=== PATIENT | female | born 1970 | race Caucasian/White ===

== ENCOUNTER 2016-06-03 15:47 | Outpatient (CLI) | payer MEDICAID | END 2016-06-03 15:48 | disposition home or self-care (01) | DX: R30.0 Dysuria (principal); K76.0 Fatty (change of) liver, not elsewhere classified ==

== ENCOUNTER 2016-08-18 08:51 | Outpatient (CLI) | payer MEDICAID | END 2016-08-18 08:52 | disposition home or self-care (01) | DX: C50.412 Malignant neoplasm of upper-outer quadrant of left female breast (principal); L76.34 Postprocedural seroma of skin and subcutaneous tissue following other procedure ==

== ENCOUNTER 2016-09-01 09:45 | Outpatient (CLI) | payer MEDICAID | END 2016-09-01 09:46 | disposition home or self-care (01) | DX: E78.2 Mixed hyperlipidemia (principal); E66.9 Obesity, unspecified ==

== ENCOUNTER 2016-09-13 19:02 | Outpatient (CLI) | payer MEDICAID | END 2016-09-13 19:03 | disposition home or self-care (01) | DX: R10.9 Unspecified abdominal pain (principal); Z85.3 Personal history of malignant neoplasm of breast ==

== ENCOUNTER 2016-10-05 11:41 | Emergency (ER) | payer MEDICAID ==
--- NOTE | 2016-10-05 12:22 | ED Physician Documentation ---
History of Present Illness - Stated complaint Stated Complaint: L FOOT PX- NO INJ - Chief complaint Chief Complaint: Ext Problem - Treatment prior to arrival Treatment prior to arrival: hx from pt 36 f insidious onset pain and swelling to MTP joints first left and now, less so, right no erythema no fever no trauma no other joint pains Review of Systems Musculoskeletal: reports: Pain with weight bearing PD PAST MEDICAL HISTORY - Past Medical History Past Medical History: Yes Cardiovascular: None Respiratory: Asthma Neuro: Peripheral neuropathy Endocrine/Autoimmune: None VEGETABLE COOK: Breast cancer Psych: None Musculoskeletal: Chronic back pain - Past Surgical History Past Surgical History: Yes General: Appendectomy /VEGETABLE COOK: Other - Present Medications Home Medications: Ambulatory Orders Medication Instructions Recorded Confirmed Albuterol Sulfate [Proventil Hfa] 1 puffs IH Q6HR PRN 12/29/15 10/05/16 Hydrochlorothiazide 12.5 mg PO DAILY 12/29/15 10/05/16 Omeprazole 1 cap PO DAILY 12/29/15 10/05/16 Tamoxifen 20 mg PO DAILY 12/29/15 10/05/16 Aspirin [Adult Low Dose Aspirin EC] 81 mg PO DAILY 06/28/16 10/05/16 predniSONE [Deltasone] 20 mg PO [id number] #21 tab 10/05/16 - Allergies Allergies/Adverse Reactions: Allergies Allergy/AdvReac Type Severity Reaction Status Date / Time No Known Drug Allergies Allergy Verified 06/19/13 12:11 - Social History Does the pt smoke?: No Smoking Status: Never smoker Does the pt drink ETOH?: No Does the pt have substance abuse?: No - Immunizations Immunizations are current?: Yes - POLST Patient has POLST: No PD ED PE NORMAL - Vitals Vital signs reviewed: Yes - Extremities Extremities: Other (mod edema but no war,th or swelling to L MTP, pain with ROM , no swelling but still some pain with ROM R MTP, dec senation to all toes 2/2 neuropathy 2/2 prior chemo, + cap refill) - Neuro Neuro: No motor deficit, No sensory deficit Results - Vitals Vitals: Vital Signs - 24 hr 10/05/16 10/05/16 11:45 13:43 Temperature 36.0 C L 36.7 C Heart Rate 76 71 Respiratory 18 18 Rate Blood Pressure 109/75 124/73 O2 Saturation 99 98 Oxygen O2 Source Room air - Rads (name of study) foot Radiology: See rad report (degen changes 1st MTP) Departure - Departure Disposition: 01 Home, Self Care Clinical Impression: Arthritis Condition: Good Instructions: ED Degenerative Joint Disease Prescriptions: predniSONE [Deltasone] 20 mg PO [id number] #21 tab Comments: The exam does not suggest a joint infection or gout The xrays shows degenerative changes but no fractures I recommend that you try taking steroid taper to decrease the inflammation ( since you prefer not to take NSAIDS) as well as glucosamine/chondroitin for joint health. Also we provided some crutches to help get the weight bearing stress off your foot and allow the inflammation to subside Forms: Activity restrictions
--- NOTE | 2016-10-05 12:40 | XRAY Preliminary Report ---
Exam: XR Foot 3 View LT IMPRESSION: No acute fracture or dislocation identified. [facility] SITE ID: [id number]
--- NOTE | 2016-10-05 12:42 | XRAY Report ---
EXAM: LEFT FOOT RADIOGRAPHY EXAM DATE: 10/05/2016 12:19 PM. CLINICAL HISTORY: 2st MTP jt pain swell s trauma. COMPARISON: None. TECHNIQUE: 3 views. FINDINGS: Bones: Bony mineralization appears appropriate. No acute fracture or focal osseous destruction identi fied. Joints: Mild degenerative change at the first MTP, otherwise alignment and joint spaces appear mainta ined. No dislocation. Soft Tissues: No radiopaque foreign body. IMPRESSION: No acute fracture or dislocation identified. [facility] Referring Provider Line: [phone] SITE ID: [id number]
[2016-10-05 13:44] VITALS: BP 124/73
== END 2016-10-05 13:58 | disposition home or self-care (01) ==
LOC: ED 11:41
DX: M19.071 Primary osteoarthritis, right ankle and foot (principal); J45.909 Unspecified asthma, uncomplicated; G62.9 Polyneuropathy, unspecified
CPT/HCPCS: 99283

== ENCOUNTER 2016-10-10 12:50 | Outpatient (CLI) | payer MEDICAID | END 2016-10-10 12:51 | disposition home or self-care (01) | LOC: DI 12:50 | PROVIDERS: ATTEND Internal Medicine Hematology & Oncology | DX: Z79.810 Long term (current) use of selective estrogen receptor modulators (SERMs) (principal); I51.7 Cardiomegaly; C50.919 Malignant neoplasm of unspecified site of unspecified female breast | CPT/HCPCS: 93306 ==

== ENCOUNTER 2016-11-04 11:01 | Day surgery (SDC) | payer MEDICAID ==
[2016-11-04] MEDS ORDERED: LACTATED RINGERS 1,000 ML IV ONE (11:25)
[2016-11-04] MEDS ORDERED: fentaNYL 100 MCG/2 ML VIAL IVP ONE (11:40)
[2016-11-04] MEDS ORDERED: MIDAZOLAM 2 MG/2 ML VIAL IVP ONE (11:40)
[2016-11-04 12:47] VITALS: BP 123/57
== END 2016-11-04 11:02 | disposition home or self-care (01) ==
LOC: SDS 11:01
PROVIDERS: ATTEND Surgery
PROC: 0DBE8ZX Excision of Large Intestine, Via Natural or Artificial Opening Endoscopic, Diagnostic (ICD-10-PCS; 2016-11-04)
PROC: 0DBH8ZX Excision of Cecum, Via Natural or Artificial Opening Endoscopic, Diagnostic (ICD-10-PCS; principal; 2016-11-04 12:00)
DX: R10.31 Right lower quadrant pain (principal); K64.8 Other hemorrhoids; R12 Heartburn; I10 Essential (primary) hypertension; J45.909 Unspecified asthma, uncomplicated; E66.9 Obesity, unspecified; Z85.3 Personal history of malignant neoplasm of breast; Z92.21 Personal history of antineoplastic chemotherapy; Z92.3 Personal history of irradiation; Z79.82 Long term (current) use of aspirin; Z87.891 Personal history of nicotine dependence; Z68.39 Body mass index [BMI] 39.0-39.9, adult
CPT/HCPCS: 45380; J7120; 88305

== ENCOUNTER 2016-11-21 14:24 | Inpatient (IN) | payer MEDICAID ==
--- NOTE | 2016-11-21 14:44 | ED Physician Documentation ---
PD HPI NVD - Stated complaint Stated Complaint: VOMITTING, DIARRHEA - Chief complaint Chief Complaint: Abd Pain - History obtained from History obtained from: Patient - History of Present Illness Timing - onset: Yesterday Timing - details: Abrupt onset, Still present, Still present in ED Associated symptoms: Abdominal pain (diffuse cramping pain, with most area of it ), Other (vomiting and diarrhea with diffuse intermittent abd cramping pains, severe at times.). No: Fever Contributing factors: No: Sick contact, Bad food, Travel, Recent antibiotics Improved by: No: Vomiting, BM, Position Worsened by: Palpation. No: Eating, Breathing, Position Similar symptoms before: No diagnosis (Has had infrequent similar episodes in the past with interval normal stools. Has had persistent right sided abd pains, with workup) Review of Systems Constitutional: reports: Chills. denies: Fever Nose: denies: Rhinorrhea / runny nose, Congestion Throat: denies: Sore throat Cardiac: denies: Chest pain / pressure Respiratory: denies: Dyspnea, Cough, Wheezing GI: reports: Abdominal Pain (crampy diffuse, mostly right sided), Nausea, Vomiting, Diarrhea : denies: Dysuria, Frequency Skin: denies: Rash, Lesions Neurologic: reports: Generalized weakness. 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 CHASER: Breast cancer : None HEENT: None Psych: None Musculoskeletal: Osteoarthritis, Chronic back pain Derm: None - Past Surgical History Past Surgical History: Yes General: Appendectomy, Other /BRONZE CHASER: Other - Present Medications Home Medications: Ambulatory Orders Medication Instructions Recorded Confirmed Albuterol Sulfate [Proventil Hfa] 1 puffs IH Q6HR PRN 12/29/15 11/21/16 Hydrochlorothiazide 12.5 mg PO DAILY 12/29/15 11/21/16 Omeprazole 1 cap PO DAILY 12/29/15 11/21/16 Tamoxifen 20 mg PO DAILY 12/29/15 11/21/16 Aspirin [Adult Low Dose Aspirin EC] 81 mg PO DAILY 06/28/16 11/21/16 - Allergies Allergies/Adverse Reactions: Allergies Allergy/AdvReac Type Severity Reaction Status Date / Time No Known Drug Allergies Allergy Verified 10/28/16 17:25 - Social History Does the pt smoke?: No Smoking Status: Never smoker Does the pt drink ETOH?: No Does the pt have substance abuse?: No - Family History Family history: reports: Other (no Crohns nor UC.) - Immunizations Immunizations are current?: Yes - POLST Patient has POLST: No PD ED PE NORMAL - Vitals Vital signs reviewed: Yes - General General: Alert and oriented X 3, Well developed/nourished, Other (appears uncomfortable) - HEENT HEENT: Moist mucous membranes, Pharynx benign - Neck Neck: Supple, no meningeal sign, No adenopathy - Cardiac Cardiac: RRR, No murmur - Respiratory Respiratory: Clear bilaterally - Abdomen Abdomen: Soft, Non distended, No organomegaly, Other (tender mid abdomen and right sided mid abdomen mostly, but some diffusely without percussion nor rebound. ). No: Normal bowel sounds (increased) - Female Female : Deferred - Rectal Rectal: Deferred - Back Back: No CVA TTP - Derm Derm: Normal color, Warm and dry, No rash - Extremities Extremities: No deformity, No tenderness to palpate - Neuro Neuro: Alert and oriented X 3, No motor deficit, Normal speech Results - Vitals Vitals: Vital Signs - 24 hr 11/21/16 11/21/16 11/21/16 14:26 15:57 17:55 Temperature 36.3 C L Heart Rate 96 78 77 Respiratory 16 18 16 Rate Blood Pressure 139/85 H 116/71 120/56 L O2 Saturation 96 96 100 Oxygen O2 Source Room air - Labs Labs: Laboratory Tests 11/21/16 11/21/16 11/21/16 15:21 15:30 15:30 WBC 10.4 RBC 4.23 Hgb 12.7 Hct 36.1 L MCV 85.5 MCH 30.0 MCHC 35.1 RDW 13.5 Plt Count 199 MPV 7.3 L Neut # 8.9 H Lymph # 0.9 L Fajardo # 0.5 Eos # 0.0 Baso # 0.1 Absolute Nucleated RBC 0.00 Nucleated RBCs 0.0 ESR Sodium 135 Potassium 3.4 L Chloride 101 Carbon Dioxide 25 Anion Gap 9.0 BUN 11 Creatinine 0.6 Estimated GFR (MDRD) 107 Glucose 115 H Calcium 8.9 Magnesium 1.8 Total Bilirubin 0.3 AST 22 ALT 19 Alkaline Phosphatase 52 Total Protein 7.4 Albumin 3.9 Globulin 3.5 Albumin/Globulin Ratio 1.1 Lipase 14 L Urine Color YELLOW Urine Clarity HAZY Urine pH 6.0 Ur Specific [place] >=1.030 H Urine Protein 100 H Urine Glucose (UA) NEGATIVE Urine Ketones 15 H Urine Occult Blood LARGE H Urine Nitrite NEGATIVE Urine Bilirubin Urine Urobilinogen 0.2 (NORMAL) Ur Leukocyte Esterase NEGATIVE Ur Microscopic Review NOT INDICATED Urine Culture Comments NOT INDICATED Urine HCG, Qual NEGATIVE 11/21/16 15:30 WBC RBC Hgb Hct MCV MCH MCHC RDW Plt Count MPV Neut # Lymph # Fajardo # Eos # Baso # Absolute Nucleated RBC Nucleated RBCs ESR 33 H Sodium Potassium Chloride Carbon Dioxide Anion Gap BUN Creatinine Estimated GFR (MDRD) Glucose Calcium Magnesium Total Bilirubin AST ALT Alkaline Phosphatase Total Protein Albumin Globulin Albumin/Globulin Ratio Lipase Urine Color Urine Clarity Urine pH Ur Specific [place] Urine Protein Urine Glucose (UA) Urine Ketones Urine Occult Blood Urine Nitrite Urine Bilirubin Urine Urobilinogen Ur Leukocyte Esterase Ur Microscopic Review Urine Culture Comments Urine HCG, Qual - Rads (name of study) abd CT Radiology: Prelim report reviewed (colitis in ascending and transverse colon without focal abscess/perforation/etc.), EMP read contemporaneously PD MEDICAL DECISION MAKING - ED course Complexity details: re-evaluated patient (She was better with some fluids and meds for about 1 1/2 hours, but then symptoms back again. Given repeat meds for nausea and pain with improvement in cramps/pain, but still with nausea and emesis of sips of water. Given Phenergan IV. Recheck is still some nausea and attempted PO intake with emesis. ), considered differential (Seems likely viral GE or food related, but does have some area right abd (mid to lower) that is worse and had biopsies with colonoscopy 2 weeks ago. Concern for abscess, perforation, procedure related, though would expect those to be within few days to week or so. CT done to evaluate, along with IV fluids and meds. ), d/w patient, d/w consultant education (Dr. Deluna, chyron operator for surgery, who felt the CT findings and time interval from biopsies/colonoscopy would not be consistent with procedure related problem. Thus less likely to be bacterial. ), other ( Still with nausea and some cramps after several different medications. I don't feel she will maintain hydration nor be able to take meds as not tolerating PO here. Talked with Hospitalist about OBS. ) Departure - Departure Disposition: ED Place in Observation Clinical Impression: Nausea vomiting and diarrhea Abdominal pain Qualifiers: Abdominal location: generalized Qualified Code(s): R10.84 - Generalized abdominal pain Intractable vomiting with nausea Qualifiers: Vomiting type: unspecified Qualified Code(s): R11.2 - Nausea with vomiting, unspecified Condition: Stable Record reviewed to determine appropriate education?: Yes
[2016-11-21] MEDS ORDERED: KETOROLAC 60 MG/2 ML VIAL IVP STA (15:08)
[2016-11-21] MEDS ORDERED: ONDANSETRON 4 MG/2 ML VIAL IVP STA ×2 (15:08→17:53)
[2016-11-21] MEDS ORDERED: HYDROmorphone 1 MG/ML SYRINGE IVP STA ×2 (15:08→17:53)
[2016-11-21] MEDS ORDERED: SODIUM CHLORIDE 0.9% 1,000 ML IV ONE ×2 (15:08→18:53)
[2016-11-21] MEDS ORDERED: KETOROLAC 30 MG/ML VIAL ONE (15:33)
[2016-11-21] MEDS ORDERED: HYDROmorphone 1 MG/ML SYRINGE ONE ×2 (15:33→17:54)
[2016-11-21] MEDS ORDERED: ONDANSETRON 4 MG/2 ML VIAL ONE ×2 (15:33→17:54)
[2016-11-21 15:38] LABS: HCG UR QUAL NEGATIVE; UA CHARGE (STRIP ONLY) YES; UR CULTURE IF IND NOT INDICATED
[2016-11-21 15:38] LABS: BASOPHILS # (AUTO) 0.1 10^3/uL (0.0-0.1); BASOPHILS % (AUTO) 0.5 %; EOSINOPHILS % (AUTO) 0.4 %; HCT - HEMATOCRIT 36.1 % (37.0-47.0); HGB - HEMOGLOBIN 12.7 g/dL (12.0-16.0); LYMPHOCYTES # (AUTO) 0.9 10^3/uL (1.5-3.5); LYMPHOCYTES % (AUTO) 8.4 %; MEAN CORPUSCULAR HGB CONC 35.1 g/dL (32.0-36.0); MEAN CORPUSCULAR VOLUME 85.5 fL (81.0-99.0); MEAN PLATELET VOLUME 7.3 fL (7.9-10.8); MONOCYTES # (AUTO) 0.5 10^3/uL (0.0-1.0); MONOCYTES % (AUTO) 4.8 %; NEUTROPHILS # (AUTO) 8.9 10^3/uL (1.5-6.6); NEUTROPHILS % (AUTO) 85.9 %; RED BLOOD COUNT 4.23 10^6/uL (4.20-5.40); RED CELL DISTRIBUTION WIDTH 13.5 % (12.0-15.0); UNCORRECTED WHITE BLOOD COUNT 10.4 x10^3/uL; WHITE BLOOD COUNT 10.4 x10^3/uL (4.8-10.8)
[2016-11-21 15:48] LABS: ALBUMIN/GLOBULIN RATIO 1.1 (1.0-2.2); BILIRUBIN,TOTAL 0.3 mg/dL (0.2-1.0); CALCIUM 8.9 mg/dL (8.5-10.3); CREATININE 0.6 mg/dL (0.4-1.0); MAGNESIUM 1.8 mg/dL (1.7-2.8); POTASSIUM 3.4 mmol/L (3.5-5.0); TOTAL PROTEIN 7.4 g/dL (6.7-8.2)
[2016-11-21] MEDS ORDERED: IOPAMIDOL-300 100 ML VIAL IVP ONE (16:20)
[2016-11-21] MEDS ORDERED: DIPHENOX/ATROPINE 2.5/0.025 MG TABLET PO STA (17:13)
[2016-11-21] MEDS ORDERED: DIPHENOX/ATROPINE 2.5/0.025 MG TABLET PO ONE (17:19)
--- NOTE | 2016-11-21 17:19 | CT Preliminary Report ---
Exam: CT Abdomen/Pelvis W/ IMPRESSION: 1. Mild colitis. No fluid collections or pneumoperitoneum. [facility] SITE ID: [id number]
--- NOTE | 2016-11-21 17:22 | CT Report ---
EXAM: CT ABDOMEN AND PELVIS EXAM DATE: 11/21/2016 04:23 PM. CLINICAL HISTORY: V/D, abd pain; colonoscopy 2 weeks ago. COMPARISONS: None. TECHNIQUE: Routine helical CT imaging was performed through the abdomen and pelvis. IV contrast: 100 mL Isovue-300. Enteric contrast: No. Reconstructions: Coronal and sagittal. In accordance with CT protocol optimization, one or more of the following dose reduction techniques w ere utilized for this exam: automated exposure control, adjustment of mA and/or KV based on patient s ize, or use of iterative reconstructive technique. FINDINGS: Lung Bases: Unremarkable. Liver: Slightly decreased attenuation suggesting fatty infiltration. No focal liver lesions. Gallbladder/Bile Ducts: Unremarkable. Spleen: Normal. Pancreas: Normal. Adrenal Glands: Normal. Kidneys: Normal. No masses or hydronephrosis. Peritoneal Cavity/Bowel: The colon is under distended however there is mild pericolonic stranding hiwot und the transverse and ascending colon mild mural thickening also seen. No small bowel dilatation. No evidence of appendicitis. Pelvic Organs: Normal. The bladder and visualized pelvic organs are within normal limits. Vasculature: No aneurysms or other significant abnormality. Bones: No significant abnormality. Other: None. IMPRESSION: 1. Mild colitis. No fluid collections or pneumoperitoneum. [facility] Referring Provider Line: [phone] SITE ID: [id number]
[2016-11-21] MEDS ORDERED: DEXAMETHASONE 10 MG/ML VIAL IVP STA (17:41)
[2016-11-21] MEDS ORDERED: DEXAMETHASONE 10 MG/ML VIAL ONE (17:51)
[2016-11-21] MEDS ORDERED: PROMETHAZINE INJ 12.5 MG in SODIUM CHLORIDE 0.9% 50 ML IV STA (18:35)
[2016-11-21] MEDS ORDERED: PROMETHAZINE 25 MG/1 ML VIAL ONE (18:39)
[2016-11-21] MEDS ORDERED: SODIUM CHLORIDE FLUSH 0.9% 10 ML SYRINGE IVP PRN (19:25)
[2016-11-21] MEDS ORDERED: ACETAMINOPHEN 325 MG TABLET PO PRN (19:25)
--- NOTE | 2016-11-21 19:36 | HISTORY & PHYSICAL EXAMINATION ---
Chief Complaint - Chief Complaint Chief Complaint: N/V/D History of Present Illness - Admitted From Admitted From:: ER - History Obtained From Records Reviewed: EMR. ER/ History obtained from: patient Exam Limitations: none - History of Present Illness HPI Comment/Other: this 46-year-old female presents to the emergency room complaining of nausea, vomiting, diarrhea, fever and chills,, x48 hours. She reports her temperature has ranged From 99-101. She is also having crampy lower abdominal pain, associated with watery light brown diarrhea. She has vomited mainly clear fluid. She denies blood in vomitus or in her stool. In the ER she received IV fluids, antibiotics,, pain medications,, but still could not hold down oral fluids. She is now admitted for observation. She also reports mild headache, 5-10 pound weight loss over the last several days. She says she's been having mild right lower quadrant discomfort intermittently for several months. She denies any known sick contacts. She has not done any traveling recently .She's not eaten outat any restaurants. She has not done any camping. - -she does report several episodes similar to this over the past couple of years. She recently had a CAT scan suggestive of kidney stones, but followup sonogram was negative. She does hav hematuria today, and is unaware of any history of this.. She stopped having menses about one year ago due to chemotherapy. She has not had any recent vaginal bleeding. 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 -Of note, she does smoke marijuana every day, for the past 2 years. She reports she uses 4-5 bowls per day. past medical history: Breast cancer, BRCA negative, stage II, T1 N1,, June 2015, ER positive, status post lumpectomy,, chemotherapy x6, radiation,, Herceptin History of abdominal pain with nausea Asthma History of peripheral neuropathy and history of chronic back pain Reported history of shingles history of appendectomy; left breast lumpectomy in May [address] suggested renal stone, but ultrasound showed no stones Obesity Hypertension GERD Medications: Tamoxifen 20 mg daily Omeprazole one cap daily HCTZ 12.5 mg daily Aspirin 81 mg daily Albuterol 1 puff every 6 hours when necessary allergies: No known drug allergies Family history:she is unaware of any significant family illnesses, and says her family is alive and well. Social history: Patient smoked for approximately 30 years, but quit in 2012. She does smoke marijuana daily,, as noted above. She drinks alcohol rarely. She does not currently work outside History - Past Medical History Cardiovascular: reports: Hypertension Respiratory: reports: Asthma Neuro: reports: Peripheral neuropathy Endocrine/Autoimmune: reports: None GI: reports: None FELT CARBONIZER: reports: Breast cancer : reports: None HEENT: reports: None Psych: reports: None Musculoskeletal: reports: Osteoarthritis, Chronic back pain Derm: reports: None MRSA Hx?: No - Past Surgical History General: reports: Appendectomy, Other /FELT CARBONIZER: reports: Other - POLST Patient has POLST: No Meds/Allgy - Home Medications Home Medications: Ambulatory Orders Medication Instructions Recorded Confirmed Albuterol Sulfate [Proventil Hfa] 1 puffs IH Q6HR PRN 12/29/15 11/21/16 Hydrochlorothiazide 12.5 mg PO DAILY 12/29/15 11/21/16 Omeprazole 1 cap PO DAILY 12/29/15 11/21/16 Tamoxifen 20 mg PO DAILY 12/29/15 11/21/16 Aspirin [Adult Low Dose Aspirin EC] 81 mg PO DAILY 06/28/16 11/21/16 - Allergies Allergies/Adverse Reactions: Allergies Allergy/AdvReac Type Severity Reaction Status Date / Time No Known Drug Allergies Allergy Verified 10/28/16 17:25 Exam - Vital Signs Reviewed Vital Signs: Yes Vital Signs: Vital Signs x48h Temp Pulse Resp BP Pulse Ox 11/21/16 17:55 77 16 120/56 L 100 11/21/16 15:57 78 18 116/71 96 11/21/16 14:26 36.3 C L 96 16 139/85 H 96 on exam, she is a well-developed, well-nourished, moderately overweight white female, in no acute distress. She occasional of stinging in her left hand, at the site of her IV. Towards the end of our interview, she did complain of right lower quadrant cramping. head: Normocephalic, atraumatic. Eyes: PERRLA LA, EOMI, anicteric. Ears: Right TM and canal are normal. Left TM is normal. Left canal has a small hematoma of the floor of the canal. Pharynx: Is clear. Mucosa appears She is edentulous. She does have an upper plate.. Next Neck: Is supple, without lymphadenopathy, JVD, thyromegaly, bruits. Next Cardiac exam: Shows regular rate and rhythm, with normal S1 and S2. No murmurs , rubs, gallops are noted. Lungs: Minimal wheeze, expiratory, noted at the left base. Otherwise lungs are clear to ausculta, without rales or rhonchi. Abdomen: Is soft, without guarding or rebound.bowel lSounds are active. she is fairly tender, and epigastric area, and right lower quadrant area. No masses are obvious. there is no CVA tenderness Extremities: Show no significant cya, clubbing,, edema. Neurologic exam: Is grossly nonfocal. Skin exam: Shows occasional tattoos, but no obvious rashes. Conclusion/Plan - Lab Results Fish Bones: 11/21/16 15:30 11/21/16 15:30 Other Lab Results: sedimentation rate is elevatedat 33. lipase is normal at 14 LFTs are within normal limits Urinalysis: Shows specific gravity greater than 1.030, protein 100 mg,, occult blood large, ketones 15 Urine hCG is negative CT abdomen: Reported as showing mild colitis, with mild pericolonic stranding around transverse and descending colon, with mild mural thickening.., without any fluid collections. colonoscop, 11/04/2016: Cecal polyp, biopsy.pathology read as normal. 10/10/2016: Echocardiogram: Mild concentric LVH. Normal systolic function with ejection fraction 60% Issues/Core Measures - Anticipated LOS Anticipated Stay Length: Less than 2 midnights - Issues Hospital Issues and Management Plan: #1. GI. Patient presents with abdominal pain, nausea and vomiting and diarrhea,, consistent with possible acute gastroenteritis, although CT scan is also suggestive of possible colitis. Patient failed to improve in the emergency room after IV fluids and anti-emetics, to the point that she could not be Discharged. She will therefore be admitted for continued IV fluids and symptom control, and continued observation. -admit to observation. -IV fluids. -Anti-emetics. the pain meds as needed. -Monitor vital signs. Check followup labs. -stool studies, if she has more diarrhea. -she is also a daily marijuana user, and may actually have developed cannabis hyperemesis syndrome. #2. Renal. Mild hypokalemia, likely due to GI losses. -IV replacement. #3. Code Status:Full code. #4. DVT prophylaxis: Subcutaneous heparin. #5. Hematuria. the patient does not have menses anymore.. She may need further workup after discharge. She is at increased risk for bladder cancer, as well as uterine cancer. there is a recent questionable history of renal stones. #6. History of breast cancer -followed by Dr. Hoang of oncology. #7. Hypertension. Hold HCTZ. Continue to follow. #8. History of asthma. When necessary albuterol. this visit took approximately 60 minutes,, to review old records,, review current test results, interview and examine her, and write orders. - DVT/VTE - Prophylaxis VTE/DVT Device ordered at admit?: No VTE/DVT Prophylaxis med ordered at admit?: Yes
[2016-11-21] MEDS ORDERED: NACL IV SCH (20:00)
[2016-11-21] MEDS ORDERED: POTASSIUM CHLORIDE IV SCH (20:00)
[2016-11-21] MEDS ORDERED: DEXTROSE IV SCH (20:00)
[2016-11-21] MEDS ORDERED: LOPERAMIDE 2 MG CAPSULE PO PRN (20:31)
[2016-11-21] MEDS ORDERED: ONDANSETRON 4 MG/2 ML VIAL IVP PRN (20:35)
[2016-11-21] MEDS: POTASSIUM CHLOR 10 MEQ/100 ML 100 ML IV SCH ×2 (20:53→22:39)
[2016-11-21] MEDS: D5.45NS W/20 MEQ KCL 1,000 ML IV SCH (20:53)
[2016-11-21] MEDS: HEPARIN 5,000 UNIT/ML VIAL SUBQ SCH (20:53)
[2016-11-21] MEDS ORDERED: PROMETHAZINE 12.5 MG SUPP PR PRN (21:22)
[2016-11-21] MEDS: SODIUM CHLORIDE FLUSH 0.9% 10 ML SYRINGE IVP SCH (21:47)
[2016-11-22] MEDS: LORazepam 2 MG/ML SYRINGE IVP PRN ×2 (00:25→06:02)
[2016-11-22] MEDS: D5.45NS W/20 MEQ KCL 1,000 ML IV SCH ×3 (04:52→21:26)
[2016-11-22] MEDS: SODIUM CHLORIDE FLUSH 0.9% 10 ML SYRINGE IVP SCH ×3 (05:05→21:28)
[2016-11-22 05:51] LABS: BASOPHILS % (AUTO) 0.2 %; HCT - HEMATOCRIT 35.4 % (37.0-47.0); HGB - HEMOGLOBIN 11.9 g/dL (12.0-16.0); LYMPHOCYTES # (AUTO) 0.6 10^3/uL (1.5-3.5); LYMPHOCYTES % (AUTO) 8.1 %; MEAN CORPUSCULAR HEMOGLOBIN 29.4 pg (27.0-31.0); MEAN CORPUSCULAR HGB CONC 33.6 g/dL (32.0-36.0); MEAN CORPUSCULAR VOLUME 87.4 fL (81.0-99.0); MEAN PLATELET VOLUME 7.1 fL (7.9-10.8); MONOCYTES # (AUTO) 0.2 10^3/uL (0.0-1.0); MONOCYTES % (AUTO) 3.2 %; NEUTROPHILS # (AUTO) 6.1 10^3/uL (1.5-6.6); NEUTROPHILS % (AUTO) 88.5 %; RED BLOOD COUNT 4.05 10^6/uL (4.20-5.40); UNCORRECTED WHITE BLOOD COUNT 6.9 x10^3/uL; WHITE BLOOD COUNT 6.9 x10^3/uL (4.8-10.8)
[2016-11-22 06:03] LABS: ALBUMIN/GLOBULIN RATIO 0.9 (1.0-2.2); BILIRUBIN,TOTAL 0.2 mg/dL (0.2-1.0); CALCIUM 8.6 mg/dL (8.5-10.3); CREATININE 0.6 mg/dL (0.4-1.0); POTASSIUM 3.9 mmol/L (3.5-5.0); TOTAL PROTEIN 6.8 g/dL (6.7-8.2)
[2016-11-22] MEDS ORDERED: POLYETHYLENE GLYCOL 3350 17 GM PACKET PO SCH (09:00)
[2016-11-22] MEDS: FAMOTIDINE 20 MG/50 ML 50 ML IV SCH (09:18)
[2016-11-22] MEDS: HEPARIN 5,000 UNIT/ML VIAL SUBQ SCH ×2 (10:08→21:28)
--- NOTE | 2016-11-22 13:48 | Discharge Plan ---
Discharge Plan Disposition: 01 Home, Self Care Condition: Stable No Smoking: If you smoke, Please STOP! Call for help.
[2016-11-22] MEDS: TAMOXIFEN 10 MG TABLET PO SCH (14:49)
--- NOTE | 2016-11-22 14:50 | PROVIDER PROGRESS NOTE ---
Subjective - Prog Note Date Prog Note Date: 11/22/16 - Subjective Pt reports feeling: No change Subjective: patient report her abdominal cramp is 5 out of 10, last night was 11 out of 10. Plan to d/c patient, re-assess patient. Patient state her pain is going up to 7 out 10, can not tolerate foot, nausea but not vomiting. Patient had stool sample , it is sent for test for C.Diff Objective - Vital Signs/Intake & Output Vital Signs: Vital Signs x48h Temp Pulse Resp BP Pulse Ox 11/22/16 08:45 37.0 C 77 16 125/67 97 Intake & Output: Intake & Output 11/19/16 11/20/16 11/21/16 11/22/16 23:59 23:59 23:59 23:59 Intake Total 100 2099 Output Total 1 Balance 100 2098 - Objective General Appearance: positive: Alert, Mild distress. negative: No acute distress , Lethargic Eyes Bilateral: positive: Normal inspection, PERRL, EOMI. negative: No lid inflammation ENT: positive: ENT inspection nml, Pharynx nml, No signs of dehydration. negative: Purulent nasal drainage, Pharyngeal erythema, Oral lesions Neck: positive: Nml inspection, Thyroid nml, No JVD, Trachea midline. negative : Thyromegaly, Lymphadenopathy (R), Stiff neck, Carotid bruit, Swelling/bruising Respiratory: positive: Chest non-tender, No respiratory distress, Breath sounds nml. negative: Wheezes, Rales, Rhonchi Cardiovascular: positive: Regular rate & rhythm, No murmur, No gallop. negative : Irregularly irregular, Tachycardia, Bradycardia, Systolic murmur, Diastolic murmur Peripheral Pulses: 2+ Radial (R), 2+ Radial (L), 2+ Dorsalis pedis (R), 2+ Dorsalis pedis (L) Abdomen: positive: Non-tender, Nml bowel sounds, No distention, Other ( abdominal soft.). negative: Tenderness, Guarding, Rebound, Abnml bowel sounds Back: positive: Nml inspection. negative: CVA tenderness (R), CVA tenderness (L ) Skin: positive: Color nml, No rash, Warm, Dry. negative: Cyanosis, Diaphoresis , Pallor Extremities: positive: Non-tender, Full ROM, Nml appearance, No pedal edema. negative: Pedal edema, Calf tenderness, Joint swelling Neurologic/Psychiatric: positive: Oriented x3, CN's nml (2-12), Motor nml, Sensation nml. negative: Disoriented to person, Disoriented to place, Disoriented to time, Weakness, Sensory loss, Facial droop, Slurred/abnml speech - Lab Results Fish Bones: 11/23/16 05:27 11/23/16 05:27 Other Labs: Lab Results x24hrs 11/22/16 11/22/16 Range/Units 05:40 05:40 WBC 6.9 (4.8-10.8) x10^3/uL RBC 4.05 L (4.20-5.40) 10^6/uL Hgb 11.9 L (12.0-16.0) g/dL Hct 35.4 L (37.0-47.0) % MCV 87.4 (81.0-99.0) fL MCH 29.4 (27.0-31.0) pg MCHC 33.6 (32.0-36.0) g/dL RDW 13.0 (12.0-15.0) % Plt Count 193 (130-450) 10^3/uL MPV 7.1 L (7.9-10.8) fL Neut # 6.1 (1.5-6.6) 10^3/uL Lymph # 0.6 L (1.5-3.5) 10^3/uL [place] # 0.2 (0.0-1.0) 10^3/uL Eos # 0.0 (0.0-0.7) 10^3/uL Baso # 0.0 (0.0-0.1) 10^3/uL Absolute Nucleated RBC 0.00 x10^3/uL Nucleated RBCs 0.0 /100WBC Sodium 137 (135-145) mmol/L Potassium 3.9 (3.5-5.0) mmol/L Chloride 106 (101-111) mmol/L Carbon Dioxide 23 (21-32) mmol/L Anion Gap 8.0 (6-13) BUN 9 (6-20) mg/dL Creatinine 0.6 (0.4-1.0) mg/dL Estimated GFR (MDRD) 107 (>89) Glucose 164 H (70-100) mg/dL Calcium 8.6 (8.5-10.3) mg/dL Total Bilirubin 0.2 (0.2-1.0) mg/dL AST 20 (10-42) IU/L ALT 16 (10-60) IU/L Alkaline Phosphatase 48 (42-121) IU/L Total Protein 6.8 (6.7-8.2) g/dL Albumin 3.3 (3.2-5.5) g/dL Globulin 3.5 (2.1-4.2) g/dL Albumin/Globulin Ratio 0.9 L (1.0-2.2) Assessment/Plan - Problem List (1) Abdominal pain Impression: patient had abdominal pain on and off at right lateral middle of abdomen area for at least 4 months. For the similar symptoms patient visited ER for couple of times. two weeks ago patient had colonoscopy which was unremarkable, previous CT of abdomen plus US revealed unremarkable as well. Last night CT suggest mild colitis but patient report nausea and vomiting, which not match the symptoms. Patient may have enterogastritis. Patient report she is feeling better at morning at pain 5/10, but when I plan to D/C her, she report she can not tolerate the soft low text food, and had pain at 7/10, nausea without vomiting switch patient to impatient for intractable abdominal pain, continue IVF, clear diet. add Bendyl continue to monitor vital sign In the afternoon patient report she has still abdominal pain at 7/10, can not tolerate the food and with nausea but no vomiting. For this reason, Patient will continue to be monitored over night Qualifiers: Abdominal location: generalized Qualified Code(s): R10.84 - Generalized abdominal pain (2) Intractable vomiting with nausea Impression: continue anti-emetics daily CBC, CMP, replacement of electrolytic as needed Qualifiers: Vomiting type: unspecified Qualified Code(s): R11.2 - Nausea with vomiting , unspecified (3) HTN (hypertension) Impression: stable, closely monitor BP, adjust as needed (4) History of breast cancer Impression: patient is under care of Dr. Hoang, resume Tamoxifen (5) Hematuria Impression: discuss with patient, patient state she will see [employer] as out patient
[2016-11-22] MEDS: DICYCLOMINE 10 MG CAPSULE PO SCH ×3 (15:06→21:26)
[2016-11-22] MEDS: MORPHINE 2 MG/ML SYRINGE IVP PRN ×2 (16:00→21:11)
[2016-11-22] MEDS ORDERED: PROMETHAZINE 25 MG SUPP PR PRN (17:56)
[2016-11-22] MEDS ORDERED: ALBUTEROL NEB 2.5 MG/3 ML INH PRN (19:00)
[2016-11-23] MEDS: SODIUM CHLORIDE FLUSH 0.9% 10 ML SYRINGE IVP SCH ×2 (05:07→14:06)
[2016-11-23] MEDS: D5.45NS W/20 MEQ KCL 1,000 ML IV SCH ×2 (05:07→14:06)
[2016-11-23 06:02] LABS: BASOPHILS % (AUTO) 0.4 %; EOSINOPHILS # (AUTO) 0.1 10^3/uL (0.0-0.7); EOSINOPHILS % (AUTO) 1.9 %; HCT - HEMATOCRIT 35.3 % (37.0-47.0); HGB - HEMOGLOBIN 11.6 g/dL (12.0-16.0); LYMPHOCYTES # (AUTO) 2.2 10^3/uL (1.5-3.5); LYMPHOCYTES % (AUTO) 30.1 %; MEAN CORPUSCULAR HEMOGLOBIN 29.1 pg (27.0-31.0); MEAN CORPUSCULAR VOLUME 88.2 fL (81.0-99.0); MEAN PLATELET VOLUME 7.7 fL (7.9-10.8); MONOCYTES # (AUTO) 0.6 10^3/uL (0.0-1.0); MONOCYTES % (AUTO) 8.2 %; NEUTROPHILS # (AUTO) 4.4 10^3/uL (1.5-6.6); NEUTROPHILS % (AUTO) 59.4 %; NUCLEATED RED BLOOD CELLS AUTO 0.1 /100WBC; RED CELL DISTRIBUTION WIDTH 13.4 % (12.0-15.0); UNCORRECTED WHITE BLOOD COUNT 7.5 x10^3/uL; WHITE BLOOD COUNT 7.5 x10^3/uL (4.8-10.8)
[2016-11-23 06:16] LABS: BILIRUBIN,TOTAL 0.2 mg/dL (0.2-1.0); CALCIUM 8.4 mg/dL (8.5-10.3); CREATININE 0.7 mg/dL (0.4-1.0); POTASSIUM 3.6 mmol/L (3.5-5.0); TOTAL PROTEIN 6.1 g/dL (6.7-8.2)
[2016-11-23] MEDS: DICYCLOMINE 10 MG CAPSULE PO SCH ×3 (10:04→17:22)
[2016-11-23] MEDS: FAMOTIDINE 20 MG/50 ML 50 ML IV SCH (10:04)
[2016-11-23] MEDS: TAMOXIFEN 10 MG TABLET PO SCH (10:04)
[2016-11-23] MEDS: HEPARIN 5,000 UNIT/ML VIAL SUBQ SCH (10:04)
--- NOTE | 2016-11-23 13:18 | Discharge Plan ---
Discharge Plan Disposition: Home, Self Care Condition: Good Prescriptions: Dicyclomine [Bentyl] 10 mg PO QID #40 capsule Ciprofloxacin 750 mg PO BID #20 ml Diet: Regular (noninflammatory diet) Activity Restrictions: Activity as Tolerated Shower Restrictions: No Driving Restrictions: No Weight Bearing: Full Weight Instruction Topics: Campylobacter Culture Stool, Campylobacter Infec Additional Instructions or Follow Up instructions: Please continue to take all home medication as prescribed. You have been given a prescription for Ciprofloxacin for a Campylobacter infection found in your colon and causing diarrhea. You will need to drink more fluids, specifically water and avoid caffeine and soda products. do not use antibacterial medications since these can inhibit the release of bacterial from the colon. Take the probiotics as prescribed. continue to advance diet as tolerated. You need to avoid gluten and dairy products in the diet which can aggravate inflammation in the gut. Get plenty of sleep at night and exercise daily with walking. Return to the ER if symptoms should get worse or return. Go to the ER if you have chest pain or shortness of breath. No Smoking: If you smoke, Please STOP! Call for help. Follow-up with: Azam Roy MD [Primary Care Provider] -
--- NOTE | 2016-11-23 13:26 | DISCHARGE SUMMARY ---
"Discharge Summary Admit Date: 11/22/16 Discharge Date: 11/23/16 Discharging Provider: Arianne Trujillo APRN Code Status: Attempt Resuscitation Condition at Discharge: Good Discharge Disposition: 01 Home, Self Care Discharge Facility Name: home - DIAGNOSES Admission Diagnoses: 1. Acute Dehydration with acute nausea, vomiting and diarrhea secondary to gastroenteritis with campylobacter infection 2. Acute infectious colitis, unspecified organism 3. Obesity with BMI>35 with excessive caloric intake 4. Cannbis abuse, uncomplicated Discharge Diagnoses with Status of Each Condition: 1. Acute Dehydration with acute nausea, vomiting and diarrhea secondary to gastroenteritis with campylobacter infection 2. Acute infectious colitis 3. Obesity with BMI>35 with excessive caloric intake 4. Cannabis abuse, uncomplicated 5. Personal history of substance abuse, unspecified - HPI History of Present Illness: This 46-year-old female presents to the emergency room complaining of nausea, vomiting, diarrhea, fever and chills,, x48 hours. She reports her temperature has ranged From 99-101. She is also having crampy lower abdominal pain, associated with watery light brown diarrhea. She has vomited mainly clear fluid. She denies blood in vomitus or in her stool. In the ER she received IV fluids, antibiotics,, pain medications,, but still could not hold down oral fluids. She is now admitted for observation. She also reports mild headache, 5-10 pound weight loss over the last several days. She says she's been having mild right lower quadrant discomfort intermittently for several months. She denies any known sick contacts. She has not done any traveling recently .She's not eaten out at any restaurants. She has not done any camping. - -she does report several episodes similar to this over the past couple of years. She recently had a CAT scan suggestive of kidney stones, but followup sonogram was negative. She does have hematuria today, and is unaware of any history of this.. She stopped having menses about one year ago due to chemotherapy. She has not had any recent vaginal bleeding. She did have a recent pelvic exam with her radio frequency technician. -Of note, she does smoke marijuana every day, for the past 2 years. She reports she uses 4-5 bowls per day. - CONSULTS | PROCEDURES Consultations: none Procedures: Patient was admitted through the ER for complaints of nausea, vomiting and diarrhea and placed on IVF NS with immodium, and bentyl. Her temperature was monitored and given tylenol for fever. - HOSPITAL COURSE Hospital Course: Patient was admitted for gastroenteristis and colitis on CT. She was given IV fluids NS. -Anti-emetics with bentyl and pain meds as needed. -Monitor vital signs. Her daily labs were checked. Stool cultures performed and were positive for campylobacter bacteria. On the differential was the developement of cannabis hyperemesis syndrome since she is a user for 2-3 years. For acute kidney injury due to GI losses, IV replacement ordered. She was started on a clear liquid diet. Her electrolytes were monitored daily. They were replaced if needed. She had mild hypokalemia, likely due to GI losses. Potassium was replaced with IV potassium. DVT prophylaxis: Subcutaneous heparin. Since patient had Hematuria. the patient does not have menses anymore.. She may need further workup after discharge. She is at increased risk for bladder cancer, as well as uterine cancer. there is a recent questionable history of renal stones. #6. History of breast cancer -followed by Dr. Hoang of oncology. #7. Hypertension. Hold HCTZ. Continue to follow. #8. History of asthma. When necessary albuterol. - ALLERGIES Allergies/Adverse Reactions: Allergies Allergy/AdvReac Type Severity Reaction Status Date / Time No Known Drug Allergies Allergy Verified 10/28/16 17:25 - MEDICATIONS Home Medications: Ambulatory Orders Medication Instructions Recorded Confirmed Albuterol Sulfate [Proventil Hfa 1 puffs IH Q6HR PRN 12/29/15 11/21/16 Inhaler] Hydrochlorothiazide 12.5 mg PO DAILY 12/29/15 11/21/16 Omeprazole 1 cap PO DAILY 12/29/15 11/21/16 Tamoxifen 20 mg PO DAILY 12/29/15 11/21/16 Aspirin [Adult Low Dose Aspirin EC] 81 mg PO DAILY 06/28/16 11/21/16 Ciprofloxacin 750 mg PO BID #20 ml 11/23/16 Dicyclomine [Bentyl] 10 mg PO QID #40 capsule 11/23/16 Saccharomyces Boulardii [Florastor] 500 mg PO BID #30 capsule 11/23/16 Home Medications Other | Comments: self medicated with marajuana use for past cancer diagnosis - PHYSICAL EXAM AT DISCHARGE General Appearance: positive: No acute distress, Alert Eyes Bilateral: positive: Normal inspection, PERRL ENT: positive: ENT inspection nml, Pharynx nml, No signs of dehydration Neck: positive: Nml inspection, Thyroid nml, No JVD, Trachea midline Respiratory: positive: Chest non-tender, No respiratory distress, Breath sounds nml Cardiovascular: positive: Regular rate & rhythm, No murmur, No gallop Peripheral Pulses: positive: 2+ Abdomen: positive: Non-tender, No organomegaly, No distention Back: positive: Nml inspection Skin: positive: Color nml, No rash, Warm, Dry Extremities: positive: Full ROM, Nml appearance Neurologic/Psychiatric: positive: Oriented x3, CN's nml (2-12), Motor nml, Sensation nml, Mood/affect nml - LABS Result Diagrams: 11/23/16 05:27 11/23/16 05:27 Other Lab Results: Abnormal Lab Results 11/21/16 11/21/16 11/21/16 15:21 15:30 15:30 RBC Hgb Hct 36.1 % L % (37.0-47.0) MPV 7.3 fL L fL (7.9-10.8) Neut # 8.9 10^3/uL H 10^3/uL (1.5-6.6) Lymph # 0.9 10^3/uL L 10^3/uL (1.5-3.5) ESR Potassium 3.4 mmol/L L mmol/L (3.5-5.0) Glucose 115 mg/dL H mg/dL (70-100) Calcium Alkaline Phosphatase Total Protein Albumin Albumin/Globulin Ratio Lipase 14 U/L L U/L (22-51) Ur Specific [place] >=1.030 H (1.002-1.030) Urine Protein 100 mg/dL H mg/dL (NEGATIVE) Urine Ketones 15 mg/dL H mg/dL (NEGATIVE) Urine Occult Blood LARGE H (NEGATIVE) 11/21/16 11/22/16 11/22/16 15:30 05:40 05:40 RBC 4.05 10^6/uL L 10^6/uL (4.20-5.40) Hgb 11.9 g/dL L g/dL (12.0-16.0) Hct 35.4 % L % (37.0-47.0) MPV 7.1 fL L fL (7.9-10.8) Neut # Lymph # 0.6 10^3/uL L 10^3/uL (1.5-3.5) ESR 33 mm/Hr H mm/Hr (0-20) Potassium Glucose 164 mg/dL H mg/dL (70-100) Calcium Alkaline Phosphatase Total Protein Albumin Albumin/Globulin Ratio 0.9 L (1.0-2.2) Lipase Ur Specific [place] Urine Protein Urine Ketones Urine Occult Blood 11/23/16 11/23/16 05:27 05:27 RBC 4.00 10^6/uL L 10^6/uL (4.20-5.40) Hgb 11.6 g/dL L g/dL (12.0-16.0) Hct 35.3 % L % (37.0-47.0) MPV 7.7 fL L fL (7.9-10.8) Neut # Lymph # ESR Potassium Glucose 111 mg/dL H mg/dL (70-100) Calcium 8.4 mg/dL L mg/dL (8.5-10.3) Alkaline Phosphatase 38 IU/L L IU/L (42-121) Total Protein 6.1 g/dL L g/dL (6.7-8.2) Albumin 3.1 g/dL L g/dL (3.2-5.5) Albumin/Globulin Ratio Lipase Ur Specific [place] Urine Protein Urine Ketones Urine Occult Blood - DIAGNOSTIC IMAGING Diagnostic Imaging Results: Final report reviewed Diagnostic Imaging Results Comments: CT of abdomen and pelvis showing mild colitis Time spent with patient for discharge assessment and education was 45 minutes - FOLLOW UP Follow Up: Please see your primary care provider within 1 week."
[2016-11-23] MEDS ORDERED: CIPROFLOXACIN 400 MG/200 ML 200 ML IV SCH (14:00)
[2016-11-23] MEDS: SACCHAROMYCES BOULARDII 250 MG CAPSULE PO SCH ×2 (14:06→17:24)
[2016-11-23 17:41] VITALS: BP 141/83
[2016-11-23] MEDS ORDERED: CIPROFLOXACIN 250 MG TABLET PO SCH (18:00)
== END 2016-11-23 18:45 | disposition home or self-care (01) | DRG 372 ==
LOC: ED 14:24 → MS 19:25 → OBS 11-22 08:27 → OBSVTOIN 11-22 14:34 → MS2 11-22 16:22
PROVIDERS: ADMIT Internal Medicine; ATTEND Nurse Practitioner
DX: A04.5 Campylobacter enteritis (principal); N17.9 Acute kidney failure, unspecified; T40.7X1A Poisoning by cannabis (derivatives), accidental (unintentional), initial encounter; E86.0 Dehydration; E87.5 Hyperkalemia; A09 Infectious gastroenteritis and colitis, unspecified; E66.9 Obesity, unspecified; Z68.35 Body mass index [BMI] 35.0-35.9, adult; F12.10 Cannabis abuse, uncomplicated; Z87.898 Personal history of other specified conditions; R31.9 Hematuria, unspecified; N91.1 Secondary amenorrhea; T45.1X5S Adverse effect of antineoplastic and immunosuppressive drugs, sequela; I10 Essential (primary) hypertension; J45.909 Unspecified asthma, uncomplicated; K21.9 Gastro-esophageal reflux disease without esophagitis; Z85.3 Personal history of malignant neoplasm of breast; Z87.891 Personal history of nicotine dependence; Z79.51 Long term (current) use of inhaled steroids; Z79.82 Long term (current) use of aspirin; Z71.3 Dietary counseling and surveillance
CPT/HCPCS: 36415; 74177; 80053; 81001; 81003; 81025; 83690; 83735; 85025; 85651; 87045; 87046; 87086; 87493; 96361; 96365; 96366; 96367; 96372; 96375; 96376; 99284

== ENCOUNTER 2016-12-27 12:51 | Outpatient (CLI) | payer MEDICAID ==
--- NOTE | 2016-12-27 14:13 | XRAY Report ---
THREE VIEW BILATERAL FEET: 12/27/2016 CLINICAL INDICATION: Pain. FINDINGS: AP, lateral, and oblique views of the bilateral feet demonstrate no evidence of fracture o r dislocation. The joint spaces are preserved. No radiopaque foreign body is seen in the soft tissues . IMPRESSION: NORMAL BILATERAL FEET. JOB #: [id number] EXT JOB #:[id number]
== END 2016-12-27 12:52 | disposition home or self-care (01) ==
LOC: DI 12:51
PROVIDERS: ATTEND Family Medicine
DX: M79.673 Pain in unspecified foot (principal)

== ENCOUNTER 2017-02-15 13:23 | Outpatient (CLI) | payer MEDICAID ==
--- NOTE | 2017-02-16 16:31 | Mammography Report ---
DIGITAL DIAGNOSTIC LEFT MAMMOGRAM: 02/15/2017 CLINICAL INDICATION: Six-month followup status post lumpectomy with chemoradiation. COMPARISON: 08/18/2016, 03/01/2016, 03/13/2015. TECHNIQUE: Left CC, MLO, true lateral and spot magnification views. FINDINGS: The left breast demonstrates fatty replacement. Postoperative and post -treatment changes in the left upper outer posterior breast are stable. No suspicious masses, clustered microcalcifications, or regions of architectural distortion are identified. IMPRESSION: PROBABLE BENIGN POSTOPERATIVE AND POST-TREATMENT CHANGES. RECOMMENDATION: DIAGNOSTIC BILATERAL MAMMOGRAM IN SIX MONTHS. BIRADS CATEGORY: 3, PROBABLE BENIGN FINDINGS. STANDARD QUALIFYING STATEMENTS 1. This examination was reviewed with the aid of Computed-Aided Detection (CAD). 2. A negative or benign imaging report should not delay biopsy if clinically suspicious findings are present. Consider surgical consultation if warranted. More than 5% of cancers are not identified by imaging. 3. Dense breasts may obscure an underlying neoplasm. MTDD
== END 2017-02-15 13:24 | disposition home or self-care (01) ==
LOC: DI 13:23
PROVIDERS: ATTEND Internal Medicine Hematology & Oncology
DX: C50.412 Malignant neoplasm of upper-outer quadrant of left female breast (principal)

== ENCOUNTER 2017-06-14 08:22 | Outpatient (CLI) | payer MEDICAID ==
--- NOTE | 2017-06-14 17:32 | XRAY Report ---
TWO VIEW CHEST: 06/14/2017 CLINICAL INDICATION: Dyspnea, left breast cancer. FINDINGS: Frontal and lateral views of the chest demonstrate a normal cardiac silhouette. The lungs are clear. No effusion or pneumothorax is present. IMPRESSION: NORMAL CHEST, UNCHANGED. TD: 06/14/2017 17:31
== END 2017-06-14 08:23 | disposition home or self-care (01) ==
LOC: DI 08:22
PROVIDERS: ATTEND Internal Medicine Hematology & Oncology
DX: R06.00 Dyspnea, unspecified (principal); Z85.3 Personal history of malignant neoplasm of breast; I51.7 Cardiomegaly
CPT/HCPCS: 71046; 93306

== ENCOUNTER 2017-08-08 09:01 | Outpatient (CLI) | payer MEDICAID | END 2017-08-08 09:02 | disposition critical access hospital (66) | LOC: EMS 09:01 | PROVIDERS: ATTEND Surgery | DX: R42 Dizziness and giddiness (principal); R55 Syncope and collapse | CPT/HCPCS: A0425; A0429 ==

== ENCOUNTER 2017-08-08 09:09 | Emergency (ER) | payer MEDICAID ==
[2017-08-08] MEDS ORDERED: SODIUM CHLORIDE 0.9% 1,000 ML IV ONE (11:05)
--- NOTE | 2017-08-08 11:07 | ED Physician Documentation ---
PD HPI SYNCOPE - Stated complaint Stated Complaint: NEAR SYNCOPE - Chief complaint Chief Complaint: Neuro - History obtained from History obtained from: Patient, EMS - History of Present Illness Witnessed: Unwitnessed Timing - onset: Today Duration: Minutes Preceding symptoms: Vision changes, Diaphoresis, Light headed, Generalized weakness Associated symptoms: Vision changes, Diaphoresis Contributing factors: Other (recent [address] trip) Similar symptoms before: Diagnosis (hot flashes) Recently seen: Not recently seen - Additional information Additional information: 47-year-old female is returned from a [address] trip to [place] where she had been staying for about 5 days. She was returning a rental car when she began to feel lightheaded and dizzy felt that she was going to pass out and pulled over and called 911 and was brought to the hospital. She states she did not have syncope. She felt that she was getting ready to have a hot flash but these symptoms were much worse than she usually has. She now is feeling about back to normal. She has had a slight cough associated with some pain in her ears and she denies any urinary symptoms. She has had a urinary tract infection about 6 weeks ago. Review of Systems Constitutional: reports: Chills, Sweats. denies: Fever Eyes: denies: Decreased vision Ears: reports: Ear pain Nose: reports: Congestion. denies: Rhinorrhea / runny nose Throat: denies: Sore throat Cardiac: denies: Chest pain / pressure, Palpitations Respiratory: reports: Cough. denies: Dyspnea GI: reports: Nausea, Diarrhea. denies: Abdominal Pain : denies: Dysuria, Frequency Skin: denies: Rash Musculoskeletal: denies: Neck pain, Back pain, Extremity pain Neurologic: denies: Generalized weakness, Focal weakness, Numbness PD PAST MEDICAL HISTORY - Past Medical History Past Medical History: Yes Cardiovascular: Hypertension Respiratory: Asthma Neuro: Peripheral neuropathy Endocrine/Autoimmune: None GI: None COMMUNITY ARTIST: Breast cancer : None HEENT: None Psych: None Musculoskeletal: Osteoarthritis, Chronic back pain Derm: None - Past Surgical History Past Surgical History: Yes General: Appendectomy, Other /COMMUNITY ARTIST: Other - Present Medications Home Medications: Ambulatory Orders Medication Instructions Recorded Confirmed Albuterol Sulfate [Proventil Hfa 1 puffs IH Q6HR PRN 12/29/15 06/06/17 Inhaler] Hydrochlorothiazide 12.5 mg PO DAILY 12/29/15 06/06/17 Omeprazole 1 cap PO DAILY 12/29/15 06/06/17 Aspirin [Adult Low Dose Aspirin EC] 81 mg PO DAILY 06/28/16 06/06/17 Anastrozole 1 tab PO DAILY 06/06/17 06/06/17 Azithromycin [Zithromax] 250 mg PO DAILY #6 tablet 08/08/17 - Allergies Allergies/Adverse Reactions: Allergies Allergy/AdvReac Type Severity Reaction Status Date / Time No Known Drug Allergies Allergy Verified 10/28/16 17:25 - Social History Does the pt smoke?: No Smoking Status: Never smoker Does the pt drink ETOH?: No Does the pt have substance abuse?: No - Immunizations Immunizations are current?: Yes - POLST Patient has POLST: No PD ED PE NORMAL - Vitals Vital signs reviewed: Yes (tachy and hypertensive ) - General General: Alert and oriented X 3, No acute distress, Well developed/nourished, Other (cries easily appears anxious about calling 911. ) - HEENT HEENT: Atraumatic, PERRL, EOMI, Other (There is inflamation in the attic on the left and mild generalized inflamation on the right TM. mucous membranes are dry. ) - Neck Neck: Supple, no meningeal sign, No bony TTP - Cardiac Cardiac: No murmur, Other (tachy to 110) - Respiratory Respiratory: No respiratory distress, Clear bilaterally - Abdomen Abdomen: Soft, Non tender - Back Back: No CVA TTP, No spinal TTP - Derm Derm: Normal color, Warm and dry, No rash - Extremities Extremities: No deformity, No edema - Neuro Neuro: No motor deficit, No sensory deficit Eye Opening: Spontaneous Motor: Obeys Commands Verbal: Oriented GCS Score: 15 - Psych Psych: Normal mood, Normal affect Results - Vitals Vitals: Vital Signs - 24 hr 08/08/17 08/08/17 08/08/17 09:06 12:21 13:30 Temperature 37.0 C Heart Rate 112 H 80 80 Respiratory 18 12 16 Rate Blood Pressure 152/117 H 177/98 H 136/93 H O2 Saturation 97 100 99 08/08/17 14:37 Temperature Heart Rate 76 Respiratory 16 Rate Blood Pressure 153/89 H O2 Saturation 100 Oxygen O2 Source Room air - Labs Labs: Laboratory Tests 08/08/17 08/08/1708/08/18 12:10 12:10 12:10 WBC 10.4 RBC 4.71 Hgb 13.9 Hct 40.4 MCV 85.8 MCH 29.5 MCHC 34.3 RDW 13.3 Plt Count 296 MPV 7.2 L Neut # 7.2 H Lymph # 2.4 [place] # 0.4 Eos # 0.2 Baso # 0.1 Absolute Nucleated RBC 0.00 Nucleated RBC % 0.0 D-Dimer Sodium 135 Potassium 3.6 Chloride 101 Carbon Dioxide 25 Anion Gap 9.0 BUN 16 Creatinine 0.8 Estimated GFR (MDRD) 76 L Glucose 97 Calcium 9.3 Total Bilirubin 0.4 AST 27 ALT 30 Alkaline Phosphatase 55 Troponin I < 0.04 Total Protein 7.8 Albumin 4.5 Globulin 3.3 Albumin/Globulin Ratio 1.4 Lipase 29 Urine Color Urine Clarity Urine pH Ur Specific [place] Urine Protein Urine Glucose (UA) Urine Ketones Urine Occult Blood Urine Nitrite Urine Bilirubin Urine Urobilinogen Ur Leukocyte Esterase Ur Microscopic Review Urine Culture Comments 08/08/17 08/08/17 12:10 12:45 WBC RBC Hgb Hct MCV MCH MCHC RDW Plt Count MPV Neut # Lymph # [place] # Eos # Baso # Absolute Nucleated RBC Nucleated RBC % D-Dimer < 200.0 L Sodium Potassium Chloride Carbon Dioxide Anion Gap BUN Creatinine Estimated GFR (MDRD) Glucose Calcium Total Bilirubin AST ALT Alkaline Phosphatase Troponin I Total Protein Albumin Globulin Albumin/Globulin Ratio Lipase Urine Color YELLOW Urine Clarity CLEAR Urine pH 6.0 Ur Specific [place] 1.020 Urine Protein NEGATIVE Urine Glucose (UA) NEGATIVE Urine Ketones NEGATIVE Urine Occult Blood TRACE-INTA Urine Nitrite NEGATIVE Urine Bilirubin NEGATIVE Urine Urobilinogen 0.2 (NORMAL) Ur Leukocyte Esterase NEGATIVE Ur Microscopic Review NOT INDICATED Urine Culture Comments NOT INDICATED Procedures - IVC sono (time) 1100 Bedside IVC sono: IVC measures (cm) (0.98), IVC collapsed c insp (cm) (complete) , Dehydration (est 1.5 liters) 1430 Bedside IVC sono: IVC measures (cm) (1.38), Dehydration PD MEDICAL DECISION MAKING - ED course Complexity details: considered differential, d/w patient ED course: 47-year-old female with a recent to a road trip is developed near syncope today while driving. She is a risk for urinary tract infection and for pulmonary embolism. Here in the emergency department she is examined and found to have otitis. She is found to be dehydrated on interrogation the inferior vena cava. She is administered saline and a workup was ensued. The work up is negative and she improves with hydration. She will be treated for OM as well. Departure - Departure Disposition: 01 Home, Self Care Clinical Impression: Dehydration Otitis media Qualifiers: Otitis media type: suppurative Chronicity: acute Laterality: bilateral Recurrence: not specified as recurrent Spontaneous tympanic membrane rupture: without spontaneous rupture Qualified Code(s): H66.003 - Acute suppurative otitis media without spontaneous rupture of ear drum, bilateral Condition: Stable Instructions: ED Dehydration, ED Otitis Media Acute Adult Follow-Up: Azam Roy MD [Primary Care Provider] - Prescriptions: Azithromycin [Zithromax] 250 mg PO DAILY #6 tablet Discharge Date/Time: 08/08/17 15:10
[2017-08-08 12:16] LABS: BASOPHILS # (AUTO) 0.1 10^3/uL (0.0-0.1); EOSINOPHILS # (AUTO) 0.2 10^3/uL (0.0-0.7); EOSINOPHILS % (AUTO) 1.8 %; HGB - HEMOGLOBIN 13.9 g/dL (12.0-16.0); LYMPHOCYTES # (AUTO) 2.4 10^3/uL (1.5-3.5); LYMPHOCYTES % (AUTO) 23.5 %; MEAN CORPUSCULAR HEMOGLOBIN 29.5 pg (27.0-31.0); MEAN CORPUSCULAR HGB CONC 34.3 g/dL (32.0-36.0); MEAN CORPUSCULAR VOLUME 85.8 fL (81.0-99.0); MEAN PLATELET VOLUME 7.2 fL (7.9-10.8); MONOCYTES # (AUTO) 0.4 10^3/uL (0.0-1.0); MONOCYTES % (AUTO) 4.2 %; NEUTROPHILS # (AUTO) 7.2 10^3/uL (1.5-6.6); NEUTROPHILS % (AUTO) 69.5 %; PLT - PLATELET COUNT 296 10^3/uL (130-450); RED BLOOD COUNT 4.71 10^6/uL (4.20-5.40); RED CELL DISTRIBUTION WIDTH 13.3 % (12.0-15.0); WHITE BLOOD COUNT 10.4 x10^3/uL (4.8-10.8)
[2017-08-08 12:29] LABS: ALBUMIN 4.5 g/dL (3.2-5.5); ALBUMIN/GLOBULIN RATIO 1.4 (1.0-2.2); BILIRUBIN,TOTAL 0.4 mg/dL (0.2-1.0); CALCIUM 9.3 mg/dL (8.5-10.3); CREATININE 0.8 mg/dL (0.4-1.0); TOTAL PROTEIN 7.8 g/dL (6.7-8.2)
[2017-08-08 13:09] LABS: BILIRUBIN,URINE NEGATIVE (NEGATIVE); GLUCOSE, URINE (UA) NEGATIVE (NEGATIVE); KETONES,URINE (UA) NEGATIVE (NEGATIVE); LEUKOCYTE ESTERASE, URINE NEGATIVE (NEGATIVE); NITRITE,URINE NEGATIVE (NEGATIVE); OCCULT BLOOD,URINE TRACE-INTA (NEGATIVE); PROTEIN,URINE NEGATIVE (NEGATIVE); UROBILINOGEN,URINE 0.2 (NORMAL) E.U./dL (NORMAL)
[2017-08-08 13:12] LABS: CLARITY,URINE CLEAR (CLEAR)
[2017-08-08 14:38] VITALS: BP 153/89
== END 2017-08-08 15:10 | disposition home or self-care (01) ==
LOC: EDUNIT# → ED 09:09
DX: E86.0 Dehydration (principal); H66.003 Acute suppurative otitis media without spontaneous rupture of ear drum, bilateral; I10 Essential (primary) hypertension; G62.9 Polyneuropathy, unspecified; M19.90 Unspecified osteoarthritis, unspecified site; Z85.3 Personal history of malignant neoplasm of breast; Z79.82 Long term (current) use of aspirin
CPT/HCPCS: 36415; 80053; 81001; 81003; 83690; 84484; 85025; 85379; 87086; 93005; 96360; 99283; 99284

== ENCOUNTER 2017-08-30 13:21 | Outpatient (CLI) | payer MEDICAID ==
--- NOTE | 2017-08-30 14:52 | Mammography Report ---
DIAGNOSTIC BILATERAL MAMMOGRAM: 08/30/2017 CLINICAL INDICATION: Followup right breast cancer, status post lumpectomy and chemoradiation. COMPARISON: 02/15/2017, 08/18/2016, 03/01/2016, 03/13/2015. TECHNIQUE: Bilateral CC and MLO views, left true lateral, laterally exaggerated craniocaudal, spot magnification views. FINDINGS: The breasts demonstrate fatty replacement bilaterally. Postoperative and post-treatment changes in the left upper outer posterior breast are stable. Coarse and punctate, typically benign calcifications are present. No suspicious masses, clustered microcalcifications, or regions of architectural distortion are identified. IMPRESSION: BENIGN FINDINGS. RECOMMENDATION: Routine annual screening unless otherwise clinically indicated. BIRADS CATEGORY 2 - BENIGN FINDINGS. STANDARD QUALIFYING STATEMENTS: 1. This examination was reviewed with the aid of Computer-Aided Detection (CAD). 2. A negative or benign imaging report should not delay biopsy if clinically suspicious findings are present. Consider surgical consultation if warranted. More than 5% of cancers are not identified by imaging. 3. Dense breasts may obscure an underlying neoplasm. TD: 08/30/2017 14:51
== END 2017-08-30 13:22 | disposition home or self-care (01) ==
LOC: DI 13:21
PROVIDERS: ATTEND Internal Medicine Hematology & Oncology
DX: Z85.3 Personal history of malignant neoplasm of breast (principal)
CPT/HCPCS: 77066

== ENCOUNTER 2017-09-12 09:45 | Emergency (ER) | payer MEDICAID ==
--- NOTE | 2017-09-12 10:59 | ED Physician Documentation ---
PD HPI LOWER EXT INJURY - Stated complaint Stated Complaint: R SIDE BIG TOE LAC - Chief complaint Chief Complaint: Laceration - History obtained from History obtained from: Patient, Family - History of Present Illness PD HPI LOW EXT INJURY LOCATION: Left, Toe (great) Type of injury: Blunt / blow Where injury occurred: Home Timing - onset: Yesterday Timing - duration: Days (1) Timing - details: Abrupt onset, Still present Improved by: Rest, Immobilization Worsened by: Moving, Palpating Associated symptoms: Swelling. No: Weakness, Numbness Contributing factors: No: Anticoagulated Similar symptoms before: Has not had sx before Recently seen: Not recently seen - Additional information Additional information: 47-year-old female was walking up a stairs with her sandals on when she caught the tip of her sandal fell forward and somehow lacerated the bottom of her left great toe. She is able place the skin back directly over the top and hold pressure she has been able to control bleeding she is coming today with persistent pain with ambulation. Review of Systems Constitutional: denies: Fever Throat: denies: Sore throat Respiratory: denies: Cough GI: denies: Vomiting Skin: reports: Laceration (s) Musculoskeletal: reports: Extremity pain, Pain with weight bearing. 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 : None HEENT: None Psych: None Musculoskeletal: Osteoarthritis, Chronic back pain Derm: None - Past Surgical History Past Surgical History: Yes General: Appendectomy, Other /MIGRATORY WORKER: Other - Present Medications Home Medications: Ambulatory Orders Medication Instructions Recorded Confirmed Albuterol Sulfate [Proventil Hfa 1 puffs IH Q6HR PRN 12/29/15 09/05/17 Inhaler] Hydrochlorothiazide 12.5 mg PO DAILY 12/29/15 09/05/17 Omeprazole 1 cap PO DAILY 12/29/15 09/05/17 Aspirin [Adult Low Dose Aspirin EC] 81 mg PO DAILY 06/28/16 09/05/17 Anastrozole 1 tab PO DAILY 06/06/17 09/05/17 oxyCODONE/ACET 5/325 [Percocet 5 1 each PO Q4-6H PRN #12 tablet 09/12/17 mg/325 mg] - Allergies Allergies/Adverse Reactions: Allergies Allergy/AdvReac Type Severity Reaction Status Date / Time No Known Drug Allergies Allergy Verified 09/12/17 10:02 - Social History Does the pt smoke?: No Smoking Status: Never smoker Does the pt drink ETOH?: No Does the pt have substance abuse?: No - Immunizations Immunizations are current?: Yes - POLST Patient has POLST: No PD ED PE NORMAL - Vitals Vital signs reviewed: Yes (hypesrtensive ) - General General: Alert and oriented X 3, No acute distress, Well developed/nourished - HEENT HEENT: Atraumatic, PERRL, EOMI - Neck Neck: Supple, no meningeal sign - Respiratory Respiratory: No respiratory distress - Derm Derm: Normal color, Warm and dry, No rash - Extremities Extremities: No deformity, No edema, Other (There is tenderness to the plantar surface of the right 1st metatarsal. There is a laceration a flap with callus over the ventral surface of the great toe over the distal phlange. The distal n/ v is intact. ) - Neuro Neuro: Alert and oriented X 3, No motor deficit, No sensory deficit, Normal speech Eye Opening: Spontaneous Motor: Obeys Commands Verbal: Oriented GCS Score: 15 - Psych Psych: Normal mood, Normal affect Results - Vitals Vitals: Vital Signs - 24 hr 09/12/17 09:50 Temperature 36.9 C Heart Rate 74 Respiratory 18 Rate Blood Pressure 146/77 H O2 Saturation 98 Oxygen O2 Source Room air - Rads (name of study) right foot Radiology: Prelim report reviewed (Impression: No fracture or bony malalignment. ), EMP read indepedently, See rad report Procedures - Laceration (location) great toe right Length in cm: 3 Wound type: Curved, Flap Neurovascular status: Sensory intact, Motor intact, Vascular intact Anesthesia: Lidocaine 1%, With bicarb Wound Preparation: Hibiclens, Irrigated copiously NS, Debrided extensively, Wound explored, To the base Skin layer closure: Nylon, Interrupted, Size #-0 - enter number (4-0) Other: Patient tolerated well, No complications, Neurovascular intact, Dressing applied, Tetanus booster given Complexity: Simple PD MEDICAL DECISION MAKING - ED course Complexity details: reviewed results, re-evaluated patient, considered differential, d/w patient, d/w family ED course: 47-year-old female with a contusion to the right great toe with a laceration over the toe itself with a large flap is having some trouble bearing weight on the foot. She has pain to the distal first metatarsal. X-rays exam without fracture. The wound is cleaned roughened up and sutured. The patient has crutches at home for ambulation. Departure - Departure Disposition: Home, Self Care Clinical Impression: Laceration of right great toe Qualifiers: Encounter type: initial encounter Damage to nail status: without damage Foreign body presence: without foreign body Qualified Code(s): S91.111A - Laceration without foreign body of right great toe without damage to nail, initial encounter Sprain of foot, right Qualifiers: Encounter type: initial encounter Qualified Code(s): S93.601A - Unspecified sprain of right foot, initial encounter Condition: Stable Instructions: ED Sprain Foot, ED Laceration Ext Sutr Stap Tape Follow-Up: Azam Roy MD [Primary Care Provider] - Prescriptions: oxyCODONE/ACET 5/325 [Percocet 5 mg/325 mg] 1 each PO Q4-6H PRN #12 tablet PRN Reason: Pain
--- NOTE | 2017-09-12 11:35 | XRAY Report ---
EXAM: RIGHT FOOT RADIOGRAPHY EXAM DATE: 09/12/2017 11:16 AM. CLINICAL HISTORY: Distal 1st MT and pharyngeal contusion. Recent fall. COMPARISON: None. TECHNIQUE: 3 views. FINDINGS: Bones: No fracture or bone lesion. Incidental tiny plantar and dorsal calcaneal enthesophytes. Joints: No subluxation. Joint spaces are preserved. Soft Tissues: No significant findings identified. IMPRESSION: 1. No fracture or bony malalignment. [facility] Referring Provider Line: [phone] SITE ID: [id number]
--- NOTE | 2017-09-12 11:35 | XRAY Preliminary Report ---
Exam: XR FOOT 3 VIEW RT IMPRESSION: 1. No fracture or bony malalignment. [facility] SITE ID: [id number]
[2017-09-12] MEDS ORDERED: BUFFERED LIDOCAINE 10 ML SYRINGE SUBQ STA (12:49)
[2017-09-12] MEDS ORDERED: TETANUS/DIPHTHERIA/PERTUSSIS 0.5 ML SYRINGE IM ONE (13:29)
[2017-09-12] MEDS ORDERED: oxyCOD/ACETAMIN 5 MG/325 MG TABLET PO STA (13:39)
[2017-09-12 14:15] VITALS: BP 140/78
== END 2017-09-12 14:13 | disposition home or self-care (01) ==
LOC: ED 09:45
DX: S91.111A Laceration without foreign body of right great toe without damage to nail, initial encounter (principal); S93.601A Unspecified sprain of right foot, initial encounter; W01.198A Fall on same level from slipping, tripping and stumbling with subsequent striking against other object, initial encounter; Y92.009 Unspecified place in unspecified non-institutional (private) residence as the place of occurrence of the external cause; I10 Essential (primary) hypertension; J45.909 Unspecified asthma, uncomplicated; M19.90 Unspecified osteoarthritis, unspecified site; Z85.3 Personal history of malignant neoplasm of breast; Z23 Encounter for immunization
CPT/HCPCS: 12002; 73630; 90471; 90715; 99283; A9270

== ENCOUNTER 2017-09-29 19:31 | Emergency (ER) | payer MEDICAID ==
[2017-09-29 19:37] VITALS: BP 106/73
[2017-09-29] MEDS ORDERED: CIPROFLOXACIN 250 MG TABLET PO STA (19:50)
--- NOTE | 2017-09-29 19:51 | ED Physician Documentation ---
PD HPI LOWER EXT INJURY - Stated complaint Stated Complaint: FOOT INJURY - Chief complaint Chief Complaint: Ext Problem - History obtained from History obtained from: Patient - History of Present Illness PD HPI LOW EXT INJURY LOCATION: Left, Foot Type of injury: Puncture wound (She is up-to-date on tetanus and punctured the bottom of her left foot when stepping on a rake at home just prior to arrival. 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 HEENT: None Psych: None Musculoskeletal: Osteoarthritis, Chronic back pain Derm: None - Past Surgical History Past Surgical History: Yes General: Appendectomy, Other /TUBE DRAWER: Other - Present Medications Home Medications: Ambulatory Orders Medication Instructions Recorded Confirmed Albuterol Sulfate [Proventil Hfa 1 puffs IH Q6HR PRN 12/29/15 09/05/17 Inhaler] Hydrochlorothiazide 12.5 mg PO DAILY 12/29/15 09/05/17 Omeprazole 1 cap PO DAILY 12/29/15 09/05/17 Aspirin [Adult Low Dose Aspirin EC] 81 mg PO DAILY 06/28/16 09/05/17 Anastrozole 1 tab PO DAILY 06/06/17 09/05/17 oxyCODONE/ACET 5/325 [Percocet 5 1 each PO Q4-6H PRN #12 tablet 09/12/17 mg/325 mg] Ciprofloxacin HCl [Cipro] 500 mg PO BID #10 tablet 09/29/17 HYDROcod/ACETAM 5/325 [[place] 5/325] 1 - 2 ea PO Q6H PRN #7 tablet 09/29/17 - Allergies Allergies/Adverse Reactions: Allergies Allergy/AdvReac Type Severity Reaction Status Date / Time No Known Drug Allergies Allergy Verified 09/12/17 10:02 - Social History Does the pt smoke?: No Smoking Status: Never smoker Does the pt drink ETOH?: No Does the pt have substance abuse?: No - Immunizations Immunizations are current?: Yes - POLST Patient has POLST: No PD ED PE NORMAL - Vitals Vital signs reviewed: Yes - General General: Alert and oriented X 3, No acute distress, Other (She is anxious) - Extremities Extremities: Other (There is a single plantar puncture wound near the distal fourth metatarsal, nontender dorsally. Good range of motion. This is all on the left foot.) - Neuro Neuro: Alert and oriented X 3, Normal speech - Psych Psych: Normal mood, Normal affect Results - Vitals Vitals: Vital Signs - 24 hr 09/29/17 19:34 Temperature 37.2 C Heart Rate 95 Respiratory 16 Rate Blood Pressure 106/73 O2 Saturation 97 Oxygen O2 Source Room air - Rads (name of study) 3v L foot Radiology: EMP read contemporaneously (normal) Departure - Departure Disposition: Home, Self Care Clinical Impression: Puncture wound of plantar aspect of foot Qualifiers: Encounter type: initial encounter Laterality: left Qualified Code(s): S91.332A - Puncture wound without foreign body, left foot, initial encounter Condition: Good Record reviewed to determine appropriate education?: Yes Instructions: ED Wound Puncture General Prescriptions: Ciprofloxacin HCl [Cipro] 500 mg PO BID #10 tablet HYDROcod/ACETAM 5/325 [[place] 5/325] 1 - 2 ea PO Q6H PRN #7 tablet PRN Reason: Pain Comments: Call your doctor to arrange a follow-up appointment, make the next available appointment. In the interim, return anytime if worse or if new symptoms develop. Discharge Date/Time: 09/29/17 20:22
[2017-09-29] MEDS ORDERED: HYDROcod/ACETAM 5/325 MG TABLET PO STA (19:52)
--- NOTE | 2017-09-29 20:30 | XRAY Preliminary Report ---
Exam: XR FOOT 3 VIEW LT IMPRESSION: No acute bony abnormality nor radiopaque foreign body. [facility] SITE ID: [id number]
--- NOTE | 2017-09-29 20:33 | XRAY Report ---
EXAM: LEFT FOOT RADIOGRAPHY. EXAM DATE: 09/29/2017 08:07 PM. CLINICAL HISTORY: Puncture wound plantar surface of the foot in the area of the fourth and fifth meta tarsals (stepping on a rake). COMPARISON: None. TECHNIQUE: 3 views. FINDINGS: Bones: Normal. No fractures or bone lesions. Joints: Mild degenerative changes first MTP joint without subluxation. Soft Tissues: Moderate plantar forefoot edema. No radiopaque foreign body. IMPRESSION: No acute bony abnormality nor radiopaque foreign body. [facility] Referring Provider Line: [phone] SITE ID: [id number]
== END 2017-09-29 20:22 | disposition home or self-care (01) ==
LOC: ED 19:31
DX: S91.332A Puncture wound without foreign body, left foot, initial encounter (principal); W27.1XXA Contact with garden tool, initial encounter; Y92.009 Unspecified place in unspecified non-institutional (private) residence as the place of occurrence of the external cause; I10 Essential (primary) hypertension; J45.909 Unspecified asthma, uncomplicated; M19.90 Unspecified osteoarthritis, unspecified site; Z85.3 Personal history of malignant neoplasm of breast; Z79.82 Long term (current) use of aspirin
CPT/HCPCS: 73630; 99283; A9270

== ENCOUNTER 2018-02-15 08:00 | Outpatient (CLI) | payer MEDICAID ==
[2018-02-15 18:58] LABS: BILIRUBIN,URINE NEGATIVE (NEGATIVE); GLUCOSE, URINE (UA) NEGATIVE (NEGATIVE); KETONES,URINE (UA) NEGATIVE (NEGATIVE); LEUKOCYTE ESTERASE, URINE TRACE (NEGATIVE); NITRITE,URINE NEGATIVE (NEGATIVE); OCCULT BLOOD,URINE TRACE-LYSE (NEGATIVE); PROTEIN,URINE NEGATIVE (NEGATIVE); UROBILINOGEN,URINE 0.2 (NORMAL) E.U./dL (NORMAL)
[2018-02-15 19:26] LABS: BACTERIA,URINE None Seen /HPF (None Seen); CLARITY,URINE CLEAR (CLEAR); RBC,URINE 0-5 /HPF (0-5); SQUAMOUS EPITHELIAL CELL,UR FEW Squamous (<= Few)
== END 2018-02-15 08:01 ==
LOC: LAB.N 08:00
PROVIDERS: ATTEND Nurse Practitioner
DX: N39.0 Urinary tract infection, site not specified (principal)
CPT/HCPCS: 81001; 87086

== ENCOUNTER 2018-06-08 07:58 | Emergency (ER) | payer MEDICAID ==
[2018-06-08 08:08] VITALS: BP 144/96
[2018-06-08] MEDS ORDERED: DEXAMETHASONE 10 MG/ML VIAL PO STA (09:22)
--- NOTE | 2018-06-08 09:25 | ED Physician Documentation ---
PD HPI BACK PAIN - Stated complaint Stated Complaint: GLF/BACK PX - Chief complaint Chief Complaint: Back Pain - History obtained from History obtained from: Patient - History of Present Illness Timing - onset: Last night Timing - duration: Hours Timing - details: Abrupt onset, Still present Location: Lower, Right Quality: Pain, Spasm, Sharp, Similar to prior episodes Associated symptoms: No: Fever, Weakness, Numbness, Incontinent of urine, Unable to urinate, Hematuria, Incontinent of stool Improves with: Rest, Position Worsened by: Movement Similar symptoms before: Diagnosis (sciatica) Recently seen: Not recently seen - Additional information Additional information: 47-year-old female with a history of breast cancer has developed acute sciatica on the right side after her dog pulled on the leash and she was on the snow. She states that she did a dance and bhumi her back and did not fall. She does not have any direct contusion just the jarring positioning. She denies any saddle anesthesia or problems with her bowel or bladder. Review of Systems Constitutional: denies: Fever, Chills Eyes: denies: Decreased vision Ears: denies: Ear pain Nose: denies: Congestion Throat: denies: Sore throat Respiratory: denies: Cough GI: denies: Vomiting Skin: denies: Rash Musculoskeletal: reports: Back pain, Extremity pain. 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 HEENT: None Psych: None Musculoskeletal: Osteoarthritis, Chronic back pain Derm: None - Past Surgical History Past Surgical History: Yes General: Appendectomy, Other /SUPERVISOR SAWMILL: Other - Present Medications Home Medications: Ambulatory Orders Medication Instructions Recorded Confirmed Albuterol Sulfate [Proventil Hfa 1 puffs IH Q6HR PRN 12/29/15 03/06/18 Inhaler] Hydrochlorothiazide 12.5 mg PO DAILY 12/29/15 03/06/18 Aspirin [Adult Low Dose Aspirin EC] 81 mg PO DAILY 06/28/16 03/06/18 Anastrozole 1 tab PO DAILY 06/06/17 03/06/18 Cyclobenzaprine [Flexeril] 10 mg PO TID PRN #20 tablet 06/08/18 Hydrocodone/Acetaminophen 1 - 2 each PO Q6H PRN #14 tablet 06/08/18 [Hydrocodon-Acetaminophen 5-325] - Allergies Allergies/Adverse Reactions: Allergies Allergy/AdvReac Type Severity Reaction Status Date / Time No Known Drug Allergies Allergy Verified 06/08/18 08:08 - Social History Does the pt smoke?: No Smoking Status: Never smoker Does the pt drink ETOH?: No Does the pt have substance abuse?: No - Immunizations Immunizations are current?: Yes - POLST Patient has POLST: No PD ED PE NORMAL - Vitals Vital signs reviewed: Yes (hypertensive ) - General General: Alert and oriented X 3, No acute distress, Well developed/nourished - HEENT HEENT: Atraumatic, PERRL, EOMI - Respiratory Respiratory: No respiratory distress - Back Back: No CVA TTP, Other (There is tenderness to the paraspinous muscles on the right side low and extending into the sciatic notch. ) - Derm Derm: Normal color, Warm and dry - Extremities Extremities: No deformity, No edema - Psych Psych: Normal mood, Normal affect Results - Vitals Vitals: Vital Signs - 24 hr 06/08/18 08:05 Temperature 35.6 C L Heart Rate 79 Respiratory 20 Rate Blood Pressure 144/96 H O2 Saturation 98 Oxygen O2 Source Room air PD MEDICAL DECISION MAKING - ED course Complexity details: reviewed old records, reviewed results, re-evaluated patient, considered differential, d/w patient ED course: 47-year-old female with acute sciatica related to jarring injury to her back in the snow has right-sided symptoms and she is administered dexamethasone 10 mg orally and 60 mg of Toradol IM. Departure - Departure Disposition: 01 Home, Self Care Clinical Impression: Sciatica Qualifiers: Laterality: right Qualified Code(s): M54.31 - Sciatica, right side Condition: Stable Instructions: ED Sciatica Follow-Up: Fuentes Martinez PA-C [Primary Care Provider] - Prescriptions: Cyclobenzaprine [Flexeril] 10 mg PO TID PRN #20 tablet PRN Reason: Spasms Hydrocodone/Acetaminophen [Hydrocodon-Acetaminophen 5-325] 1 - 2 each PO Q6H PRN #14 tablet PRN Reason: pain Forms: Activity restrictions
[2018-06-08] MEDS ORDERED: KETOROLAC 60 MG/2 ML VIAL IM STA (09:26)
[2018-06-08] MEDS ORDERED: CHERRY SYRUP 10 ML UDC PO ONE (09:29)
== END 2018-06-08 09:46 | disposition home or self-care (01) ==
LOC: ED 07:58
DX: M54.31 Sciatica, right side (principal); S39.92XA Unspecified injury of lower back, initial encounter; X50.1XXA Overexertion from prolonged static or awkward postures, initial encounter; Y93.K1 Activity, walking an animal; I10 Essential (primary) hypertension; Z85.3 Personal history of malignant neoplasm of breast; Z79.82 Long term (current) use of aspirin
CPT/HCPCS: 96372; 99283; A9270

== ENCOUNTER 2018-08-08 08:00 | Outpatient (CLI) | payer MEDICAID ==
[2018-08-08 13:08] LABS: CALCIUM 10.1 mg/dL (8.5-10.3); CREATININE 0.6 mg/dL (0.4-1.0); URIC ACID 6.6 mg/dL (2.6-7.2)
== END 2018-08-08 23:59 | disposition home or self-care (01) ==
LOC: LAB.N 08:00
PROVIDERS: ATTEND Physician Assistant Medical
DX: R10.9 Unspecified abdominal pain (principal)
CPT/HCPCS: 36415; 80048; 84550

== ENCOUNTER 2018-09-27 10:00 | Outpatient (CLI) | payer MEDICAID ==
--- NOTE | 2018-09-27 17:09 | Nuclear Medicine Report ---
Reason: R SIDE RIB PAIN, L BREAST CANCER Procedure Date: 09/27/2018 Accession Number: [id number] / [id number] Procedure: NM - Bone Whole Body CPT Code: FULL RESULT: EXAM: BONE SCAN EXAM DATE: 09/27/2018 03:41 PM. CLINICAL HISTORY: R SIDE RIB PAIN, L BREAST CANCER. COMPARISON: No other relevant comparison imaging currently available for review. Right foot radiograph series 09/29/2017, left foot radiograph series 09/12/2017, 09/27/2018. TECHNIQUE: Following the intravenous administration of 32.3 mCi of technetium 99m MDP and an appropriate delay, a whole-body scan was performed in anterior and posterior projections. Site-specific spot views of the region of interest were obtained in various projections. FINDINGS: Normal renal radiotracer uptake and bladder activity. Normal soft tissue activity. Overall normal osseous uptake. No suspicious focal uptake. Asymmetric mild to moderate uptake at the left midfoot and left first MTP joint, may be degenerative. IMPRESSION: 1. No convincing scintigraphic evidence of osseous metastasis. [facility]
== END 2018-09-27 10:01 | disposition home or self-care (01) ==
LOC: DI 10:00
PROVIDERS: ATTEND Internal Medicine Hematology & Oncology
DX: C50.912 Malignant neoplasm of unspecified site of left female breast (principal); M19.072 Primary osteoarthritis, left ankle and foot
CPT/HCPCS: 78306

== ENCOUNTER 2018-09-27 14:46 | Outpatient (CLI) | payer MEDICAID ==
--- NOTE | 2018-09-28 14:51 | XRAY Report ---
Reason: L FOOT PAIN, OPEN WOUND Procedure Date: 09/27/2018 Accession Number: [id number] / [id number] Procedure: XR - Foot 3 View LT CPT Code: FULL RESULT: EXAM: LEFT FOOT RADIOGRAPHY EXAM DATE: 09/27/2018 02:58 PM. CLINICAL HISTORY: L FOOT PAIN, OPEN WOUND. COMPARISON: FOOT 3 VIEW RT 09/29/2017 7:52 PM. TECHNIQUE: 3 views. FINDINGS: Bones: Normal. No fractures or bone lesions. Joints: Mild degenerative changes at the first metatarsal phalangeal joint. Findings are similar to the prior examination. Soft Tissues: Normal. No soft tissue swelling. IMPRESSION: Mild degenerative changes at the first metatarsal phalangeal joint. Findings are similar to the prior examination. [facility]
== END 2018-09-27 14:47 | disposition home or self-care (01) ==
LOC: DI 14:46
PROVIDERS: ATTEND Nurse Practitioner Adult Health
DX: M19.072 Primary osteoarthritis, left ankle and foot (principal)

== ENCOUNTER 2018-09-29 10:35 | Emergency (ER) | payer MEDICAID ==
[2018-09-29 10:47] VITALS: BP 135/61
[2018-09-29] MEDS ORDERED: cephALEXin 250 MG CAPSULE PO STA (11:26)
--- NOTE | 2018-09-29 11:30 | ED Physician Documentation ---
PD HPI SKIN - Stated complaint Stated Complaint: LT FOOT RASH/PAIN - Chief complaint Chief Complaint: Wound - History obtained from History obtained from: Patient - History of Present Illness Timing - onset: How many years ago, Other (worsening redness, swelling pain to medial L foot) Severity Comments: moderate, including heel and medial aspect of L foot Location: LLE Quality / character: Painful, Discolored, Swelling Improved by: Other (nothing) Worsened by (comment): COMMENT (weight bearing or touching the area) Associated symptoms: No: Fever, Myalgias, Joint pain Contributing factors: No: Exposed to medication, Exposed to soap / lotion, Exposed to Poison francisca/oak, Insect bite /sting Similar symptoms before: No diagnosis, Work up / diagnostics (unclear etiology) Recently seen: Clinic - Treatment prior to arrival Treatment prior to arrival: steroid creams Review of Systems Ten Systems: 10 systems reviewed and negative Constitutional: denies: Fever, Chills Skin: reports: Rash Musculoskeletal: reports: Extremity pain, Extremity swelling, Pain with weight bearing Neurologic: denies: Focal weakness, Numbness Immunocompromised: denies: Immunocompromised PD PAST MEDICAL HISTORY - Past Medical History Past Medical History: Yes Cardiovascular: Hypertension Respiratory: Asthma Endocrine/Autoimmune: None GI: None 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 : 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 HEENT: None Psych: None Musculoskeletal: Osteoarthritis, Chronic back pain Derm: None - Past Surgical History Past Surgical History: Yes General: Appendectomy, Other /GREENHOUSE TRANSPLANTER: Other - Present Medications Home Medications: Ambulatory Orders Medication Instructions Recorded Confirmed RX: Albuterol Sulfate [Proventil 1 puffs IH Q6HR PRN 12/29/15 09/18/18 Hfa Inhaler] RX: Hydrochlorothiazide 12.5 mg PO DAILY 12/29/15 09/18/18 RX: Aspirin [Adult Low Dose 81 mg PO DAILY 06/28/16 09/18/18 Aspirin EC] RX: Anastrozole 1 tab PO DAILY 06/06/17 09/18/18 Cephalexin [Keflex] 500 mg PO Q6H #28 capsule 09/29/18 RX: Mupirocin 1 applic TP BID #10 g 09/29/18 - Allergies Allergies/Adverse Reactions: Allergies Allergy/AdvReac Type Severity Reaction Status Date / Time No Known Drug Allergies Allergy Verified 09/29/18 10:47 - Social History Does the pt smoke?: No Smoking Status: Never smoker Does the pt drink ETOH?: No Does the pt have substance abuse?: No - Immunizations Immunizations are current?: Yes - POLST Patient has POLST: No PD ED PE NORMAL - Vitals Vital signs reviewed: Yes - General General: Alert and oriented X 3 - HEENT HEENT: Atraumatic, Pharynx benign - Neck Neck: Supple, no meningeal sign - Cardiac Cardiac: RRR - Respiratory Respiratory: No respiratory distress - Abdomen Abdomen: Non distended - Female Female : Deferred - Rectal Rectal: Deferred - Derm Derm: Normal color, Warm and dry, No rash, Other (except L medial foot with 1.5cm superficial laceration, and surrounding scaly rash and erythema, warmth and mild tenderness to touch, no fluctuance, about 3x3cm in size) - Extremities Extremities: No deformity, Normal ROM s pain, No calf tenderness / cord, Other (mild tenderness to palpation of L medial foot and L heel. No deformity, no bony tenderness.) Results - Vitals Vitals: Vital Signs - 24 hr 09/29/18 10:45 Temperature 36.9 C Heart Rate 73 Respiratory 16 Rate Blood Pressure 135/61 H O2 Saturation 98 Oxygen O2 Source Room air Procedures - General procedure General procedure: Bedside US by me shows some subcutaneous swelling but no focal abscess, no cobblestoning. PD MEDICAL DECISION MAKING - ED course Complexity details: considered differential, d/w patient ED course: 48 y/o F with ongoing L medial foot pain which is chronic associated with a rash, with acute worsening redness and mild swelling consistent with possible cellulitis. No abscess seen on US. Pt has tried various topical steroids and antifungals. Will give trial of antibiotics and pt to f/u with PCP for recheck. Departure - Departure Disposition: 01 Home, Self Care Clinical Impression: Cellulitis Condition: Stable Record reviewed to determine appropriate education?: Yes Instructions: Cellulitis Dc Follow-Up: Fuentes Martinez PA-C [Primary Care Provider] - Prescriptions: Cephalexin [Keflex] 500 mg PO Q6H #28 capsule RX: Mupirocin 1 applic TP BID #10 g Discharge Date/Time: 09/29/18 11:37
== END 2018-09-29 11:37 | disposition home or self-care (01) ==
LOC: ED 10:35
DX: L03.116 Cellulitis of left lower limb (principal); S91.312A Laceration without foreign body, left foot, initial encounter; X58.XXXA Exposure to other specified factors, initial encounter; I10 Essential (primary) hypertension; Z79.82 Long term (current) use of aspirin
CPT/HCPCS: 99283; A9270

== ENCOUNTER 2018-11-17 10:18 | Outpatient (CLI) | payer MEDICAID ==
--- NOTE | 2018-11-17 13:01 | Mammography Report ---
Reason: LT BREAST CANCER Procedure Date: 11/17/2018 Accession Number: [id number] / [id number] Procedure: BERNABE - Diagnostic Dig Bilat CPT Code: FULL RESULT: EXAM: Diagnostic Dig Bilat DATE: 11/17/2018 11:17 AM CLINICAL HISTORY: Diagnostic examination. Personal history of left breast cancer status post lumpectomy in 2016. TECHNIQUE: (B) - Bilateral CC and MLO views were obtained. Left laterally exaggerated CC view and a left ML view are obtained. COMPARISON: 08/30/2017 through 03/01/2016. PARENCHYMAL PATTERN: (F) - The breast(s) demonstrate(s) diffuse fatty replacement. FINDINGS: Expected interval evolution of posttreatment findings in the left breast, probably benign. There are no suspicious masses, calcifications, or areas of distortion. IMPRESSION: Probably Benign. BI-RADS category 3. RECOMMENDATION: (12MOS) - Recommend 12 month follow-up exam. BI-RADS CATEGORY: (3) - Probably Benign. STANDARD QUALIFYING STATEMENTS: 1. This examination was not reviewed with the aid of Computer-Aided Detection (CAD). 2. A negative or benign imaging report should not preclude biopsy if clinically suspicious findings are present. 3. Dense breasts may obscure an underlying neoplasm. 4. This examination was reviewed with the aid of 3D breast imaging (tomosynthesis).
== END 2018-11-17 10:19 | disposition home or self-care (01) ==
LOC: DI 10:18
PROVIDERS: ATTEND Internal Medicine Hematology & Oncology
DX: C50.912 Malignant neoplasm of unspecified site of left female breast (principal); N64.4 Mastodynia
CPT/HCPCS: 77066

== ENCOUNTER 2019-01-11 10:54 | Emergency (ER) | payer MEDICAID ==
[2019-01-11 10:59] VITALS: BP 144/92
[2019-01-11] MEDS ORDERED: CHERRY SYRUP 10 ML UDC PO ONE (11:10)
[2019-01-11] MEDS ORDERED: DEXAMETHASONE 10 MG/ML VIAL PO STA (11:10)
--- NOTE | 2019-01-11 12:01 | XRAY Report ---
Reason: lateral pain worsening over prox fib Procedure Date: 01/11/2019 Accession Number: [id number] / [id number] Procedure: XR - Knee 4 View LT CPT Code: FULL RESULT: EXAM: LEFT KNEE RADIOGRAPHY EXAM DATE: 01/11/2019 11:44 AM. CLINICAL HISTORY: Lateral pain worsening over prox fib. COMPARISON: None. TECHNIQUE: 4 views. FINDINGS: Bones: Normal. No fractures or bone lesions. Joints: Normal. No effusion. No subluxations. Soft Tissues: Normal. No soft tissue swelling. IMPRESSION: Normal knee radiography. [facility]
--- NOTE | 2019-01-11 12:08 | ED Physician Documentation ---
PD HPI LOWER EXT INJURY - Stated complaint Stated Complaint: KNEE PX - Chief complaint Chief Complaint: Ext Problem - History obtained from History obtained from: Patient, Family - History of Present Illness PD HPI LOW EXT INJURY LOCATION: Left, Knee Type of injury: Twist Where injury occurred: Home Timing - onset: How many weeks ago (2) Timing - duration: Weeks (2) Timing - details: Gradual onset, Still present Improved by: Rest, Immobilization Worsened by: Moving, Palpating Associated symptoms: No: Weakness, Numbness, Tingling, Swelling Contributing factors: No: Anticoagulated Similar symptoms before: Has not had sx before Recently seen: Not recently seen - Additional information Additional information: 48 y/o female with a 2 month history of pain in the lateral aspect of the left knee that was mild initially and about 2 weeks ago she twisted her knee and the pain is much worse. The pain is over the lateral joint line and worse with movement and weight bearing. Review of Systems Constitutional: denies: Fever Respiratory: denies: Cough GI: denies: Vomiting Musculoskeletal: reports: Joint pain, Pain with weight bearing. 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 REMEDY CONSULTANT: Breast cancer : None HEENT: None Psych: None Musculoskeletal: Osteoarthritis, Chronic back pain Derm: None - Past Surgical History Past Surgical History: Yes General: Appendectomy, Other /NATURAL REMEDY CONSULTANT: Other - Present Medications Home Medications: Ambulatory Orders Medication Instructions Recorded Confirmed Albuterol Sulfate [Proventil Hfa 1 puffs IH Q6HR PRN 12/29/15 09/18/18 Inhaler] Hydrochlorothiazide 12.5 mg PO DAILY 12/29/15 09/18/18 Aspirin [Adult Low Dose Aspirin EC] 81 mg PO DAILY 06/28/16 09/18/18 Anastrozole 1 tab PO DAILY 06/06/17 09/18/18 Cephalexin [Keflex] 500 mg PO Q6H #28 capsule 09/29/18 Mupirocin 1 applic TP BID #10 g 09/29/18 Hydrocodone/Acetaminophen 1 - 2 each PO Q6H PRN #14 tablet 01/11/19 [Hydrocodon-Acetaminophen 5-325] - Allergies Allergies/Adverse Reactions: Allergies Allergy/AdvReac Type Severity Reaction Status Date / Time No Known Drug Allergies Allergy Verified 09/29/18 10:47 - Social History Does the pt smoke?: No Smoking Status: Former smoker Does the pt drink ETOH?: No Does the pt have substance abuse?: No - Immunizations Immunizations are current?: Yes - POLST Patient has POLST: No PD ED PE NORMAL - Vitals Vital signs reviewed: Yes (hypertensive ) - General General: Alert and oriented X 3, No acute distress, Well developed/nourished - HEENT HEENT: Atraumatic, PERRL, EOMI - Respiratory Respiratory: No respiratory distress - Derm Derm: Normal color, Warm and dry, No rash - Extremities Extremities: No deformity, No edema, Other (There is specific tenderness to the left lateral joint line over the proximal fibula with a palpable pea sized mass over the proximal fibula. Feels like a ganglion in a tendon. ) - Neuro Neuro: Alert and oriented X 3, master control supervisor 2-12 intact, No motor deficit, No sensory deficit, Normal speech Eye Opening: Spontaneous Motor: Obeys Commands Verbal: Oriented GCS Score: 15 - Psych Psych: Normal mood, Normal affect Results - Vitals Vitals: Vital Signs - 24 hr 01/11/19 10:56 Temperature 36.5 C Heart Rate 90 Respiratory 18 Rate Blood Pressure 144/92 H O2 Saturation 99 Oxygen O2 Source Room air - Rads (name of study) left knee Radiology: Prelim report reviewed (Impression: Normal knee radiography.), EMP read indepedently, See rad report PD MEDICAL DECISION MAKING - ED course Complexity details: reviewed results, re-evaluated patient, considered differential, d/w patient, d/w family ED course: 48 y/o female with a tender left knee without effusion or joint swelling has no bony abnormality on plain films. She has stable ligaments to testing and no symptoms to suggest a meniscus problem. Her symptoms are like a tendonitis and there is a palpable mass over the area of maximal tenderness that feels like a ganglion cyst. The area is not inflamed over the skin. She is administered PO decadron and IM toradal. Departure - Departure Disposition: 01 Home, Self Care Clinical Impression: Tendonitis of left knee Condition: Stable Instructions: ED Tendinitis Calcific Follow-Up: Fuentes Martinez PA-C [Primary Care Provider] - [facility] [Provider Group] Prescriptions: Hydrocodone/Acetaminophen [Hydrocodon-Acetaminophen 5-325] 1 - 2 each PO Q6H PRN #14 tablet PRN Reason: pain
== END 2019-01-11 12:27 | disposition home or self-care (01) ==
LOC: ED 10:54
DX: M76.9 Unspecified enthesopathy, lower limb, excluding foot (principal); I10 Essential (primary) hypertension; Z79.82 Long term (current) use of aspirin; Z87.891 Personal history of nicotine dependence
CPT/HCPCS: 73564; 99283; 99284; A9270

== ENCOUNTER 2019-07-12 07:39 | Emergency (ER) | payer MEDICAID ==
[2019-07-12] MEDS ORDERED: KETOROLAC 60 MG/2 ML VIAL IM STA (08:09)
--- NOTE | 2019-07-12 08:11 | ED Physician Documentation ---
PD HPI BACK PAIN - Stated complaint Stated Complaint: BACK PX - Chief complaint Chief Complaint: Back Pain - History obtained from History obtained from: Patient (This is a 49-year-old woman with history of recurrent occasional sciatica who sneezed while she was getting out of bed yesterday and since then has had right low back pain radiating into the right leg. It is not associated with saddle anesthesia or incontinence or fevers. She has a history of breast cancer, and this is considered, but she has had very similar pain to this on occasion which predated her localized breast cancer so I doubt that is relevant. 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 HEENT: None Psych: None Musculoskeletal: Osteoarthritis, Chronic back pain Derm: None - Past Surgical History Past Surgical History: Yes General: Appendectomy, Other /CAR DRYER: Other - Present Medications Home Medications: Ambulatory Orders Medication Instructions Recorded Confirmed Anastrozole 1 tab PO DAILY 06/06/17 09/18/18 Cyclobenzaprine [Flexeril] 10 mg PO TID PRN #20 tablet 07/12/19 Hydrocodone/Acetaminophen 1 - 2 each PO Q6H PRN #14 tablet 07/12/19 [Hydrocodon-Acetaminophen 5-325] predniSONE [Deltasone] 20 mg PO [id number] #21 tab 07/12/19 - Allergies Allergies/Adverse Reactions: Allergies Allergy/AdvReac Type Severity Reaction Status Date / Time No Known Drug Allergies Allergy Verified 07/12/19 07:51 - Social History Does the pt smoke?: No Smoking Status: Never smoker Does the pt drink ETOH?: No Does the pt have substance abuse?: No Substance Use and Type: Marijuana - Immunizations Immunizations are current?: Yes - POLST Patient has POLST: No PD ED PE NORMAL - Vitals Vital signs reviewed: Yes - General General: Alert and oriented X 3, No acute distress - HEENT HEENT: PERRL, EOMI - Back Back: No CVA TTP, No spinal TTP, Other (She has muscular tenderness to the right low back, no midline spinal tenderness.) - Extremities Extremities: Other (The patient has equal and normal Achilles and patellar reflexes bilaterally. Normal sensation in all areas of the legs. Patient denies saddle anesthesia. Normal strength in flexion-extension at the ankles, knees, and flexion of the hips.) Results - Vitals Vitals: Vital Signs - 24 hr 07/12/19 07:48 Temperature 36.7 C Heart Rate 85 Respiratory 18 Rate Blood Pressure 146/105 H O2 Saturation 98 Oxygen O2 Source Room air PD MEDICAL DECISION MAKING - ED course ED course: This patient has seemingly uncomplicated musculoskeletal back pain. The patient has no "red flags." Specifically denies IV drug use, fevers, incontinence, saddle anesthesia. Spinal epidural abscess was considered, given that the patient has no fever, is not diabetic, has no spinal tenderness, does not use IV drugs, and has no bilateral neurologic symptoms, the diagnosis of spinal epidural abscess is considered exceedingly unlikely. Departure - Departure Disposition: 01 Home, Self Care Clinical Impression: Sciatica Qualifiers: Laterality: right Qualified Code(s): M54.31 - Sciatica, right side Condition: Good Record reviewed to determine appropriate education?: Yes Instructions: ED Sciatica Prescriptions: Cyclobenzaprine [Flexeril] 10 mg PO TID PRN #20 tablet PRN Reason: Spasms Hydrocodone/Acetaminophen [Hydrocodon-Acetaminophen 5-325] 1 - 2 each PO Q6H PRN #14 tablet PRN Reason: pain predniSONE [Deltasone] 20 mg PO [id number] #21 tab Comments: If not better in week talk with your doctor about physical therapy, if not better in 2 months talk with your doctor about advanced imaging. Return for new or worsening symptoms. Especially if you develop a fever, incontinence, or numbness around your groin. Do not drink or drive while taking narcotic pain medication. Note that many narcotic pain relievers also contain Tylenol/acetaminophen. Please ensure that your total dose of acetaminophen from all sources does not exceed 3 g (3000 mg) per day. You may get constipated while on this medication. Take a stool softener such as Colace twice a day while you are on it. Also add an [id number] laxative such as senna or MiraLAX on any day that you do not have a bowel movement. If you received a narcotic pain medication or sedative while in the emergency department, do not drive for the next 24 hours.
[2019-07-12 08:27] VITALS: BP 165/90
== END 2019-07-12 08:28 | disposition home or self-care (01) ==
LOC: ED 07:39
DX: M54.41 Lumbago with sciatica, right side (principal); I10 Essential (primary) hypertension; Z85.3 Personal history of malignant neoplasm of breast
CPT/HCPCS: 96372; 99283; 99284

== ENCOUNTER 2019-08-29 02:01 | Emergency (ER) | payer MEDICAID ==
--- NOTE | 2019-08-29 02:04 | ED Physician Documentation ---
History of Present Illness - Stated complaint Stated Complaint: RT FLANK PX - History obtained from History obtained from: Patient (Patient is a 49-year-old female who presents with a chief complaint of right sided sciatica. Patient reports that she was working in her garden today and overdid it she denies any bowel or bladder dysfunction denies any saddle anesthesia denies any dysuria hematuria or flank pain.) Review of Systems Constitutional: reports: Reviewed and negative Eyes: reports: Reviewed and negative Ears: reports: Reviewed and negative Nose: reports: Reviewed and negative Throat: reports: Reviewed and negative Cardiac: reports: Reviewed and negative Respiratory: reports: Reviewed and negative GI: reports: Reviewed and negative : reports: Reviewed and negative Skin: reports: Reviewed and negative Musculoskeletal: reports: Back pain Neurologic: reports: Reviewed and negative Psychiatric: reports: Reviewed and negative Endocrine: reports: Reviewed and negative Immunocompromised: reports: Reviewed and negative PD PAST MEDICAL HISTORY - Past Medical History Cardiovascular: Hypertension Respiratory: Asthma Endocrine/Autoimmune: None GI: None 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: Breast cancer : None HEENT: None Psych: None Musculoskeletal: Osteoarthritis, Chronic back pain Derm: None - Past Surgical History Past Surgical History: Yes General: Appendectomy, Other /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 COORDINATOR: Other - Present Medications Home Medications: Ambulatory Orders Medication Instructions Recorded Confirmed Anastrozole 1 tab PO DAILY 06/06/17 09/18/18 Cyclobenzaprine [Flexeril] 10 mg PO TID PRN #20 tablet 07/12/19 Hydrocodone/Acetaminophen 1 - 2 each PO Q6H PRN #14 tablet 07/12/19 [Hydrocodon-Acetaminophen 5-325] predniSONE [Deltasone] 20 mg PO [id number] #21 tab 07/12/19 Hydrocodone/Acetaminophen [[place] 1 each PO Q6HR PRN #10 tablet 08/29/19 5-325 Tablet] - Allergies Allergies/Adverse Reactions: Allergies Allergy/AdvReac Type Severity Reaction Status Date / Time No Known Drug Allergies Allergy Verified 08/29/19 02:13 - Social History Does the pt smoke?: No Smoking Status: Never smoker Does the pt drink ETOH?: No Does the pt have substance abuse?: No - Immunizations Immunizations are current?: Yes - POLST Patient has POLST: No PD ED PE NORMAL - Vitals Vital signs reviewed: Yes - General General: Alert and oriented X 3, No acute distress, Well developed/nourished - HEENT HEENT: Atraumatic, PERRL, Moist mucous membranes - Neck Neck: Supple, no meningeal sign - Cardiac Cardiac: RRR, No murmur, Strong equal pulses - Respiratory Respiratory: No respiratory distress, Clear bilaterally - Abdomen Abdomen: Normal bowel sounds, Soft, Non tender, Non distended, No organomegaly - Back Back: No CVA TTP, No spinal TTP, Other (There is point tenderness over the right sacroiliac joint there is no midline tenderness to palpation of the midline spine no step-offs or deformities she has a positive straight leg test on the right she can ambulate on her heels and her on her toes her reflexes are 2+ and symmetric in bilateral patella and Achilles proprioception is intact of chandrika ateral great toe sensations intact throughout. Strength is 5 out of 5 in bilateral upper and lower extremities.) - Derm Derm: Warm and dry - Extremities Extremities: No deformity - Neuro Neuro: Alert and oriented X 3, hand worker 2-12 intact, No motor deficit, No sensory deficit, Normal speech - Psych Psych: Normal mood, Normal affect Results - Vitals Vitals: Vital Signs - 24 hr 08/29/19 02:11 Temperature 36.7 C Heart Rate 73 Respiratory 18 Rate Blood Pressure 146/83 H O2 Saturation 100 Oxygen O2 Source Room air PD MEDICAL DECISION MAKING - ED course Complexity details: considered differential (History and physical are consistent with acute right sacroiliac dysfunction and sciatica on the right.) Departure - Departure Disposition: 01 Home, Self Care Clinical Impression: Sciatica Qualifiers: Laterality: right Qualified Code(s): M54.31 - Sciatica, right side Condition: Stable Instructions: ED Sciatica Follow-Up: Fuentes Martinez PA-C [Primary Care Provider] - Prescriptions: Hydrocodone/Acetaminophen [[place] 5-325 Tablet] 1 each PO Q6HR PRN #10 tablet PRN Reason: Pain
[2019-08-29 02:13] VITALS: BP 146/83
[2019-08-29] MEDS ORDERED: DEXAMETHASONE 10 MG/ML VIAL IM STA (02:14)
[2019-08-29] MEDS ORDERED: KETOROLAC 30 MG/ML VIAL IM STA (02:14)
[2019-08-29] MEDS ORDERED: CHERRY SYRUP 10 ML UDC PO ONE (02:20)
== END 2019-08-29 02:42 | disposition home or self-care (01) ==
LOC: ED 02:01
DX: M54.31 Sciatica, right side (principal); I10 Essential (primary) hypertension

== ENCOUNTER 2019-08-29 14:58 | Emergency (ER) | payer MEDICAID ==
--- NOTE | 2019-08-29 15:39 | ED Physician Documentation ---
History of Present Illness - Stated complaint Stated Complaint: L SIDE PAIN - Chief complaint Chief Complaint: Back Pain - History obtained from History obtained from: Patient (Pt presents with persistent right mid back pain. Was seen last night for same. She states she's had no improvement with the medication prescribed (vicodin and methocarbamol). Has hx/o sciatica but this feels different. Does have some radiation of pain into the right buttocks but no pain down the legs. No saddle anesthesia, lower ext weakness, urinary retention or incontinence. Denies fever, chills, vomiting, diarrhea, dysuria/urg/freq, vaginal discharge, weight loss. Denies trauma but notes that she was working out in her garden 2 days ago and thinks perhaps she overexerted self.) Review of Systems Constitutional: reports: Reviewed and negative Cardiac: reports: Reviewed and negative Respiratory: reports: Reviewed and negative GI: reports: Reviewed and negative : reports: Reviewed and negative Skin: reports: Reviewed and negative Musculoskeletal: reports: Back pain. 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 HEENT: None Psych: None Musculoskeletal: Osteoarthritis, Chronic back pain Derm: None - Past Surgical History Past Surgical History: Yes General: Appendectomy, Other /EQUIPMENT CLEANER AND TESTER: Other - Present Medications Home Medications: Ambulatory Orders Medication Instructions Recorded Confirmed Anastrozole 1 tab PO DAILY 06/06/17 09/18/18 Cyclobenzaprine [Flexeril] 10 mg PO TID PRN #20 tablet 07/12/19 Hydrocodone/Acetaminophen 1 - 2 each PO Q6H PRN #14 tablet 07/12/19 [Hydrocodon-Acetaminophen 5-325] predniSONE [Deltasone] 20 mg PO [id number] #21 tab 07/12/19 Hydrocodone/Acetaminophen [Blaine 1 each PO Q6HR PRN #10 tablet 08/29/19 5-325 Tablet] - Allergies Allergies/Adverse Reactions: Allergies Allergy/AdvReac Type Severity Reaction Status Date / Time No Known Drug Allergies Allergy Verified 08/29/19 15:03 - Social History Does the pt smoke?: No Smoking Status: Never smoker Does the pt drink ETOH?: No Does the pt have substance abuse?: No - Immunizations Immunizations are current?: Yes - POLST Patient has POLST: No PD ED PE NORMAL - Vitals Vital signs reviewed: Yes - General General: Alert and oriented X 3, No acute distress, Well developed/nourished - HEENT HEENT: Atraumatic, PERRL - Neck Neck: Supple, no meningeal sign, No adenopathy, No JVD - Cardiac Cardiac: RRR, No murmur, No gallop, No rub - Respiratory Respiratory: No respiratory distress, Clear bilaterally - Abdomen Abdomen: Normal bowel sounds, Soft, Non distended, Other (mild generalized abd ttp w/o guarding. ) - Back Back: Other (pain right mid thoracic paraspinal muscles, point tenderness, along with right cvat. no sacroiliac ttp. ) - Derm Derm: Normal color, Warm and dry, No rash - Extremities Extremities: No deformity, No tenderness to palpate, Normal ROM s pain, No edema, No calf tenderness / cord - Neuro Neuro: Alert and oriented X 3 Eye Opening: Spontaneous Motor: Obeys Commands Verbal: Oriented GCS Score: 15 - Psych Psych: Normal mood, Normal affect Results - Vitals Vitals: Vital Signs - 24 hr 08/29/19 08/29/19 15:03 18:53 Temperature 37.3 C 36.9 C Heart Rate 92 89 Respiratory 20 17 Rate Blood Pressure 165/82 H 147/81 H O2 Saturation 98 98 Oxygen O2 Source Room air - Labs Labs: Laboratory Tests 08/29/19 08/29/19 08/29/19 15:35 16:21 16:21 WBC 15.4 H RBC 4.67 Hgb 13.4 Hct 40.4 MCV 86.5 MCH 28.7 MCHC 33.2 RDW 13.4 Plt Count 343 MPV 9.3 Neut # (Auto) 14.1 H Lymph # (Auto) 0.9 L Richardson # (Auto) 0.2 Eos # (Auto) 0.0 Baso # (Auto) 0.0 Absolute Nucleated RBC 0.00 Nucleated RBC % 0.0 Sodium 135 Potassium 3.9 Chloride 101 Carbon Dioxide 25 Anion Gap 9.0 BUN 10 Creatinine 0.6 Estimated GFR (MDRD) 105 Glucose 130 H Calcium 9.7 Total Bilirubin 0.6 AST 20 ALT 15 Alkaline Phosphatase 70 Total Protein 8.0 Albumin 4.4 Globulin 3.6 Albumin/Globulin Ratio 1.2 Lipase 21 L Urine Color YELLOW Urine Clarity CLEAR Urine pH 7.0 Ur Specific Chaplin <=1.005 Urine Protein NEGATIVE Urine Glucose (UA) NEGATIVE Urine Ketones NEGATIVE Urine Occult Blood TRACE-LYSE Urine Nitrite NEGATIVE Urine Bilirubin NEGATIVE Urine Urobilinogen 0.2 (NORMAL) Ur Leukocyte Esterase NEGATIVE Ur Microscopic Review NOT INDICATED Urine Culture Comments NOT INDICATED PD MEDICAL DECISION MAKING - ED course Complexity details: reviewed old records, reviewed results, re-evaluated patient, considered differential, d/w patient ED course: Pt has been seen several times for similar pain over the last few months, though reports this was worse than normal, no recent imaging. She had no relief with Vicodin or methocarbamol prescribed last night. She had very focal tenderness right mid thoracic paraspinal muscles. She had no fever therefore spinal abscess unlikely and had no signs of cauda equina syndrome. Given elevated WBC and hx/o breast ca and recurrent episodes of pain over the last several months, I did decide to obtain a CT AP to evaluate for other potential causes of her pain. She was noted to have a small non-obstructing right kidney stone but otherwise unremarkable CT. She had relief with morphine and toradol and was feeling substantially better at time of discharge. Advised to continue meds previously prescribed, avoid any strenuous activity or heavy lifting, and to follow up w/ PCP in the next 1-2 weeks. Return precautions discussed. Departure - Departure Disposition: 01 Home, Self Care Clinical Impression: Kidney stone on right side Back pain Qualifiers: Back pain location: low back pain Chronicity: acute Back pain laterality: right Sciatica presence: without sciatica Qualified Code(s): M54.5 - Low back pain Condition: Good Comments: You presented with right sided back pain. We obtained a CT today as the pain was not relieved with the treatment provided last night. The CT showed a small right kidney stone that is not obstructive. Your pain improved w/ IV pain medication. You may continue the pain control ordered during your last visit, or take ibuprofen as needed and stay well hydrated. Return to the ER if you develop fever, chills, flu-like symptoms, or otherwise are worsening. Discharge Date/Time: 08/29/19 19:02
[2019-08-29 15:49] LABS: BILIRUBIN,URINE NEGATIVE (NEGATIVE); GLUCOSE, URINE (UA) NEGATIVE (NEGATIVE); KETONES,URINE (UA) NEGATIVE (NEGATIVE); LEUKOCYTE ESTERASE, URINE NEGATIVE (NEGATIVE); NITRITE,URINE NEGATIVE (NEGATIVE); OCCULT BLOOD,URINE TRACE-LYSE (NEGATIVE); PROTEIN,URINE NEGATIVE (NEGATIVE); UROBILINOGEN,URINE 0.2 (NORMAL) E.U./dL (NORMAL)
[2019-08-29 15:51] LABS: CLARITY,URINE CLEAR (CLEAR)
[2019-08-29] MEDS ORDERED: MORPHINE 2 MG/ML CARPUJECT IVP STA ×3 (16:09→18:32)
[2019-08-29 16:28] LABS: BASOPHILS % (AUTO) 0.1 %; HGB - HEMOGLOBIN 13.4 g/dL (12.0-16.0); LYMPHOCYTES # (AUTO) 0.9 10^3/uL (1.5-3.5); LYMPHOCYTES % (AUTO) 5.9 %; MEAN CORPUSCULAR HEMOGLOBIN 28.7 pg (27.0-31.0); MEAN CORPUSCULAR HGB CONC 33.2 g/dL (32.0-36.0); MEAN CORPUSCULAR VOLUME 86.5 fL (81.0-99.0); MEAN PLATELET VOLUME 9.3 fL (7.9-10.8); MONOCYTES # (AUTO) 0.2 10^3/uL (0.0-1.0); MONOCYTES % (AUTO) 1.4 %; NEUTROPHILS # (AUTO) 14.1 10^3/uL (1.5-6.6); PLT - PLATELET COUNT 343 10^3/uL (130-450); RED BLOOD COUNT 4.67 10^6/uL (4.20-5.40); RED CELL DISTRIBUTION WIDTH 13.4 % (12.0-15.0); WHITE BLOOD COUNT 15.4 x10^3/uL (4.8-10.8)
[2019-08-29 16:40] LABS: ALBUMIN 4.4 g/dL (3.2-5.5); ALBUMIN/GLOBULIN RATIO 1.2 (1.0-2.2); BILIRUBIN,TOTAL 0.6 mg/dL (0.2-1.0); CALCIUM 9.7 mg/dL (8.5-10.3); CREATININE 0.6 mg/dL (0.4-1.0)
[2019-08-29] MEDS ORDERED: IOVERSOL 320 100 ML VIAL IVP ONE ×2 (17:11→17:36)
--- NOTE | 2019-08-29 18:07 | CT Report ---
Reason: right flank pain. Procedure Date: 08/29/2019 Accession Number: [id number] / [id number] Procedure: CT - Abdomen/Pelvis W CPT Code: Final Report FULL RESULT: EXAM: CT ABDOMEN AND PELVIS EXAM DATE: 08/29/2019 05:34 PM. CLINICAL HISTORY: Right flank pain. COMPARISONS: ABDOMEN/PELVIS W/O 06/03/2016 4:06 PM. TECHNIQUE: Routine helical CT imaging was performed through the abdomen and pelvis. IV contrast: 100 OPTIRAY 320. Enteric contrast: No. Reconstructions: Coronal and sagittal. In accordance with CT protocol optimization, one or more of the following dose reduction techniques were utilized for this exam: automated exposure control, adjustment of mA and/or KV based on patient size, or use of iterative reconstructive technique. FINDINGS: Lung Bases: Unremarkable. Liver: Normal. No masses. Gallbladder/Bile Ducts: Unremarkable. Spleen: Normal. Pancreas: Normal. Adrenal Glands: Normal. Kidneys: No suspicious masses. No hydronephrosis. Nonobstructing right intrarenal stone measuring 3 mm in diameter. Normal course and caliber of the ureters without evidence of ureteral stones. Peritoneal Cavity/Bowel: Normal caliber of the small bowel without evidence of obstruction. No focal bowel thickening or inflammation. Appendix: Appendix not visualized. No inflammatory changes in the right lower quadrant. Pelvic Organs: Urinary bladder unremarkable. Retroverted uterus. No adnexal masses. Vasculature: No aneurysms or other significant abnormality. Bones: No significant abnormality. Other: None. IMPRESSION: 1. No acute findings in the abdomen or pelvis. 2. Nonobstructing right intrarenal stone measuring 3 mm in diameter. RADIA
[2019-08-29] MEDS ORDERED: KETOROLAC 30 MG/ML VIAL IVP STA (18:32)
[2019-08-29 18:53] VITALS: BP 147/81
== END 2019-08-29 19:02 | disposition home or self-care (01) ==
LOC: ED 14:58
DX: M54.5 Low back pain (principal); N20.0 Calculus of kidney; I10 Essential (primary) hypertension; M54.31 Sciatica, right side
CPT/HCPCS: 36415; 74177; 80053; 81003; 83690; 85025; 96374; 96375; 96376; Q9967; 81001; 87086

== ENCOUNTER 2019-09-09 05:58 | Emergency (ER) | payer MEDICAID ==
--- NOTE | 2019-09-09 06:04 | ED Physician Documentation ---
<Clovis Hernandez - Last Filed: 09/09/19 06:45> History of Present Illness - Stated complaint Stated Complaint: AB/BACK PX - History obtained from History obtained from: Patient (Patient is a 49-year-old female who presents with right flank pain and reports that she recently has been diagnosed with a kidney stone.She also reports nausea. Denies any fevers.) Review of Systems Constitutional: reports: Reviewed and negative Eyes: reports: Reviewed and negative Ears: reports: Reviewed and negative Nose: reports: Reviewed and negative Throat: reports: Reviewed and negative Cardiac: reports: Reviewed and negative Respiratory: reports: Reviewed and negative GI: reports: Other (Right flank pain) : reports: Reviewed and negative Skin: reports: Reviewed and negative Musculoskeletal: reports: Reviewed and negative Neurologic: reports: Reviewed and negative Psychiatric: reports: Reviewed and negative Endocrine: reports: Reviewed and negative Immunocompromised: reports: Reviewed and negative PD PAST MEDICAL HISTORY - Past Medical History Cardiovascular: Hypertension Respiratory: Asthma Neuro: None Endocrine/Autoimmune: None GI: None PLEXIGLAS FORMER: Breast cancer : None HEENT: None Psych: None Musculoskeletal: Osteoarthritis, Chronic back pain Derm: None - Past Surgical History Past Surgical History: Yes General: Appendectomy, Other /PLEXIGLAS FORMER: Other - Present Medications Home Medications: Ambulatory Orders Medication Instructions Recorded Confirmed Anastrozole 1 tab PO DAILY 06/06/17 09/18/18 Cyclobenzaprine [Flexeril] 10 mg PO TID PRN #20 tablet 07/12/19 Hydrocodone/Acetaminophen 1 - 2 each PO Q6H PRN #14 tablet 07/12/19 [Hydrocodon-Acetaminophen 5-325] predniSONE [Deltasone] 20 mg PO [id number] #21 tab 07/12/19 Hydrocodone/Acetaminophen [[place] 1 each PO Q6HR PRN #10 tablet 08/29/19 5-325 Tablet] Amitriptyline [Elavil] 25 mg PO QPM #30 tablet 09/09/19 Naproxen 375 mg PO BID #20 tablet 09/09/19 Oxycodone HCl/Acetaminophen 1 each PO Q4H PRN #20 tablet 09/09/19 [Percocet 7.5-325 mg Tablet] dexAMETHasone [Decadron] 4 mg PO DAILY #5 tablet 09/09/19 - Allergies Allergies/Adverse Reactions: Allergies Allergy/AdvReac Type Severity Reaction Status Date / Time No Known Drug Allergies Allergy Verified 08/29/19 15:03 - Social History Does the pt smoke?: No Smoking Status: Never smoker Does the pt drink ETOH?: No Does the pt have substance abuse?: No - Immunizations Immunizations are current?: Yes - POLST Patient has POLST: No PD ED PE NORMAL - Vitals Vital signs reviewed: Yes - General General: Alert and oriented X 3, No acute distress, Well developed/nourished - HEENT HEENT: Atraumatic, PERRL, Moist mucous membranes - Neck Neck: Supple, no meningeal sign - Cardiac Cardiac: RRR, No murmur, Strong equal pulses - Respiratory Respiratory: No respiratory distress, Clear bilaterally - Abdomen Abdomen: Normal bowel sounds, Soft, Non tender, Non distended - Back Back: Other (Right-sided CVA tenderness present) - Derm Derm: Warm and dry - Extremities Extremities: No deformity - Neuro Neuro: Alert and oriented X 3, mail 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 Ronny Barry at shift change. Care of this patient is assumed by Dr. Ronny Brary.) Departure - Departure Disposition: 01 Home, Self Care Clinical Impression: Flank pain Condition: Stable Instructions: ED Flank Pain Uncertain Cause Follow-Up: Fuentes Martinez PA-C [Primary Care Provider] - Prescriptions: Amitriptyline [Elavil] 25 mg PO QPM #30 tablet dexAMETHasone [Decadron] 4 mg PO DAILY #5 tablet Naproxen 375 mg PO BID #20 tablet Oxycodone HCl/Acetaminophen [Percocet 7.5-325 mg Tablet] 1 each PO Q4H PRN #20 tablet PRN Reason: Pain Comments: Your CT scan showed a small stone in the kidney but nothing in the ureter or area that would cause pain. There was some mild arthritic changes in the lower thoracic and lumbar spine but no significant abnormalities nor obvious large disc problems to account for the pain. There may still be potentially a pinched nerve type pain coming from the lower thoracic area. Otherwise consider muscular pain. No signs of kidney infection on your urine test. Presuming some musculoskeletal pain, we can treated with anti-inflammatories of naproxen twice daily with food for 10 days and also Decadron steroid daily for 5 days. We can also try amitriptyline very low-dose nightly for 2 or 3 weeks and see if that helps as well. This would be targeted towards reducing nerve pain such as a pinched nerve. To that add Tylenol 3 or 4 times a day or oxycodone if needed for worse pain. Follow-up with your primary care as well as your oncologist as planned. <Ronny Barry - Last Filed: 09/09/19 08:30> Results - Vitals Vitals: Vital Signs - 24 hr 09/09/19 09/09/19 06:04 07:26 Temperature 36.6 C Heart Rate 65 54 L Respiratory 20 16 Rate Blood Pressure 140/76 H 145/72 H O2 Saturation 99 97 Oxygen O2 Source Room air - Labs Labs: Laboratory Tests 09/09/19 09/09/19 09/09/19 06:22 06:22 06:22 WBC 9.4 RBC 4.44 Hgb 13.0 Hct 39.6 MCV 89.2 MCH 29.3 MCHC 32.8 RDW 13.3 Plt Count 338 MPV 9.5 Neut # (Auto) 7.3 H Lymph # (Auto) 1.3 L [place] # (Auto) 0.5 Eos # (Auto) 0.2 Baso # (Auto) 0.1 Absolute Nucleated RBC 0.00 Nucleated RBC % 0.0 PT 11.4 INR 1.0 APTT 30.6 Sodium 137 Potassium 3.4 L Chloride 103 Carbon Dioxide 26 Anion Gap 8.0 BUN 14 Creatinine 0.6 Estimated GFR (MDRD) 105 Glucose 125 H Lactic Acid Calcium 9.2 Total Bilirubin 0.7 AST 20 ALT 14 Alkaline Phosphatase 65 Total Protein 7.5 Albumin 4.2 Globulin 3.3 Albumin/Globulin Ratio 1.3 Lipase 27 Urine Color Urine Clarity Urine pH Ur Specific [place] Urine Protein Urine Glucose (UA) Urine Ketones Urine Occult Blood Urine Nitrite Urine Bilirubin Urine Urobilinogen Ur Leukocyte Esterase Ur Microscopic Review Urine Culture Comments Urine HCG, Qual 09/09/19 09/09/19 06:22 07:20 WBC RBC Hgb Hct MCV MCH MCHC RDW Plt Count MPV Neut # (Auto) Lymph # (Auto) [place] # (Auto) Eos # (Auto) Baso # (Auto) Absolute Nucleated RBC Nucleated RBC % PT INR APTT Sodium Potassium Chloride Carbon Dioxide Anion Gap BUN Creatinine Estimated GFR (MDRD) Glucose Lactic Acid 1.1 Calcium Total Bilirubin AST ALT Alkaline Phosphatase Total Protein Albumin Globulin Albumin/Globulin Ratio Lipase Urine Color YELLOW Urine Clarity CLEAR Urine pH 7.5 Ur Specific [place] 1.020 Urine Protein NEGATIVE Urine Glucose (UA) NEGATIVE Urine Ketones NEGATIVE Urine Occult Blood TRACE-LYSE Urine Nitrite NEGATIVE Urine Bilirubin NEGATIVE Urine Urobilinogen 0.2 (NORMAL) Ur Leukocyte Esterase NEGATIVE Ur Microscopic Review NOT INDICATED Urine Culture Comments NOT INDICATED Urine HCG, Qual NEGATIVE - Rads (name of study) Abd/pelvic CT Radiology: Prelim report reviewed (There is a small stone within the kidney similar to prior CT scan. No ureteral stones nor hydronephrosis. No other acute abnormalities seen. Mild arthritic changes in the lower thoracic and lumbar spine but otherwise no acute osseous abnormalities. No other abnormal findings.), See rad report PD MEDICAL DECISION MAKING - ED course Complexity details: re-evaluated patient (Patient was seen after change of shift with the CT results not showing any obvious cause of the pain. She hurts to the right flank area. There is some tenderness in the muscular area. No spinous tenderness. No rash noted. Abdominal exam is benign without any guarding or peritoneal signs. At this point would presume some musculoskeletal pain. She states she has been having it for months off-and-on and worse lately. She has not noticed a rash along the way. Consider nerve irritation such as pinched nerve or shingles without rash or she may have had a mild rash initially and now which is postherpetic. Otherwise consider muscular pain for myofascial inflammation. Consider treating with anti-inflammatories and pain medicine and could also add a medicine for nerve irritation such as low-dose amitriptyline.), d/w patient
[2019-09-09] MEDS ORDERED: KETOROLAC 30 MG/ML VIAL IVP STA (06:11)
[2019-09-09] MEDS ORDERED: ONDANSETRON 4 MG/2 ML VIAL IVP STA (06:11)
[2019-09-09] MEDS ORDERED: MORPHINE 2 MG/ML CARPUJECT IVP STA (06:11)
[2019-09-09] MEDS ORDERED: SODIUM CHLORIDE 0.9% 1,000 ML IV ONE (06:11)
[2019-09-09 06:32] LABS: BASOPHILS # (AUTO) 0.1 10^3/uL (0.0-0.1); BASOPHILS % (AUTO) 0.5 %; EOSINOPHILS # (AUTO) 0.2 10^3/uL (0.0-0.7); LYMPHOCYTES # (AUTO) 1.3 10^3/uL (1.5-3.5); LYMPHOCYTES % (AUTO) 13.9 %; MEAN CORPUSCULAR HEMOGLOBIN 29.3 pg (27.0-31.0); MEAN CORPUSCULAR HGB CONC 32.8 g/dL (32.0-36.0); MEAN CORPUSCULAR VOLUME 89.2 fL (81.0-99.0); MEAN PLATELET VOLUME 9.5 fL (7.9-10.8); MONOCYTES # (AUTO) 0.5 10^3/uL (0.0-1.0); MONOCYTES % (AUTO) 5.1 %; NEUTROPHILS # (AUTO) 7.3 10^3/uL (1.5-6.6); NEUTROPHILS % (AUTO) 78.1 %; PLT - PLATELET COUNT 338 10^3/uL (130-450); RED BLOOD COUNT 4.44 10^6/uL (4.20-5.40); RED CELL DISTRIBUTION WIDTH 13.3 % (12.0-15.0); WHITE BLOOD COUNT 9.4 x10^3/uL (4.8-10.8)
[2019-09-09 06:44] LABS: ALBUMIN 4.2 g/dL (3.2-5.5); ALBUMIN/GLOBULIN RATIO 1.3 (1.0-2.2); BILIRUBIN,TOTAL 0.7 mg/dL (0.2-1.0); CALCIUM 9.2 mg/dL (8.5-10.3); CREATININE 0.6 mg/dL (0.4-1.0); TOTAL PROTEIN 7.5 g/dL (6.7-8.2)
[2019-09-09 06:54] LABS: PT - PROTHROMBIN TIME 11.4 secs (9.9-12.6)
[2019-09-09] MEDS ORDERED: HYDROmorphone 0.5 MG/0.5 ML SYRINGE IVP STA (06:56)
[2019-09-09 07:06] LABS: PARTIAL THROMBOPLASTIN TIME 30.6 secs (24.9-33.3)
--- NOTE | 2019-09-09 07:53 | CT Report ---
Reason: right flank pain Procedure Date: 09/09/2019 Accession Number: [id number] / [id number] Procedure: CT - Abdomen/Pelvis WO CPT Code: Final Report FULL RESULT: EXAM: CT ABDOMEN AND PELVIS (CT KUB) EXAM DATE: 09/09/2019 06:52 AM. CLINICAL HISTORY: Right flank pain. History of kidney stones. COMPARISONS: CT ABDOMEN/PELVIS W 08/29/2019 5:[address] KUB 06/03/2016. TECHNIQUE: Routine axial helical CT imaging was performed through the abdomen and pelvis without IV contrast. Reconstructions: Coronal and sagittal. In accordance with CT protocol optimization, one or more of the following dose reduction techniques were utilized for this exam: automated exposure control, adjustment of mA and/or KV based on patient size, or use of iterative reconstructive technique. FINDINGS: Lung Bases: Unremarkable. Right Kidney/Ureter: There is a nonobstructing calyceal or parenchymal calcification measuring 3 mm located in the medial interpolar region of the right kidney (series 3 image 54). This is unchanged compared to prior exams dating back to 06/03/2016. No obstructing stones, hydronephrosis, or hydroureter. No perinephric fat stranding. Left Kidney/Ureter: No stones, hydronephrosis, or hydroureter. No perinephric fat stranding. Other Solid Organs: Noncontrast images of the solid organs are grossly unremarkable. Gallbladder/Bile Ducts: Unremarkable. Peritoneal Cavity: No free fluid, free air or aris adenopathy. Bowel is grossly unremarkable. No dilated loops of bowel or abnormal colonic stool burden. The appendix is not visualized, but there is no inflammatory change or fluid adjacent to the cecum to suggest acute appendicitis. Pelvic Organs: The urinary bladder is nearly empty, limiting evaluation. No bladder stones or wall thickening. Noncontrast images of the visualized pelvic organs are unremarkable. Vasculature: Unremarkable. Other: There are mild degenerative disk changes of the lower thoracic and lumbar spine. No acute osseous abnormality or bone lesion. IMPRESSION: 1. No obstructing urinary tract stones or obstruction. There is a nonobstructing 3 mm calyceal or parenchymal calcification in the right kidney, unchanged compared to prior exams dating back to 06/03/2016. 2. No acute findings in the abdomen or pelvis. RADIA
[2019-09-09 07:54] LABS: BILIRUBIN,URINE NEGATIVE (NEGATIVE); CLARITY,URINE CLEAR (CLEAR); GLUCOSE, URINE (UA) NEGATIVE (NEGATIVE); KETONES,URINE (UA) NEGATIVE (NEGATIVE); LEUKOCYTE ESTERASE, URINE NEGATIVE (NEGATIVE); NITRITE,URINE NEGATIVE (NEGATIVE); OCCULT BLOOD,URINE TRACE-LYSE (NEGATIVE); PH,URINE 7.5 PH (5.0-7.5); PROTEIN,URINE NEGATIVE (NEGATIVE); UROBILINOGEN,URINE 0.2 (NORMAL) E.U./dL (NORMAL)
[2019-09-09 07:55] LABS: HCG UR QUAL NEGATIVE
[2019-09-09] MEDS ORDERED: HYDROmorphone 1 MG/ML CARPUJECT IVP STA (08:22)
[2019-09-09] MEDS ORDERED: DEXAMETHASONE 10 MG/ML VIAL IVP STA (08:23)
[2019-09-09 09:03] VITALS: BP 144/96
== END 2019-09-09 09:04 | disposition home or self-care (01) ==
LOC: ED 05:58
DX: R10.9 Unspecified abdominal pain (principal); I10 Essential (primary) hypertension; G89.29 Other chronic pain; M54.9 Dorsalgia, unspecified; M19.90 Unspecified osteoarthritis, unspecified site; C50.919 Malignant neoplasm of unspecified site of unspecified female breast; Z79.52 Long term (current) use of systemic steroids; Z79.891 Long term (current) use of opiate analgesic
CPT/HCPCS: 36415; 74176; 80053; 81003; 81025; 83605; 83690; 85025; 85610; 85730; 96361; 96374; 96375; 99283; 99285; J1170; 81001; 87086

== ENCOUNTER 2019-09-11 07:26 | Emergency (ER) | payer MEDICAID ==
[2019-09-11 07:33] VITALS: BP 152/82
[2019-09-11 07:51] LABS: BASOPHILS % (AUTO) 0.5 %; EOSINOPHILS # (AUTO) 0.1 10^3/uL (0.0-0.7); EOSINOPHILS % (AUTO) 1.5 %; HGB - HEMOGLOBIN 12.9 g/dL (12.0-16.0); LYMPHOCYTES # (AUTO) 2.3 10^3/uL (1.5-3.5); LYMPHOCYTES % (AUTO) 29.3 %; MEAN CORPUSCULAR HEMOGLOBIN 29.1 pg (27.0-31.0); MEAN CORPUSCULAR VOLUME 88.1 fL (81.0-99.0); MEAN PLATELET VOLUME 9.3 fL (7.9-10.8); MONOCYTES # (AUTO) 0.4 10^3/uL (0.0-1.0); MONOCYTES % (AUTO) 5.6 %; NEUTROPHILS # (AUTO) 4.9 10^3/uL (1.5-6.6); NEUTROPHILS % (AUTO) 62.7 %; PLT - PLATELET COUNT 359 10^3/uL (130-450); RED BLOOD COUNT 4.44 10^6/uL (4.20-5.40); RED CELL DISTRIBUTION WIDTH 13.6 % (12.0-15.0); WHITE BLOOD COUNT 7.8 x10^3/uL (4.8-10.8)
[2019-09-11 07:52] LABS: BILIRUBIN,URINE NEGATIVE (NEGATIVE); GLUCOSE, URINE (UA) NEGATIVE (NEGATIVE); KETONES,URINE (UA) NEGATIVE (NEGATIVE); LEUKOCYTE ESTERASE, URINE NEGATIVE (NEGATIVE); NITRITE,URINE NEGATIVE (NEGATIVE); OCCULT BLOOD,URINE TRACE-INTA (NEGATIVE); PH,URINE 7.5 PH (5.0-7.5); PROTEIN,URINE NEGATIVE (NEGATIVE); UROBILINOGEN,URINE 0.2 (NORMAL) E.U./dL (NORMAL)
[2019-09-11 07:54] LABS: CLARITY,URINE CLEAR (CLEAR)
--- NOTE | 2019-09-11 08:00 | ED Physician Documentation ---
PD HPI BACK PAIN - Stated complaint Stated Complaint: R SIDE PX - Chief complaint Chief Complaint: Abd Pain - History obtained from History obtained from: Patient - History of Present Illness Timing - onset: How many weeks ago (3) Timing - duration: Weeks (3) Timing - details: Gradual onset, Still present Location: Mid, Right Quality: Pain, Spasm, Sharp, Similar to prior episodes Associated symptoms: No: Fever, Weakness, Numbness, Incontinent of urine, Unable to urinate, Hematuria, Incontinent of stool Improves with: Position, Meds Worsened by: Movement, Palpation Contributing factors: Cancer. No: Lifting, Twisting, Trauma, Anticoagulated, IVDA Similar symptoms before: Diagnosis (back strain) Recently seen: Emergency Dept - Additional information Additional information: 49-year-old female with a history of ER positive HER-2 positive breast cancer on anastrozole and tamoxifen has developed pain in her right flank area and right back. This was initially thought to be secondary to her working in the garden and she had some relief with some pain medication but the pain came back and does not be appear to be responding to the usual time course for a musculoskeletal injury. She has now had symptoms for about 3 weeks and the pain is keeping her awake at night she is very uncomfortable. She has been using a hot shower but she has not been using a heating pack. She has been drinking lots of extra fluids. She does not have any visceral symptoms of any kind. She has had shingles previously in her shoulder on the right side remembers this being a very bad pain. Review of Systems Constitutional: reports: Fatigue. denies: Fever, Chills Eyes: denies: Decreased vision Ears: denies: Ear pain Nose: denies: Rhinorrhea / runny nose, Congestion Throat: denies: Sore throat Cardiac: denies: Chest pain / pressure, Palpitations Respiratory: denies: Dyspnea, Cough GI: reports: Abdominal Pain. denies: Abdominal Swelling, Nausea, Vomiting, Constipation, Diarrhea : denies: Dysuria, Frequency Skin: denies: Rash, Lesions Musculoskeletal: reports: Back pain. 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 HEENT: None Psych: None Musculoskeletal: Osteoarthritis, Chronic back pain Derm: None - Past Surgical History Past Surgical History: Yes General: Appendectomy, Other /STRESS ENGINEER: Other - Present Medications Home Medications: Ambulatory Orders Medication Instructions Recorded Confirmed Anastrozole 1 tab PO DAILY 06/06/17 09/18/18 Cyclobenzaprine [Flexeril] 10 mg PO TID PRN #20 tablet 07/12/19 Hydrocodone/Acetaminophen 1 - 2 each PO Q6H PRN #14 tablet 07/12/19 [Hydrocodon-Acetaminophen 5-325] predniSONE [Deltasone] 20 mg PO [id number] #21 tab 07/12/19 Hydrocodone/Acetaminophen [[place] 1 each PO Q6HR PRN #10 tablet 08/29/19 5-325 Tablet] Amitriptyline [Elavil] 25 mg PO QPM #30 tablet 09/09/19 Naproxen 375 mg PO BID #20 tablet 09/09/19 Oxycodone HCl/Acetaminophen 1 each PO Q4H PRN #20 tablet 09/09/19 [Percocet 7.5-325 mg Tablet] dexAMETHasone [Decadron] 4 mg PO DAILY #5 tablet 09/09/19 Oxycodone HCl/Acetaminophen 1 - 2 each PO Q6HR PRN #20 tablet 09/11/19 [Percocet 7.5-325 mg Tablet] Valacyclovir HCl [Valacyclovir] 1,000 mg PO TID #21 tablet 09/11/19 - Allergies Allergies/Adverse Reactions: Allergies Allergy/AdvReac Type Severity Reaction Status Date / Time No Known Drug Allergies Allergy Verified 09/11/19 07:29 - Social History Does the pt smoke?: No Smoking Status: Never smoker Does the pt drink ETOH?: No Does the pt have substance abuse?: No - Immunizations Immunizations are current?: Yes - POLST Patient has POLST: No PD ED PE NORMAL - Vitals Vital signs reviewed: Yes - General General: Alert and oriented X 3, Well developed/nourished, Other (49 y/o female in tears appears to be in pain ) - HEENT HEENT: Atraumatic, PERRL, EOMI - Neck Neck: Supple, no meningeal sign, No bony TTP - Cardiac Cardiac: RRR, No murmur - Respiratory Respiratory: No respiratory distress, Clear bilaterally - Abdomen Abdomen: Normal bowel sounds, Soft, Non tender, Non distended, No organomegaly - Back Back: No CVA TTP, No spinal TTP, Other (There is pain to palpation of the right flank/lower ribs. There is an area of erythema about 4cm on the back overlying the lower ribs about mid-scapular. The area is concerning for shingles. ) - Derm Derm: Normal color, Warm and dry - Extremities Extremities: No deformity, No edema, No calf tenderness / cord - Neuro Neuro: Alert and oriented X 3, strategic partnership manager 2-12 intact, No motor deficit, No sensory deficit, Normal speech Eye Opening: Spontaneous Motor: Obeys Commands Verbal: Oriented GCS Score: 15 - Psych Psych: Normal mood, Normal affect Results - Vitals Vitals: Vital Signs - 24 hr 09/11/19 07:30 Temperature 37 C Heart Rate 74 Respiratory 20 Rate Blood Pressure 152/82 H O2 Saturation 98 Oxygen O2 Source Room air - Labs Labs: Laboratory Tests 09/11/19 09/11/19 09/11/19 07:40 07:45 07:45 WBC 7.8 RBC 4.44 Hgb 12.9 Hct 39.1 MCV 88.1 MCH 29.1 MCHC 33.0 RDW 13.6 Plt Count 359 MPV 9.3 Neut # (Auto) 4.9 Lymph # (Auto) 2.3 [place] # (Auto) 0.4 Eos # (Auto) 0.1 Baso # (Auto) 0.0 Absolute Nucleated RBC 0.00 Nucleated RBC % 0.0 Sodium 136 Potassium 3.2 L Chloride 101 Carbon Dioxide 24 Anion Gap 11.0 BUN 12 Creatinine 0.7 Estimated GFR (MDRD) 88 L Glucose 106 H Calcium 9.1 Total Bilirubin 0.5 AST 19 ALT 14 Alkaline Phosphatase 57 Total Protein 7.6 Albumin 4.3 Globulin 3.3 Albumin/Globulin Ratio 1.3 Lipase 26 Urine Color LT. YELLOW Urine Clarity CLEAR Urine pH 7.5 Ur Specific [place] 1.010 Urine Protein NEGATIVE Urine Glucose (UA) NEGATIVE Urine Ketones NEGATIVE Urine Occult Blood TRACE-INTA Urine Nitrite NEGATIVE Urine Bilirubin NEGATIVE Urine Urobilinogen 0.2 (NORMAL) Ur Leukocyte Esterase NEGATIVE Ur Microscopic Review NOT INDICATED Urine Culture Comments NOT INDICATED PD MEDICAL DECISION MAKING - ED course Complexity details: reviewed old records, reviewed results, re-evaluated patient, considered differential, d/w patient ED course: 49-year-old female with right flank pain has had 2 CT scans 1 with contrast 1 without contrast both without demonstrating pathologic findings to account for the patient's pain. She has had some relief with pain medication but the relief is short-lived and pain has persisted. She does have an area on her back today consistent with herpes simplex and she is treated here in the emergency department with valacyclovir 1000 mg Toradol 60 mg and Dilaudid 1 mg as well as Zofran. Departure - Departure Disposition: 01 Home, Self Care Clinical Impression: Shingles Qualifiers: Herpes zoster complications: without complications Qualified Code(s): B02.9 - Zoster without complications Condition: Stable Instructions: ED Shingles Follow-Up: Fuentes Martinez PA-C [Primary Care Provider] - Prescriptions: Oxycodone HCl/Acetaminophen [Percocet 7.5-325 mg Tablet] 1 - 2 each PO Q6HR PRN #20 tablet PRN Reason: Pain Valacyclovir HCl [Valacyclovir] 1,000 mg PO TID #21 tablet
[2019-09-11 08:06] LABS: ALBUMIN 4.3 g/dL (3.2-5.5); ALBUMIN/GLOBULIN RATIO 1.3 (1.0-2.2); BILIRUBIN,TOTAL 0.5 mg/dL (0.2-1.0); CALCIUM 9.1 mg/dL (8.5-10.3); CREATININE 0.7 mg/dL (0.4-1.0); TOTAL PROTEIN 7.6 g/dL (6.7-8.2)
[2019-09-11] MEDS: HYDROmorphone 1 MG/ML CARPUJECT IVP STA (08:12)
[2019-09-11] MEDS: valACYclovir 500 MG TABLET PO STA (08:13)
[2019-09-11] MEDS: POTASSIUM CHLORIDE 20 MEQ TABLET PO STA (08:13)
[2019-09-11] MEDS: ONDANSETRON 4 MG/2 ML VIAL IVP STA (08:13)
[2019-09-11] MEDS: KETOROLAC 30 MG/ML VIAL IVP STA (08:13)
== END 2019-09-11 08:19 | disposition home or self-care (01) ==
LOC: ED 07:26
DX: B02.9 Zoster without complications (principal); C50.919 Malignant neoplasm of unspecified site of unspecified female breast; Z17.0 Estrogen receptor positive status [ER+]; I10 Essential (primary) hypertension
CPT/HCPCS: 36415; 80053; 81003; 83690; 85025; 96374; 96375; 99283; 99284; A9270; J1170; 81001; 87086

== ENCOUNTER 2019-10-14 15:35 | Emergency (ER) | payer OTHER, MEDICAID ==
--- NOTE | 2019-10-14 15:49 | ED Physician Documentation ---
PD HPI LOWER EXT INJURY - Stated complaint Stated Complaint: LT KNEE PX - Chief complaint Chief Complaint: Ext Problem - History obtained from History obtained from: Patient - History of Present Illness PD HPI LOW EXT INJURY LOCATION: Left, Knee Type of injury: Fall (She states she was on a 2 or 3 step small step stool putting some basin of ice up on the top of her rack or such. She states the stepstool broke abruptly and she went down forcefully onto both feet and may have had a twisting of the knee. She had onset of knee pain abruptly and subsequently noted some swelling in the knee fairly soon after the injury. It continues to hurt with walking. She has had increased swelling overnight into today. She is able to bear weight but is not as comfortable.) Where injury occurred: Work Timing - onset: Yesterday Timing - details: Abrupt onset Improved by: Rest Worsened by: Moving, Palpating, Other (weight bearing) Associated symptoms: Swelling. No: Weakness, Numbness Contributing factors: No: Prior ortho surgery Similar symptoms before: Has not had sx before (no problems with her knee in the past.) Recently seen: Clinic (She had been seen recently for back pain and is scheduled for an MRI of her back this coming week. 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 HEENT: None Psych: None Musculoskeletal: Osteoarthritis, Chronic back pain Derm: None - Past Surgical History Past Surgical History: Yes General: Appendectomy, Other /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: Other - Present Medications Home Medications: Ambulatory Orders Medication Instructions Recorded Confirmed Anastrozole 1 tab PO DAILY 06/06/17 09/26/19 Anastrozole 1 mg PO DAILY 30 Days #30 tablet 09/26/19 Gabapentin 300 mg PO DAILY 09/26/19 Hydrocodone/Acetaminophen [[place] 1 each PO Q6H PRN #15 tablet 10/14/19 5-325 Tablet] - Allergies Allergies/Adverse Reactions: Allergies Allergy/AdvReac Type Severity Reaction Status Date / Time No Known Drug Allergies Allergy Verified 09/26/19 11:46 - Social History Does the pt smoke?: No Smoking Status: Never smoker Does the pt drink ETOH?: No Does the pt have substance abuse?: No - Immunizations Immunizations are current?: Yes - POLST Patient has POLST: No PD ED PE NORMAL - Vitals Vital signs reviewed: Yes - General General: Alert and oriented X 3, No acute distress, Well developed/nourished - Derm Derm: Normal color, Warm and dry, No rash - Extremities Extremities: No edema, No calf tenderness / cord, Other (The left knee shows a moderate effusion with general tenderness in the soft tissue. She is able to extend her knee showing quadriceps tendon attachment adequately. The popliteal area shows some mild tenderness. The hamstring tendons are intact. There is some pain with any motion of the knee so ligament testing is a little guarded but otherwise I do not feel any laxity for cruciate nor collateral testing and there is no significant pain with those. She does have pain with some rotation and impaction.) - Neuro Neuro: Alert and oriented X 3, No motor deficit, No sensory deficit, Normal speech Results - Vitals Vitals: Vital Signs - 24 hr 10/14/19 15:43 Temperature 37 C Heart Rate 70 Respiratory 16 Rate Blood Pressure 140/99 H O2 Saturation 95 Oxygen O2 Source Room air - Rads (name of study) left knee Radiology: Prelim report reviewed (No noted fractures. Effusion is noted.), See rad report PD MEDICAL DECISION MAKING - ED course Complexity details: reviewed results, considered differential (She had a vertical load mechanism with pain in the knee and swelling. No obvious fractures are seen. Presume she has some meniscal contusion and perhaps some birdie int capsule injury. She does have a moderate effusion and we discussed the potential options of time for the swelling to go down versus arthrocentesis to reduce some of the pressure. She felt it was not hurting enough to warrant draining the knee at this time. We will have her wear a knee brace. She declined the need for crutches. Continue some anti-inflammatories and add pain medicine if needed. Limited weightbearing and walking for work for 4 to 5 days. Follow-up with orthopedics if not improved well in about a week.), d/w patient Departure - Departure Disposition: 01 Home, Self Care Clinical Impression: Acute meniscal injury of left knee Qualifiers: Encounter type: initial encounter Qualified Code(s): S83.8X2A - Sprain of other specified parts of left knee, initial encounter Left knee sprain Qualifiers: Encounter type: initial encounter Involved ligament of knee: unspecified ligament Qualified Code(s): S83.92XA - Sprain of unspecified site of left knee, initial encounter Condition: Stable Record reviewed to determine appropriate education?: Yes Instructions: ED Meniscal Injury Knee Poss Follow-Up: Vianey Salinas ARNP [Primary Care Provider] - Cooper Smith MD [Provider Admit Priv/Credential] - Prescriptions: Hydrocodone/Acetaminophen [[place] 5-325 Tablet] 1 each PO Q6H PRN #15 tablet PRN Reason: Pain Comments: Your x-ray appears normal without any fractures. I presume he has some bruising of the cartilage in the knee and may be some stretching of some ligaments. Use the knee brace when up and around for the next week or so. The swelling in the knee should go down over the next several days to week. Continue some anti-inflammatory such as ibuprofen 3 times a day 600mg with food. To that add Tylenol or hydrocodone if needed for pain. Minimal standing and walking and weightbearing at work for the next 5 or 6 days. Follow-up with orthopedics in about a week, call Tuesday for an appointment. At that point with the swelling down there should be better able to assess the ligaments and cartilage. Forms: Activity restrictions
[2019-10-14] MEDS ORDERED: HYDROcod/ACETAM 5/325 MG TABLET PO STA (16:03)
[2019-10-14] MEDS ORDERED: NAPROXEN 250 MG TABLET PO STA (16:03)
--- NOTE | 2019-10-14 16:40 | XRAY Report ---
PROCEDURE: Knee 3 View LT INDICATIONS: fall from couple feet onto foot, with knee pain TECHNIQUE: 3 views of the left 01/11/2019 knee(s) were acquired. COMPARISON: None. FINDINGS: Bones: No fractures or dislocations. No suspicious bony lesions. The knee joint spaces appear well -preserved. Soft tissues: There is a moderate joint effusion. No suspicious soft tissue calcifications. IMPRESSION: Moderate joint effusion. No significant bony abnormality is seen. If there is strong clinical concern for internal arrangement of the knee, please consider a dedicated knee MRI for further evaluation (assuming that there is no contraindication). Reviewed by: Ramiro Landaverde MD on 10/14/2019 3:38 PM ASHLEIGH Approved by: Ramiro Landaverde MD on 10/14/2019 3:38 PM ASHLEIGH Station ID: [id number]
[2019-10-14 17:02] VITALS: BP 149/88
== END 2019-10-14 17:02 | disposition home or self-care (01) ==
LOC: ED 15:35
DX: S83.8X2A Sprain of other specified parts of left knee, initial encounter (principal); W17.89XA Other fall from one level to another, initial encounter; Y93.89 Activity, other specified; Y92.89 Other specified places as the place of occurrence of the external cause; Y99.0 Civilian activity done for income or pay; I10 Essential (primary) hypertension
CPT/HCPCS: 73562; 99283; A9270

== ENCOUNTER 2019-10-18 08:09 | Outpatient (CLI) | payer MEDICAID ==
--- NOTE | 2019-10-18 13:21 | MRI Report ---
PROCEDURE: Lumbar Spine W/O INDICATIONS: RT FLANK PAIN, THORACIC/LUMBAR PAIN TECHNIQUE: Noncontrast sagittal T1 spin echo and T2 fast echo, sagittal STIR, axial T1 and T2 fast spin echo thr ough the lumbar spine. In cases with scoliosis, additional coronal T2 fast spin echo may be performe d. COMPARISON: None. FINDINGS: Image quality: Excellent. Alignment and Curvature: No plain films are available for comparison. Thus, for numbering purposes, 5 lumbar type vertebral bodies will be presumed for the current report. This should be confirmed with plain film correlation prior to any lumbar spinal intervention. There is normal bony alignment. Bone Marrow: Marrow is of normal overall signal. No acute vertebral body compression fractures. Mi ld reactive signal within the endplates adjacent to the T10-T11, T11-T12, and L1-L2 intervertebral di scs. Spinal Cord: Conus medullaris terminates at the mid L2 level. Visualized cord demonstrates normal s ignal and size. Paraspinous Soft Tissues: No paravertebral masses. T12-L1: Normal in appearance. L1-L2: Mild disc desiccation and diffuse disc bulge. Mild facet and ligament flavum hypertrophy. M ild canal stenosis. No foraminal stenosis. L2-L3: Mild facet and ligament flavum hypertrophy. No significant canal, nor foraminal stenosis. L3-L4: Mild disc desiccation and diffuse disc bulge. Mild facet and ligament flavum hypertrophy. Mi ld epidural lipomatosis. Mild canal stenosis. Mild bilateral foraminal stenosis. L4-L5: Mild disc desiccation and diffuse disc bulge. Mild facet and ligament flavum hypertrophy. Mi ld canal stenosis. Mild bilateral foraminal stenosis. L5-S1: Mild disc desiccation and diffuse disc bulge. Mild facet and ligament flavum hypertrophy. Mi ld canal stenosis. Moderate subarticular foraminal stenosis on the left. Mild right foraminal stenosi s. IMPRESSION: 1. Multilevel degenerative disc and facet disease, in addition to epidural lipomatosis and ligamentum flavum hypertrophy. 2. Mild multilevel canal stenoses. 3. Multilevel foraminal stenoses, worst on the left at L5-S1 where there is moderate foraminal stenos is. 4. Five lumbar type vertebral bodies were presumed for the purposes of the current report. Correlati on with plainfilms for numbering purposes is recommended prior to any lumbar spinal intervention. Reviewed by: Fatimah Huber MD on 10/18/2019 1:20 PM PDT Approved by: Fatimah Huber MD on 10/18/2019 1:20 PM PDT Station ID: [id number]
--- NOTE | 2019-10-18 16:58 | MRI Report ---
PROCEDURE: Thoracic Spine W/O INDICATIONS: RT FLANK PAIN, THORACIC/LUMBAR PAIN TECHNIQUE: Noncontrast sagittal T1 spine echo and T2 fast spin echo, sagittal STIR, axial T1 and T2 fast spin ec ho through the thoracic spine. COMPARISON: MRI lumbar spine 6 . FINDINGS: Image quality: Excellent. Alignment and Curvature: There is normal bony alignment. Bone Marrow: Marrow is of normal overall signal. No acute vertebral body compression fractures. Spinal Cord: Visualized spinal cord is normal in size and signal. Paraspinous Soft Tissues: No paravertebral masses. Miscellaneous: On axial images, central canal and foramina appear widely patent at all scanned level s. Multilevel [id number] disc desiccation is present. Minimal disc bulge is present at T3-4. IMPRESSION: 1. Multilevel disc desiccation. 2. No spinal stenosis or foraminal narrowing. Reviewed by: Kimberly Rubalcava MD on 10/18/2019 4:57 PM PDT Approved by: Kimberly Rubalcava MD on 10/18/2019 4:57 PM PDT Station ID: [id number]
== END 2019-10-18 08:10 | disposition home or self-care (01) ==
LOC: DI 08:09
PROVIDERS: ATTEND Registered Nurse
DX: M51.36 Other intervertebral disc degeneration, lumbar region (principal); M48.061 Spinal stenosis, lumbar region without neurogenic claudication; M47.816 Spondylosis without myelopathy or radiculopathy, lumbar region; E88.2 Lipomatosis, not elsewhere classified; M51.37 Other intervertebral disc degeneration, lumbosacral region; M48.07 Spinal stenosis, lumbosacral region; M47.817 Spondylosis without myelopathy or radiculopathy, lumbosacral region; M51.34 Other intervertebral disc degeneration, thoracic region
CPT/HCPCS: 72146; 72148

== ENCOUNTER 2020-01-26 10:33 | Emergency (ER) | payer MEDICAID ==
[2020-01-26 10:39] VITALS: BP 155/93
[2020-01-26] MEDS ORDERED: CHERRY SYRUP 10 ML UDC PO ONE (11:04)
[2020-01-26] MEDS ORDERED: KETOROLAC 60 MG/2 ML VIAL IM STA (11:04)
[2020-01-26] MEDS ORDERED: DEXAMETHASONE 10 MG/ML VIAL PO STA (11:04)
--- NOTE | 2020-01-26 11:07 | ED Physician Documentation ---
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 She has had some problem with her neck back for some time and has intermittent episodes of pain she is been into physical therapy and had improvement with that and over the last 2 days she has developed pain again and she is uncertain why this happened and she suspects may be from overworking. She slipped on a heating pack last night and is in pain this morning. She denies any nausea vomiting fever, abdominal pain or urinary symptoms. She has been in to see her oncologist about 1 month ago without other specific findings. She is currently on anastrozole. Review of Systems Constitutional: reports: Sweats. denies: Fever Eyes: denies: Decreased vision Ears: denies: Ear pain Nose: reports: Congestion. denies: Rhinorrhea / runny nose Throat: denies: Sore throat Cardiac: denies: Chest pain / pressure Respiratory: denies: Dyspnea, Cough GI: reports: Diarrhea. denies: Nausea, Vomiting, Constipation Skin: denies: Rash Musculoskeletal: reports: Back pain. denies: Neck pain, Extremity pain Neurologic: denies: Generalized weakness, Focal weakness, Numbness PD PAST MEDICAL HISTORY - Past Medical History Cardiovascular: Hypertension Respiratory: Asthma Neuro: None Endocrine/Autoimmune: None GI: None MANAGER SPORTS: Breast cancer : None HEENT: None Psych: None Musculoskeletal: Osteoarthritis, Chronic back pain Derm: None - Past Surgical History Past Surgical History: Yes General: Appendectomy, Other /MANAGER SPORTS: Other - Present Medications Home Medications: Ambulatory Orders Medication Instructions Recorded Confirmed Anastrozole 1 tab PO DAILY 06/06/17 12/17/19 Anastrozole 1 mg PO DAILY 30 Days #30 tablet 09/26/19 12/17/19 Gabapentin 300 mg PO DAILY 09/26/19 12/17/19 Meloxicam 1 tab PO DAILY 12/17/19 12/17/19 Baclofen 5 - 10 mg PO Q8HR PRN #20 tablet 01/26/20 Oxycodone HCl/Acetaminophen 1 - 2 each PO Q6H PRN #14 tablet 01/26/20 [Percocet 5-325 mg Tablet] - Allergies Allergies/Adverse Reactions: Allergies Allergy/AdvReac Type Severity Reaction Status Date / Time No Known Drug Allergies Allergy Verified 01/26/20 10:38 - Social History Does the pt smoke?: No Smoking Status: Never smoker Does the pt drink ETOH?: No Does the pt have substance abuse?: No - Immunizations Immunizations are current?: Yes - POLST Patient has POLST: No PD ED PE NORMAL - Vitals Vital signs reviewed: Yes (hyertnsive ) - General General: Alert and oriented X 3, Well developed/nourished, Other (in tears with pain ) - HEENT HEENT: Atraumatic, PERRL, EOMI - Neck Neck: Supple, no meningeal sign - Respiratory Respiratory: No respiratory distress - Back Back: No CVA TTP, No spinal TTP, Other (There is point tenderness to the paraspinous muscles on the right side at about the level of the TL junction. There is no tenderness to palpation of the right kidney. There is no tenderness on the left.) - Derm Derm: Normal color, Warm and dry, No rash - Extremities Extremities: No deformity, No edema - Neuro Neuro: Alert and oriented X 3, turning sander tender 2-12 intact, No motor deficit, No sensory deficit, Normal speech Eye Opening: Spontaneous Motor: Obeys Commands Verbal: Oriented GCS Score: 15 - Psych Psych: Normal mood, Normal affect Results - Vitals Vitals: Vital Signs - 24 hr 01/26/20 10:36 Temperature 36.7 C Heart Rate 86 Respiratory 16 Rate Blood Pressure 155/93 H O2 Saturation 99 Oxygen O2 Source Room air PD MEDICAL DECISION MAKING - ED course Complexity details: reviewed old records, re-evaluated patient, considered differential, d/w patient ED course: 49-year-old female with recurrent back pain related to disc disease 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 She does have a history of breast cancer and she has had a bone scan and MRI both which do not demonstrate any evidence of metastases. Here in the emergency department she is treated with dexamethasone 10 mg orally and 60 mg of Toradol IM and we will place her on some oxycodone and baclofen. Departure - Departure Disposition: Home, Self Care Clinical Impression: Mid-back pain, acute Condition: Stable Instructions: ED Exercises Lumbar Muscles, ED Spasm Back No Trauma Follow-Up: William Hoang MD [Primary Care Provider] - Prescriptions: Baclofen 5 - 10 mg PO Q8HR PRN #20 tablet PRN Reason: back spasm Oxycodone HCl/Acetaminophen [Percocet 5-325 mg Tablet] 1 - 2 each PO Q6H PRN #14 tablet PRN Reason: pain Forms: Activity restrictions
== END 2020-01-26 11:36 | disposition home or self-care (01) ==
LOC: ED 10:33
DX: M54.6 Pain in thoracic spine (principal); M51.36 Other intervertebral disc degeneration, lumbar region; C50.919 Malignant neoplasm of unspecified site of unspecified female breast; I10 Essential (primary) hypertension
CPT/HCPCS: 96372; 99283; 99284; A9270

== ENCOUNTER 2020-02-05 08:16 | Outpatient (CLI) | payer MEDICAID ==
--- NOTE | 2020-02-05 09:19 | DEXA Report ---
PROCEDURE: Dexa Spine and/or Hip INDICATIONS: POST MENOPAUSAL TECHNIQUE: Dual energy x-ray absorptiometry (DXA) was performed on a [employer] System. Regions measur ed are the AP Spine, femoral neck, and if needed forearm. COMPARISON: 05/21/1917 FINDINGS: Lumbar Spine: Bone Mineral Density 1.057 g/cm/cm,T score -1.0, low normal, change from previous -11.4%, signific ant Left Hip: Bone Mineral Density 0.948 g/cm/cm,T score -0.5, normal, change from previous -13.4%, significant Left Femoral Neck: Bone Mineral Density 0.896 g/cm/cm, T score -1.0, low normal, (T score greater or equal to -1.0: NORMAL) (T score from -1.1 to -2.4: OSTEOPENIA) (T score less than or equal to -2.5 to: OSTEOPOROSIS) Impression: Significant interval decrease in bone mineral density compared to the prior study. Patients with diagnosis of osteoporosis or osteopenia should have regular bone mineral density assess ment. For those eligible for Medicare, routine testing is allowed once every 2 years. Testing frequ ency can be increased for patients who have rapidly progressing disease or for those who are receivin g medical therapy to restore bone mass. Reviewed by: Delilah Avalos MD on 02/05/2020 9:18 AM PDT Approved by: Delilah Avalos MD on 02/05/2020 9:18 AM PDT Station ID: [id number]
== END 2020-02-05 08:17 | disposition home or self-care (01) ==
LOC: DI 08:16
PROVIDERS: ATTEND Internal Medicine Hematology & Oncology
DX: N95.1 Menopausal and female climacteric states (principal); C50.912 Malignant neoplasm of unspecified site of left female breast
CPT/HCPCS: 77080

== ENCOUNTER 2020-02-05 08:17 | Outpatient (CLI) | payer MEDICAID ==
--- NOTE | 2020-02-06 09:55 | Mammography Report ---
BILATERAL DIGITAL DIAGNOSTIC MAMMOGRAM 3D/2D: 02/05/2020 CLINICAL: Personal history of left breast cancer. Comparison is made to exams dated: 11/17/2018 mammogram, 08/30/2017 mammogram, 02/15/2017 mammogram, mammogram, and 03/01/2016 mammogram - [facility]. There are scattered fibr oglandular elements in both breasts. There is a irregular post-surgical scar with dystrophic calcifications in the left breast at 1 o'cloc k posterior depth. This is slightly decreased in size. Calcifications are not significantly changed. No other significant masses, calcifications, or other findings are seen in either breast. IMPRESSION: BENIGN There is no mammographic evidence of malignancy. Slight interval decrease in the left lumpectomy scar . A 1 year mammogram is recommended. Exam findings conveyed to the patient. This exam was interpreted at Station ID: [id number]. NOTE: For mammograms, a report in lay terms will be sent to the patient. Approximately 15% of breast malignancies will not be visualized mammographically. In the management of a palpable breast mass, a negative mammogram must not discourage biopsy of a clinically suspicious lesion. Electronically Signed By: Terrance Martinez M.D. slc/:02/05/2020 10:07:17 ACR BI-RADS Category 2: Benign Finding(s) 3342F PARENCHYMAL PATTERN: (A) - The breast(s) demonstrate(s) scattered fibroglandular densities. BI-RADS CATEGORY: (2) - 2 RECOMMENDATION: (ANNUAL) - Recommend routine annual screening mammography. [id number] 1 year screening LATERALITY: (B)
== END 2020-02-05 08:18 | disposition home or self-care (01) ==
LOC: DI 08:17
PROVIDERS: ATTEND Internal Medicine Hematology & Oncology
DX: C50.912 Malignant neoplasm of unspecified site of left female breast (principal); N95.1 Menopausal and female climacteric states
CPT/HCPCS: 77066; 77080

== ENCOUNTER 2020-03-30 10:50 | Emergency (ER) | payer MEDICAID ==
[2020-03-30] MEDS ORDERED: LORazepam 1 MG TABLET PO STA (11:21)
[2020-03-30 11:29] VITALS: BP 149/106
--- NOTE | 2020-03-30 12:19 | ED Physician Documentation ---
History of Present Illness - Stated complaint Stated Complaint: WITHDRAWL - Chief complaint Chief Complaint: General - History obtained from History obtained from: Patient - Additonal information Additional information: Comes emergency department complaining of feeling is that she is withdrawing from oxycodone. 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 She has occasionally gotten the oxycodone as a prescription but most often, gets either from friends or off the street. She states she was tired of taking it and stopped 2 days ago and now she feels as though she is withdrawing. Patient states that she is not taking any other substances except marijuana. Patient was previously taking oxycodone on a daily basis. She states she is been nauseated and has not slept in a couple of nights. She has been having some sweats and chills but no vomiting. She was not ill with anything else prior. Review of Systems Ten Systems: 10 systems reviewed and negative Constitutional: reports: Reviewed and negative Eyes: reports: Reviewed and negative Ears: reports: Reviewed and negative Nose: reports: Reviewed and negative Throat: reports: Reviewed and negative Cardiac: reports: Reviewed and negative Respiratory: reports: Reviewed and negative GI: reports: Reviewed and negative : reports: Reviewed and negative Skin: reports: Reviewed and negative Musculoskeletal: reports: Reviewed and negative Neurologic: reports: Reviewed and negative Psychiatric: reports: Reviewed and negative Endocrine: reports: Reviewed and negative Immunocompromised: reports: Reviewed and negative PD PAST MEDICAL HISTORY - Past Medical History Cardiovascular: Hypertension Respiratory: Asthma Neuro: None Endocrine/Autoimmune: None GI: None 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 - Past Surgical History Past Surgical History: Yes General: Appendectomy, Other /SURGERY ATTENDANT: Other - Present Medications Home Medications: Ambulatory Orders Medication Instructions Recorded Confirmed Anastrozole 1 tab PO DAILY 06/06/17 12/17/19 Anastrozole 1 mg PO DAILY 30 Days #30 tablet 09/26/19 12/17/19 Gabapentin 300 mg PO DAILY 09/26/19 12/17/19 Meloxicam 1 tab PO DAILY 12/17/19 12/17/19 Baclofen 5 - 10 mg PO Q8HR PRN #20 tablet 01/26/20 Oxycodone HCl/Acetaminophen 1 - 2 each PO Q6H PRN #14 tablet 01/26/20 [Percocet 5-325 mg Tablet] Ondansetron Odt [Zofran] 4 mg TL Q6H PRN #10 tablet 03/30/20 cloNIDine 0.3 MG PATCH 1 each TOP Q7D PRN #3 patch 03/30/20 [[id number]] - Allergies Allergies/Adverse Reactions: Allergies Allergy/AdvReac Type Severity Reaction Status Date / Time No Known Drug Allergies Allergy Verified 03/30/20 11:00 - Social History Does the pt smoke?: Yes Smoking Status: Current every day smoker Does the pt drink ETOH?: No Does the pt have substance abuse?: Yes Substance Use and Type: Marijuana - Immunizations Immunizations are current?: Yes - POLST Patient has POLST: No PD ED PE NORMAL - Vitals Vital signs reviewed: Yes - General General: Alert and oriented X 3, No acute distress - HEENT HEENT: Atraumatic, PERRL, EOMI, Moist mucous membranes - Neck Neck: Supple, no meningeal sign - Cardiac Cardiac: RRR, No murmur, Strong equal pulses - Respiratory Respiratory: No respiratory distress, Clear bilaterally - Abdomen Abdomen: Soft, Non tender, Non distended - Derm Derm: Normal color, Warm and dry, No rash, Other (Piloerection) - Extremities Extremities: No deformity, No edema, No calf tenderness / cord - Neuro Neuro: Alert and oriented X 3, Other (Grossly normal) - Psych Psych: Normal mood, Normal affect Results - Vitals Vitals: Oxygen O2 Source Room air - Labs Labs: Laboratory Tests 03/30/20 03/30/20 11:54 12:55 Urine Color YELLOW Urine Clarity CLEAR Urine pH 6.5 Ur Specific [place] 1.010 Urine Protein NEGATIVE Urine Glucose (UA) NEGATIVE Urine Ketones TRACE Urine Occult Blood TRACE-INTA Urine Nitrite NEGATIVE Urine Bilirubin NEGATIVE Urine Urobilinogen 0.2 (NORMAL) Ur Leukocyte Esterase NEGATIVE Ur Microscopic Review NOT INDICATED Urine Culture Comments NOT INDICATED Urine HCG, Qual NEGATIVE Nasal Adenovirus (PCR) NOT DETECTED Nasal B. parapertussis DNA (PCR) NOT DETECTED Nasal Coronavir 229E PCR NOT DETECTED Nasal Coronavir HKU1 PCR NOT DETECTED Nasal Coronavir NL63 PCR NOT DETECTED Nasal Coronavir OC43 PCR NOT DETECTED Nasal Enterovir/Rhinovir PCR NOT DETECTED Nasal Influenza B PCR NOT DETECTED Nasal Influenza A PCR NOT DETECTED Nasal Parainfluen 1 PCR NOT DETECTED Nasal Parainfluen 2 PCR NOT DETECTED Nasal Parainfluen 3 PCR NOT DETECTED Nasal Parainfluen 4 PCR NOT DETECTED Nasal RSV (PCR) NOT DETECTED Nasal B.pertussis DNA PCR NOT DETECTED Nasal C.pneumoniae (PCR) NOT DETECTED Isaak Human Metapneumo PCR NOT DETECTED Nasal M.pneumoniae (PCR) NOT DETECTED Nasal SARS-CoV-2 (PCR) NOT DETECTED Urine Opiates Screen NEGATIVE Ur Oxycodone Screen NEGATIVE Urine Methadone Screen NEGATIVE Ur Propoxyphene Screen NEGATIVE Ur Barbiturates Screen NEGATIVE Ur Tricyclics Screen NEGATIVE Ur Phencyclidine Scrn NEGATIVE Ur Amphetamine Screen NEGATIVE U Methamphetamines Scrn NEGATIVE U Benzodiazepines Scrn NEGATIVE Urine Cocaine Screen NEGATIVE U Cannabinoids Screen POSITIVE H PD MEDICAL DECISION MAKING - ED course Complexity details: considered differential, d/w patient ED course: Patient was treated symptomatically with clonidine and Ativan. Social work gave the patient inpatient and outpatient resources and made the initial call to the crisis center for the patient, should she prefer to stay inpatient. Patient actually called the crisis center from our ED while awaiting discharge, and was granted a bed. Our nurse spoke with staff there, who requested clearance studies. These were done, and pt was discharged to present via POV to the crisis center. Departure - Departure Disposition: 01 Home, Self Care Clinical Impression: Narcotic dependency, continuous Condition: Stable Instructions: ED Drug Abuse Narcotic Sedative Rx Prescriptions: cloNIDine 0.3 MG PATCH [[id number]] 1 each TOP Q7D PRN #3 patch PRN Reason: Per Physician Order Ondansetron Odt [Zofran] 4 mg TL Q6H PRN #10 tablet PRN Reason: Nausea / Vomiting Discharge Date/Time: 03/30/20 13:00
[2020-03-30 12:59] LABS: MUDS CUTOFF CONCENTRATIONS CUTOFF CONC BELOW:
[2020-03-30 13:02] LABS: BILIRUBIN,URINE NEGATIVE (NEGATIVE); GLUCOSE, URINE (UA) NEGATIVE (NEGATIVE); KETONES,URINE (UA) TRACE mg/dL (NEGATIVE); LEUKOCYTE ESTERASE, URINE NEGATIVE (NEGATIVE); NITRITE,URINE NEGATIVE (NEGATIVE); OCCULT BLOOD,URINE TRACE-INTA (NEGATIVE); PH,URINE 6.5 PH (5.0-7.5); PROTEIN,URINE NEGATIVE (NEGATIVE); UROBILINOGEN,URINE 0.2 (NORMAL) E.U./dL (NORMAL)
[2020-03-30 13:05] LABS: CLARITY,URINE CLEAR (CLEAR); HCG UR QUAL NEGATIVE
[2020-03-30 13:26] LABS: AMPHETAMINE SCREEN,URINE NEGATIVE (NEGATIVE); BENZODIAZEPINES SCREEN, URINE NEGATIVE (NEGATIVE); COCAINE SCREEN URINE NEGATIVE (NEGATIVE); METHADONE SCREEN, URINE NEGATIVE (NEGATIVE); METHAMPHETAMINES SCREEN, URINE NEGATIVE (NEGATIVE); OPIATE SCREEN, URINE NEGATIVE (NEGATIVE); OXYCODONE SCREEN, URINE NEGATIVE (NEGATIVE); PROPOXYPHENE SCREEN, URINE NEGATIVE (NEGATIVE); TRICYCLIC ANTIDEPRESSANT,URINE NEGATIVE (NEGATIVE)
[2020-03-30 14:01] LABS: C. PNEUMONIAE- RESP PCR PANEL NOT DETECTED
== END 2020-03-30 13:00 | disposition home or self-care (01) ==
LOC: ED 10:50
DX: F11.20 Opioid dependence, uncomplicated (principal); R11.0 Nausea; R68.83 Chills (without fever); R61 Generalized hyperhidrosis; Z20.828 Contact with and (suspected) exposure to other viral communicable diseases; I10 Essential (primary) hypertension; F17.200 Nicotine dependence, unspecified, uncomplicated; Z08 Encounter for follow-up examination after completed treatment for malignant neoplasm; Z85.3 Personal history of malignant neoplasm of breast
CPT/HCPCS: 0202U; 80306; 81003; 81025; 99283; J8499; 81001; 87086

== ENCOUNTER 2020-04-30 09:02 | Outpatient (CLI) | payer MEDICAID ==
--- NOTE | 2020-04-30 14:53 | Nuclear Medicine Report ---
PROCEDURE: Bone Whole Body INDICATIONS: LEFT BREAST CA RADIOPHARMACEUTICAL: 20 6. mCi Tc-99m MDP IV. TECHNIQUE: Delayed whole-body scintigrams were obtained approximately 3-4 hours after intravenous injection of r adiotracer. Anterior and posterior views were acquired from vertex to feet. Additional left and rig ht oblique views of the skull and cervical spine were obtained. COMPARISON: Bone scan, whole body, 09/27/2018. MRI thoracic spine without contrast, 10/18/2019. MRI ann mbar spine without contrast, 10/18/2019. FINDINGS: There is normal uptake in skull, sternum, scapulae, ribs, bony pelvis and visualized shaft s of the lumbosacral. Low level increased uptake in the thoracic spine and lumbosacral area is most l ikely degenerative in nature. Focal uptake in the right hip is likely degenerative in nature. Focal u ptake in the lateral aspect of the left hindfoot is unchanged, likely degenerative in nature. There i s normal soft tissue uptake. IMPRESSION: 1. No definitive scintigraphic findings to suggest osseous metastasis. 2. There is a focal uptake projecting to the right hip, most likely secondary to degenerative/arthrit ic change. Recommend radiographic relation. Reviewed by: Arnaldo Yanez MD on 04/30/2020 2:52 PM PST Approved by: Arnaldo Yanez MD on 04/30/2020 2:52 PM PST Station ID: [id number]
== END 2020-04-30 09:03 | disposition home or self-care (01) ==
LOC: DI 09:02
PROVIDERS: ATTEND Physician Assistant
DX: C50.912 Malignant neoplasm of unspecified site of left female breast (principal)
CPT/HCPCS: 78306

== ENCOUNTER 2020-07-27 19:37 | Emergency (ER) | payer MEDICAID ==
[2020-07-27 19:45] VITALS: BP 162/107
[2020-07-27] MEDS ORDERED: oxyCODONE/ACET 5/325 Prepack 4 PO STA (20:10)
--- NOTE | 2020-07-27 20:11 | ED Physician Documentation ---
PD HPI HEENT - Stated complaint Stated Complaint: LT EAR PX - Chief complaint Chief Complaint: Heent - History obtained from History obtained from: Patient - Additional information Additional information: 2 days of progressive left ear pain and a sensation of swelling there with decreased hearing. No runny nose, sore throat or fevers. Review of Systems Constitutional: denies: Fever, Chills Ears: reports: Ear pain. 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 : None HEENT: None Psych: None Musculoskeletal: Osteoarthritis, Chronic back pain Derm: None - Past Surgical History Past Surgical History: Yes General: Appendectomy, Other /DOCUMENT REVIEW SPECIALIST: Other - Present Medications Home Medications: Ambulatory Orders Medication Instructions Recorded Confirmed DULoxetine [Cymbalta] 1 tab PO DAILY 04/07/20 07/27/20 Amoxicillin 500 mg PO TID #30 cap 07/27/20 Oxycodone HCl/Acetaminophen 1 - 2 each PO Q6H PRN #10 tablet 07/27/20 [Percocet 5-325 mg Tablet] - Allergies Allergies/Adverse Reactions: Allergies Allergy/AdvReac Type Severity Reaction Status Date / Time No Known Drug Allergies Allergy Verified 07/27/20 19:46 - Social History Does the pt smoke?: Yes Smoking Status: Current every day smoker Does the pt drink ETOH?: No Does the pt have substance abuse?: Yes Substance Use and Type: Marijuana - Immunizations Immunizations are current?: Yes - POLST Patient has POLST: No PD ED PE NORMAL - Vitals Vital signs reviewed: Yes - General General: Alert and oriented X 3, No acute distress - HEENT HEENT: Other (She does have bulging left otitis media without mastoid tenderness or evidence of canal inflammation.) - Neuro Neuro: Alert and oriented X 3, Normal speech - Psych Psych: Normal mood, Normal affect Results - Vitals Vitals: Vital Signs - 24 hr 07/27/20 19:43 Temperature 36.4 C L Heart Rate 86 Respiratory 17 Rate Blood Pressure 162/107 H O2 Saturation 99 Oxygen O2 Source Room air Departure - Departure Disposition: 01 Home, Self Care Clinical Impression: Otitis media Qualifiers: Otitis media type: suppurative Chronicity: acute Laterality: left Recurrence: recurrent Spontaneous tympanic membrane rupture: without spontaneous rupture Qualified Code(s): H66.005 - Acute suppurative otitis media without spontaneous rupture of ear drum, recurrent, left ear Condition: Good Record reviewed to determine appropriate education?: Yes Instructions: ED Otitis Media Acute Adult Prescriptions: Amoxicillin 500 mg PO TID #30 cap Oxycodone HCl/Acetaminophen [Percocet 5-325 mg Tablet] 1 - 2 each PO Q6H PRN #10 tablet PRN Reason: pain Comments: As discussed, I recommend watchful waiting without antibiotics for approximately 48 hours before filling and starting the antibiotics. If better on Tuesday no need to fill the prescription, if not improving go ahead and start the antibiotics at that time. Return if worsening. Forms: Watchful Waiting
== END 2020-07-27 20:22 | disposition home or self-care (01) ==
LOC: ED 19:37
DX: H66.005 Acute suppurative otitis media without spontaneous rupture of ear drum, recurrent, left ear (principal); I10 Essential (primary) hypertension; F17.200 Nicotine dependence, unspecified, uncomplicated
CPT/HCPCS: 99282; 99283

== ENCOUNTER 2021-01-27 18:06 | Outpatient (CLI) | payer MEDICAID ==
--- NOTE | 2021-01-27 19:35 | XRAY Report ---
PROCEDURE: Knee 2 View BILAT INDICATIONS: INTERNAL DERANGEMENT OF R KNEE TECHNIQUE: 3 views of the bilateral knee(s) were acquired. COMPARISON: None. FINDINGS: Bones: No fractures or dislocations. Right worse than left bilateral medial femoral tibial compartme nt osteoarthritic changes are seen. No suspicious bony lesions. Soft tissues: Right greater than left bilateral suprapatellar joint effusion is noted. No suspicious soft tissue calcifications. IMPRESSION: Right worse than left bilateral medial femoral tibial compartment osteoarthritis. No fra cture or dislocation. Right greater than left bilateral suprapatellar joint effusion. Reviewed by: Ganesh Glaser MD on 01/27/2021 7:34 PM PDT Approved by: Ganesh Glaser MD on 01/27/2021 7:34 PM PDT Station ID: [id number]
== END 2021-01-27 23:59 | disposition home or self-care (01) ==
LOC: DI.N 18:06
PROVIDERS: ATTEND Physician Assistant Medical
DX: M23.91 Unspecified internal derangement of right knee (principal); M17.0 Bilateral primary osteoarthritis of knee; M25.462 Effusion, left knee; M25.461 Effusion, right knee

== ENCOUNTER 2021-02-25 07:04 | Emergency (ER) | payer MEDICAID ==
[2021-02-25] MEDS ORDERED: LIDOCAINE-MPF 2% 7 ML in SODIUM CHLORIDE 0.9% 50 ML IV STA (07:32)
[2021-02-25] MEDS ORDERED: KETOROLAC 30 MG/ML VIAL IVP STA (07:32)
[2021-02-25] MEDS ORDERED: SODIUM CHLORIDE 0.9% 1,000 ML IV STA (07:33)
--- NOTE | 2021-02-25 07:36 | ED Physician Documentation ---
History of Present Illness - Stated complaint Stated Complaint: ABD PX - Chief complaint Chief Complaint: Abd Pain - History obtained from History obtained from: Patient - History of Present Illness Timing: Yesterday Pain level max: 7 Pain level now: 5 - Additonal information Additional information: Patient is a 50-year-old female who presents to the emergency department with right flank pain that started yesterday. She states she has had several renal stones in the past and states that this feels similar. She describes the pain as dull and aching with occasional sharp stabbing. No urinary symptoms. No hematuria. No nausea or vomiting. Did have a small amount of diarrhea this morning. No fevers. No chills. Has never had to have a kidney stone removed. Patient states she has not taken anything for pain today. Took Tylenol last night. Review of Systems Ten Systems: 10 systems reviewed and negative Constitutional: denies: Fever, Chills Respiratory: denies: Cough GI: denies: Vomiting, Hematemesis, Bloody / black stool : denies: Dysuria, Frequency, Hesitancy Skin: denies: Rash Musculoskeletal: denies: Neck pain, Back pain Neurologic: denies: Headache PD PAST MEDICAL HISTORY - Past Medical History Cardiovascular: Hypertension Respiratory: Asthma Neuro: None Endocrine/Autoimmune: None GI: None VETERINARY PRACTITIONER: Breast cancer : None HEENT: None Psych: None Musculoskeletal: Osteoarthritis, Chronic back pain Derm: None - Past Surgical History Past Surgical History: Yes General: Appendectomy, Other /VETERINARY PRACTITIONER: Other - Present Medications Home Medications: Ambulatory Orders Medication Instructions Recorded Confirmed DULoxetine [Cymbalta] 1 tab PO DAILY 04/07/20 07/27/20 Amoxicillin 500 mg PO TID #30 cap 07/27/20 Oxycodone HCl/Acetaminophen 1 - 2 each PO Q6H PRN #10 tablet 07/27/20 [Percocet 5-325 mg Tablet] Oxycodone HCl/Acetaminophen 1 each PO Q6H PRN #9 tablet 02/25/21 [Percocet 5-325 mg Tablet] - Allergies Allergies/Adverse Reactions: Allergies Allergy/AdvReac Type Severity Reaction Status Date / Time No Known Drug Allergies Allergy Verified 02/25/21 07:29 - Social History Does the pt smoke?: Yes Smoking Status: Current every day smoker Does the pt drink ETOH?: No Does the pt have substance abuse?: Yes - Immunizations Immunizations are current?: Yes - POLST Patient has POLST: No PD ED PE NORMAL - Vitals Vital signs reviewed: Yes - General General: Alert and oriented X 3, No acute distress, Well developed/nourished - HEENT HEENT: Moist mucous membranes - Neck Neck: Supple, no meningeal sign - Cardiac Cardiac: RRR, Strong equal pulses - Respiratory Respiratory: No respiratory distress, Clear bilaterally - Abdomen Abdomen: Soft, Non tender, Non distended - Back Back: Other (Mild right CVA tenderness.) - Derm Derm: Warm and dry - Extremities Extremities: No edema - Neuro Neuro: Alert and oriented X 3 - Psych Psych: Normal mood, Normal affect Results - Vitals Vitals: Vital Signs - 24 hr 02/25/21 02/25/21 07:23 09:18 Temperature 36.8 C Heart Rate 70 84 Respiratory 17 24 Rate Blood Pressure 152/85 H 160/102 H O2 Saturation 99 98 Oxygen O2 Source Room air - Labs Labs: Laboratory Tests 02/25/21 02/25/21 02/25/21 07:30 07:41 09:21 WBC 8.6 RBC 5.43 H Hgb 15.4 Hct 47.3 H MCV 87.1 MCH 28.4 MCHC 32.6 RDW 12.6 Plt Count 364 MPV 9.3 Neut # (Auto) 5.9 Lymph # (Auto) 2.0 [place] # (Auto) 0.6 Eos # (Auto) 0.1 Baso # (Auto) 0.1 Absolute Nucleated RBC 0.00 Nucleated RBC % 0.0 Sodium 138 Potassium 4.4 Chloride 105 Carbon Dioxide 22 Anion Gap 11.0 BUN 17 Creatinine 0.6 Estimated GFR (MDRD) 105 Glucose 105 H Calcium 9.3 Total Bilirubin 1.1 H AST 25 ALT 15 Alkaline Phosphatase 56 Total Protein 8.0 Albumin 4.4 Globulin 3.6 Albumin/Globulin Ratio 1.2 Lipase 35 Urine Color YELLOW Urine Clarity CLEAR Urine pH 6.0 Ur Specific [place]da 1.010 Urine Protein NEGATIVE Urine Glucose (UA) NEGATIVE Urine Ketones NEGATIVE Urine Occult Blood TRACE-INTA Urine Nitrite NEGATIVE Urine Bilirubin NEGATIVE Urine Urobilinogen 0.2 (NORMAL) Ur Leukocyte Esterase NEGATIVE Ur Microscopic Review NOT INDICATED Urine Culture Comments NOT INDICATED - Rads (name of study) CT abdomen pelvis Radiology: Final report received, EMP read contemporaneously, See rad report (No acute abnormality) PD MEDICAL DECISION MAKING - ED course Complexity details: reviewed results, re-evaluated patient, considered differential, d/w patient ED course: 50-year-old female with right flank pain. No ureteral stones on CT scan. No significant lab abnormalities or abnormalities on her urine. Pain well controlled here. Patient is well-appearing, nontoxic. Afebrile. She states that she "had a panic attack" during her emergency department stay and felt better after Ativan. We will prescribe a small amount of pain medication for her and she will follow-up with her doctor for further care. I am prescribing a short course of short-acting opioid pain medication for this patient. 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 I have discussed that the opioids are for short term therapy only, and will not be refilled from the ED. patient counseled regarding signs and symptoms for which I believe and urgent re-evaluation would be necessary. Patient with good understanding of and agreement to plan and is comfortable going home at this time This document was made in part using voice recognition software. While efforts are made to proofread this document, sound alike and grammatical errors may occur. Departure - Departure Disposition: 01 Home, Self Care Clinical Impression: Abdominal pain Qualifiers: Abdominal location: unspecified location Qualified Code(s): R10.9 - Unspecified abdominal pain Condition: Good Instructions: ED Abdominal Pain Female Non-Specific Abdominal Pain Follow-Up: Vianey Salinas ARNP [Primary Care Provider] - Within 3 Days Prescriptions: Oxycodone HCl/Acetaminophen [Percocet 5-325 mg Tablet] 1 each PO Q6H PRN #9 tablet PRN Reason: pain Comments: The cause of your pain is unclear today. Your CT scan and laboratory testing did not show any acute abnormalities. Please follow-up with your doctor for further care. Return if you worsen. Your prescriptions were sent to [facility] in [place]. I am prescribing a short course of narcotic pain medication for you. These are potentially dangerous and addictive medications that should be used carefully. These medications may constipate you. Take an yxtx-kus-bnraqsc stool softener (docusate) twice daily with plenty of water while taking these medications. If you go 24 hours without a bowel movement, take sjum-pex-salvruf miralax, per package instructions. Do not drink or drive while taking these medications. If you received narcotic or sedating medications while in the emergency department, do not drive for 24 hours. Store this medication in a safe, secure place and out of reach of children. It is a violation of federal law to give or sell this medication to another person or to use in a manner other than prescribed. The ED will not refill narcotic prescriptions, including prescriptions lost or stolen. To dispose of unwanted medications: 1. [facility] at [address] in [place] has a medication drop box. They accept prescription medications (in pill form) Tuesday through Tuesday 9:00 a.m. to 5:00 p.m. 2. The [facility] accepts prescription medications (in pill form only) for disposal year round. Call for more information. 3. Contact the [facility] for the next [facility] sponsored prescription drug collection event. , [phone], or [phone]; Discharge Date/Time: 02/25/21 10:16
[2021-02-25] MEDS ORDERED: LIDOCAINE-MPF 2% 5 ML VIAL ONE (07:42)
[2021-02-25 07:46] LABS: BASOPHILS # (AUTO) 0.1 10^3/uL (0.0-0.1); BASOPHILS % (AUTO) 0.6 %; EOSINOPHILS # (AUTO) 0.1 10^3/uL (0.0-0.7); HCT - HEMATOCRIT 47.3 % (37.0-47.0); HGB - HEMOGLOBIN 15.4 g/dL (12.0-16.0); LYMPHOCYTES % (AUTO) 23.1 %; MEAN CORPUSCULAR HEMOGLOBIN 28.4 pg (27.0-31.0); MEAN CORPUSCULAR HGB CONC 32.6 g/dL (32.0-36.0); MEAN CORPUSCULAR VOLUME 87.1 fL (81.0-99.0); MEAN PLATELET VOLUME 9.3 fL (7.9-10.8); MONOCYTES # (AUTO) 0.6 10^3/uL (0.0-1.0); MONOCYTES % (AUTO) 6.4 %; NEUTROPHILS # (AUTO) 5.9 10^3/uL (1.5-6.6); NEUTROPHILS % (AUTO) 68.6 %; PLT - PLATELET COUNT 364 10^3/uL (130-450); RED BLOOD COUNT 5.43 10^6/uL (4.20-5.40); RED CELL DISTRIBUTION WIDTH 12.6 % (12.0-15.0); WHITE BLOOD COUNT 8.6 x10^3/uL (4.8-10.8)
--- NOTE | 2021-02-25 08:07 | CT Report ---
PROCEDURE: Abdomen/Pelvis WO INDICATIONS: Right flank pain, h/o renal stones TECHNIQUE: Noncontrast 5 mm thick sections acquired from the diaphragms to the symphysis. 5 mm coronal and sagi ttal reformats were then performed. For radiation dose reduction, the following was used: automated exposure control, adjustment of mA and/or kV according to patient size. COMPARISON: Reference is made to the CT abdomen and pelvis report dated September 09, 2019. FINDINGS: Inferior chest: No focal consolidation, pleural effusion, or pneumothorax. No cardiomegaly or perica rdial effusion. Gallbladder: The gallbladder is distended with a smooth wall. Biliary tree: No intra-or extrahepatic biliary ductal dilatation. Liver: The liver demonstrates normal appearance. Spleen: Normal size and morphology is seen. Pancreas: Normal morphology without masses or inflammatory changes. Adrenals: Normal size without masses. Kidneys: Normal size and morphology. No contour deforming solid masses or evidence of obstructive uro nichole. Redemonstrated calyceal or parenchymal calcification in the medial right kidney. Vasculature: No evidence of aneurysm or other significant vascular pathology. Lymphatic system: No pathologic enlargement by size criteria. Bowel: No intestinal obstruction. The appendix is not well-visualized. Peritoneum/Retroperitoneum: No free intraperitoneal gas or large collection. Urinary bladder: Underdistended. Pelvic organs: No significant abnormality. Bones/soft tissues: No significant abnormality. IMPRESSION: 1.No significant interval change. Reviewed by: Denis Kim MD on 02/25/2021 8:06 AM PDT Approved by: Denis Kim MD on 02/25/2021 8:06 AM PDT Station ID: [id number]
[2021-02-25] MEDS ORDERED: LORazepam 2 MG/ML VIAL IVP STA (08:25)
[2021-02-25 08:46] LABS: BILIRUBIN,URINE NEGATIVE (NEGATIVE); GLUCOSE, URINE (UA) NEGATIVE (NEGATIVE); KETONES,URINE (UA) NEGATIVE (NEGATIVE); LEUKOCYTE ESTERASE, URINE NEGATIVE (NEGATIVE); NITRITE,URINE NEGATIVE (NEGATIVE); OCCULT BLOOD,URINE TRACE-INTA (NEGATIVE); PROTEIN,URINE NEGATIVE (NEGATIVE); UROBILINOGEN,URINE 0.2 (NORMAL) E.U./dL (NORMAL)
[2021-02-25 08:47] LABS: CLARITY,URINE CLEAR (CLEAR)
[2021-02-25 09:18] VITALS: BP 160/102
[2021-02-25 09:36] LABS: ALBUMIN 4.4 g/dL (3.2-5.5); ALBUMIN/GLOBULIN RATIO 1.2 (1.0-2.2); BILIRUBIN,TOTAL 1.1 mg/dL (0.2-1.0); CALCIUM 9.3 mg/dL (8.5-10.3); CREATININE 0.6 mg/dL (0.4-1.0); POTASSIUM 4.4 mmol/L (3.5-5.0)
[2021-02-25] MEDS ORDERED: oxyCODONE 5 MG TABLET PO STA (09:56)
== END 2021-02-25 10:16 | disposition home or self-care (01) ==
LOC: ED 07:04
DX: R10.9 Unspecified abdominal pain (principal); F17.200 Nicotine dependence, unspecified, uncomplicated
CPT/HCPCS: 36415; 74176; 80053; 81003; 83690; 85025; 96374; 96375; 99284; A9270; J2060; J7040; 81001; 87086

== ENCOUNTER 2021-12-30 12:32 | Outpatient (CLI) | payer MEDICAID | END 2021-12-30 12:33 | disposition critical access hospital (66) | LOC: EMS 12:32 | DX: M25.561 Pain in right knee (principal); W11.XXXA Fall on and from ladder, initial encounter; Y92.009 Unspecified place in unspecified non-institutional (private) residence as the place of occurrence of the external cause | CPT/HCPCS: A0425; A0429; A0999 ==

== ENCOUNTER 2021-12-30 12:46 | Emergency (ER) | payer MEDICAID ==
[2021-12-30] MEDS ORDERED: HYDROmorphone 1 MG/ML CARPUJECT IVP STA (13:13)
--- NOTE | 2021-12-30 13:21 | ED Physician Documentation ---
History of Present Illness - Stated complaint Stated Complaint: FALL OFF LADDER/KNEE INJ - Chief complaint Chief Complaint: Trauma Ext - Additonal information Additional information: 51-year-old female presents emergency department for evaluation of acute right knee pain. Patient was training very bushes and began to fall so she jumped off The ladder falling onto both of her feet and then dropping to her knees. She felt an immediate pop in the lateral and posterior knee. She has had swelling and difficulty bearing weight since. No history of previous injury to the knee. She did not strike her head or lose consciousness. Not anticoagulated. Denying pain in any other region of the body back hip or spine. 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 : None HEENT: None Psych: None Musculoskeletal: Osteoarthritis, Chronic back pain Derm: None - Past Surgical History Past Surgical History: Yes General: Appendectomy, 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: Other - Present Medications Home Medications: Ambulatory Orders Medication Instructions Recorded Confirmed DULoxetine [Cymbalta] 1 tab PO DAILY 04/07/20 07/27/20 Amoxicillin 500 mg PO TID #30 cap 07/27/20 Oxycodone HCl/Acetaminophen 1 - 2 each PO Q6H PRN #10 tablet 07/27/20 [Percocet 5-325 mg Tablet] Oxycodone HCl/Acetaminophen 1 each PO Q6H PRN #9 tablet 02/25/21 [Percocet 5-325 mg Tablet] Anastrozole 1 mg PO DAILY 12/28/21 12/28/21 oxyCODONE [Roxicodone] 5 mg PO TID PRN #20 tablet 12/30/21 - Allergies Allergies/Adverse Reactions: Allergies Allergy/AdvReac Type Severity Reaction Status Date / Time No Known Drug Allergies Allergy Verified 12/30/21 12:59 - Social History Does the pt smoke?: Yes Smoking Status: Current every day smoker Does the pt drink ETOH?: No Does the pt have substance abuse?: Yes - Immunizations Immunizations are current?: Yes - POLST Patient has POLST: No PD ED PE EXPANDED - General General: Alert, No acute distress - Extremities Extremities: Right knee (swelling. significant tenderness posterior and lateral knee. painful passive ROM. does not all laxity or drawer testing. ) Results - Vitals Vitals: Vital Signs - 24 hr 12/30/21 12:52 Temperature 36.7 C Heart Rate 90 Respiratory 20 Rate Blood Pressure 148/42 H O2 Saturation 100 Oxygen O2 Source Room air - Rads (name of study) octavio russell Radiology: Final report received (Slight irregularity involving the head and neck of the fibula is seen. Finding is concerning for subtle nondisplaced fracture involving the fibular head neck. No other fracture dislocation is noted) PD MEDICAL DECISION MAKING - ED course Complexity details: reviewed results, re-evaluated patient, considered differential, d/w patient ED course: 51-year-old female presents emergency department for evaluation of right posterior knee pain. She was going to fall off a ladder instead jumped landing onto her legs and then falling to her knees. She felt a pop in the posterior and lateral knee. Quite tender and limits the amount of exam allowed. X-ray reveals an irregularity of the proximal fibular head concerning for fracture. Given the history I also suspect she lateral likely has a PCL and/or concurrent LCL ligamentous injury. Patient was placed in a knee immobilizer and given crutches. Limited prescription for oxycodone is sent to the pharmacy. Recommend very close follow-up with orthopedics. May need repair of the ligamentous injury. I am prescribing a short course of short-acting opioid pain medication for this patient. 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 I have discussed that the opioids are for short term therapy only, and will not be refilled from the ED. Departure - Departure Disposition: 01 Home, Self Care Clinical Impression: Fracture of proximal end of fibula Qualifiers: Encounter type: initial encounter Fracture type: closed Fracture morphology: unspecified fracture morphology Laterality: right Qualified Code(s): S82.831A - Other fracture of upper and lower end of right fibula, initial encounter for closed fracture Tear of PCL (posterior cruciate ligament) of knee Qualifiers: Encounter type: initial encounter Laterality: right Qualified Code(s): S83.521A - Sprain of posterior cruciate ligament of right knee, initial encounter Condition: Stable Record reviewed to determine appropriate education?: Yes Instructions: ED Fx Lower Extr Ch Follow-Up: Ania Gentile ARNP [Provider Admit Priv/Credential] - Prescriptions: oxyCODONE [Roxicodone] 5 mg PO TID PRN #20 tablet PRN Reason: Pain Comments: Elsi unfortunately the x-ray shows a proximal fibula fracture. This type of fracture does not require orthopedic repair. However I also suspect that you have a PCL and/or an LCL ligamentous injury associated with this. This may need orthopedic intervention. You are to be nonweightbearing on the right leg until seen by orthopedics. Please wear your knee immobilizer at all times with the exception of showering. In general take 600 mg of ibuprofen or alternate with 500 mg of Tylenol for discomfort. For severe pain I have sent a prescription for oxycodone to the pharmacy. I am giving you the name of Ania Gentile the nurse practitioner charged with follow-up of ER patients this week. Please call the office as soon as possible to request an emergent orthopedic referral Your prescription has been sent to the [facility] pharmacy I am prescribing a short course of narcotic pain medication for you. These are potentially dangerous and addictive medications that should be used carefully. These medications may constipate you. Take an fzqn-xjd-uysflvn stool softener (docusate) twice daily with plenty of water while taking these medications. If you go 24 hours without a bowel movement, take tiwc-uic-tjedltt miralax, per package instructions. Do not drink or drive while taking these medications. If you received narcotic or sedating medications while in the emergency department, do not drive for 24 hours. Store this medication in a safe, secure place and out of reach of children. It is a violation of federal law to give or sell this medication to another person or to use in a manner other than prescribed. The ED will not refill narcotic prescriptions, including prescriptions lost or stolen. To dispose of unwanted medications: 1. [facility] at [address] in [place] has a medication drop box. They accept prescription medications (in pill form) Tuesday through Tuesday 9:00 a.m. to 5:00 p.m. 2. The [facility] Department accepts prescription medications (in pill form only) for disposal year round. Call for more information. 3. Contact the [facility] for the next [facility] sponsored prescription drug collection event. , [phone], or [phone]; Note that many narcotic pain relievers also contain Tylenol/acetaminophen. Please ensure that your total dose of acetaminophen from all sources does not exceed 3 g (3000 mg) per day.
--- NOTE | 2021-12-30 13:41 | XRAY Report ---
PROCEDURE: Knee 3 View RT INDICATIONS: fall off ladder TECHNIQUE: 3 views of the right knee(s) were acquired. COMPARISON: None. FINDINGS: Bones: Slight irregularity involving head and neck of right fibula is seen. No other fracture or dis location is seen. Moderate medial femoral tibial compartment osteoarthritic changes are seen. Mild la teral patellar subluxation is also noted. No suspicious bony lesions. Soft tissues: There is small to moderate joint effusion.. No suspicious soft tissue calcifications. IMPRESSION: Finding is concerning for a subtle nondisplaced fracture involving fibular head/neck reg ion. No other fracture or dislocation is noted. Moderate joint effusion and moderate medial femoral-t ibial compartment osteoarthritis. Reviewed by: Ganesh Glaser MD on 12/30/2021 1:40 PM PDT Approved by: Ganesh Glaser MD on 12/30/2021 1:40 PM PDT Station ID: [id number]
[2021-12-30 14:36] VITALS: BP 156/87
--- NOTE | 2021-12-30 15:05 | XRAY Report ---
PROCEDURE: Foot 3 View LT INDICATIONS: medial foot pain after fall TECHNIQUE: 3 views of the foot were acquired. COMPARISON: None FINDINGS: Bones: No fractures or dislocations. Mild osteoarthritic changes are noted throughout left foot. Fi nding is more prominent at first MTP joint. Small dorsal calcaneal enthesophyte is seen. No suspiciou s bony lesions. Soft tissues: No tibiotalar joint effusion. Achilles tendon appears normal. IMPRESSION: No gross acute left fracture or dislocation. Mild to moderate left foot joint osteoarthritis most pro minent at first MTP joint. Reviewed by: Ganesh Glaser MD on 12/30/2021 3:04 PM PDT Approved by: Ganesh Glaser MD on 12/30/2021 3:04 PM PDT Station ID: [id number]
== END 2021-12-30 14:47 | disposition home or self-care (01) ==
LOC: EDUNIT# → ED 12:46
DX: S82.831A Other fracture of upper and lower end of right fibula, initial encounter for closed fracture (principal); S83.521A Sprain of posterior cruciate ligament of right knee, initial encounter; W11.XXXA Fall on and from ladder, initial encounter; Y93.H2 Activity, gardening and landscaping; F17.200 Nicotine dependence, unspecified, uncomplicated
CPT/HCPCS: 73562; 73630; 96374; 99283; 99284; J1170

== ENCOUNTER 2022-01-08 08:00 | Outpatient (CLI) | payer MEDICAID ==
--- NOTE | 2022-01-08 15:07 | XRAY Report ---
PROCEDURE: Knee 3 View RT INDICATIONS: RIGHT KNEE PAIN TECHNIQUE: 3 views of the right knee(s) were acquired. COMPARISON: None. FINDINGS: Bones: No fractures or dislocations. Mild to moderate tricompartmental osteoarthritis is seen more p rominent in medial femoral tibial compartment. No suspicious bony lesions. Soft tissues: Large suprapatellar joint effusion is seen. No suspicious soft tissue calcifications. IMPRESSION: Large joint effusion. No definite fracture or dislocation. Mild to moderate tricompartme ntal osteoarthritis more prominent in medial femoral tibial compartment. If indicated, MRI of knee ca n be done for further evaluation of internal derangement. Reviewed by: Ganesh Glaser MD on 01/08/2022 3:06 PM PDT Approved by: Ganesh Glaser MD on 01/08/2022 3:06 PM PDT Station ID: [id number]
== END 2022-01-08 23:59 | disposition home or self-care (01) ==
LOC: DI.WOS 08:00
PROVIDERS: ATTEND Physician Assistant
DX: M25.461 Effusion, right knee (principal); M17.11 Unilateral primary osteoarthritis, right knee

== ENCOUNTER 2022-06-09 11:45 | Outpatient (CLI) | payer MEDICAID ==
[2022-06-09 17:51] LABS: HGB - HEMOGLOBIN 12.2 g/dL (12.0-16.0); MEAN CORPUSCULAR HGB CONC 30.5 g/dL (32.0-36.0); MEAN CORPUSCULAR VOLUME 85.1 fL (81.0-99.0); MEAN PLATELET VOLUME 9.7 fL (7.9-10.8); RED BLOOD COUNT 4.7 10^6/uL (4.20-5.40); RED CELL DISTRIBUTION WIDTH 12.6 % (12.0-15.0); WHITE BLOOD COUNT 5.2 x10^3/uL (4.8-10.8)
[2022-06-09 18:02] LABS: CALCIUM 9.7 mg/dL (8.5-10.3); CREATININE 0.6 mg/dL (0.4-1.0); POTASSIUM 4.3 mmol/L (3.5-5.0)
[2022-06-09 18:19] LABS: THYROID STIMULATING HORMONE 5.79 uIU/mL (0.34-5.60)
[2022-06-09 21:54] LABS: FREE T4 (FREE THYROXINE) 0.71 ng/dL (0.58-1.64)
== END 2022-06-09 12:00 | disposition home or self-care (01) ==
LOC: LAB.N 11:45
PROVIDERS: ATTEND Emergency Medicine
DX: R60.0 Localized edema (principal)
CPT/HCPCS: 36415; 80048; 83880; 84439; 84443; 85027